=== PATIENT | female | born 1955 | race Caucasian/White ===

== ENCOUNTER → 2016-10-05 | Outpatient (CLI) | payer BC ==
[~2016-10-05] MED LIST: ATEN50TA8 PO; FEXO5TAB2 PO; LOSA1TAB PO
--- NOTE | 2016-10-05 14:17 | DIAGNOSTIC IMAGING REPORT ---
A-PORT CHECK CLINICAL HISTORY: T82.41XAtube position COMPARISON STUDY: None FLUOROSCOPY TIME: 6 seconds. FINDINGS: The port is patent. Contrast is seen exiting the tip of the central catheter in superior vena cava. There appears to be a localized fibrin sheath. The tube itself is intact. IMPRESSION: 1. Study confirms the tube to be patent. 2. Fibrin sheath at the very tip of the catheter 3. No evidence for tube breakage or obstructive change The above report was generated using voice recognition software. It may contain grammatical, syntax or spelling errors. Electronically signed by: Evan Andrews M.D. 10/05/2016 2:16 PM Dictated Date/Time: 10/05/2016 2:14 PM
== END | disposition home or self-care (01) ==
LOC: C.RAD 13:36
PROVIDERS: ATTEND Internal Medicine Hematology
DX: T82.41XA Breakdown (mechanical) of vascular dialysis catheter, initial encounter (principal); Y84.9 Medical procedure, unspecified as the cause of abnormal reaction of the patient, or of later complication, without mention of misadventure at the time of the procedure

== ENCOUNTER → 2017-07-13 | Outpatient (CLI) | payer OTHER ==
[~2017-07-13] MED LIST changes: +OPTIRAY 320 IV PRN
--- NOTE | 2017-07-13 08:34 | DIAGNOSTIC IMAGING REPORT ---
ABD/PELVIS IV AND ORAL CONT CT DOSE: HISTORY: Ovarian carcinoma X TECHNIQUE: Multiaxial CT images of the abdomen and pelvis were performed following the use of intravenous and oral contrast. A dose lowering technique was utilized adhering to the principles of ALARA. COMPARISON STUDY: 09/06/2016 GG FINDINGS: Lung bases are clear. Several small nonspecific hepatic hypodensities. No biliary ductal distention. Moderate abdominal and pelvic ascites. Subcapsular density of the spleen unchanged in the prior study. Kidneys negative for hydronephrosis. Omental implants are present are considered minimal. These may be its inferior by the presence of the abdominal and pelvic ascites. Nonobstructive bowel pattern. No significant abdominal or pelvic adenopathy. Slight heterogeneity of bone marrow density unchanged in the prior exam. No significant inguinal adenopathy. IMPRESSION: Moderate abdominal and pelvic ascites. Stable renal hepatic and potentially splenic cysts. Nonobstructive bowel pattern. The above report was generated using voice recognition software. It may contain grammatical, syntax or spelling errors. Electronically signed by: Evan Andrews M.D. 07/13/2017 8:33 AM Dictated Date/Time: 07/13/2017 8:25 AM
--- NOTE | 2017-07-13 08:40 | DIAGNOSTIC IMAGING REPORT ---
CHEST CT WITH CONTRAST CT DOSE: 1627.47 mGy.cm HISTORY: Acute epigastric abdominal pain with history of ovarian carcinoma X TECHNIQUE: Multiaxial CT images of the chest were performed following the intravenous administration of contrast. A dose lowering technique was utilized adhering to the principles of ALARA. COMPARISON: CT chest, abdomen and pelvis from outside facility 09/06/2016, CT abdomen and pelvis of same day FINDINGS: Heterogeneous multinodular thyroid with 1.4 cm low attenuating nodule of the inferior right thyroid. No pathologically enlarged lymph nodes of the chest are identified. The heart is normal in size without pericardial effusion. Right internal jugular Khlteo-k-Dlpc catheter is noted with distal tip terminating in the SVC. The thoracic aorta is normal in both course and caliber with moderate mixed plaquing of the aortic arch and origin of the great vessels. Imaged great vessels appear patent. Pulmonary arterial tree is unremarkable. There is no pneumothorax or pleural effusion. No lobar airspace consolidation, suspicious pulmonary nodules or masses identified. Minimal bilateral bronchial wall thickening, possibly reflecting bronchitis. Mild scarring of the right lung apex. Minimal apical centrilobular emphysematous changes. Ascites of the upper abdomen. Low attenuating lesions of the liver are seen measuring up to 1.0 cm within left hepatic lobe suggesting hepatic cysts. Small sliding-type hiatal hernia. 2.1 x 0.9 cm hypoechoic subcapsular lesion of the posterior spleen appears unchanged from comparison study 09/06/2016. Decreased size of a soft tissue nodule the subcutaneous tissues posterior to the right shoulder, now measuring 9 mm, previously measuring 1.8 cm which is likely benign. Bones appear intact without suspicious lytic or blastic bony lesions identified. No acute fracture identified. Mild to moderate multilevel endplate spurring about the spine. IMPRESSION: 1. No acute intrathoracic abnormality identified. No evidence of pathologic adenopathy or intrathoracic metastatic disease. 2. Upper abdominal ascites. 3. No evidence of bony metastatic disease. 4. Small sliding-type hiatal hernia. Electronically signed by: Zion Gross M.D. 07/13/2017 8:39 AM Dictated Date/Time: 07/13/2017 8:28 AM
== END | disposition home or self-care (01) ==
LOC: C.CTS 07:47
PROVIDERS: ATTEND Internal Medicine Hematology
DX: C78.6 Secondary malignant neoplasm of retroperitoneum and peritoneum (principal); R10.13 Epigastric pain; R18.8 Other ascites; K76.89 Other specified diseases of liver; K44.9 Diaphragmatic hernia without obstruction or gangrene

== ENCOUNTER 2020-02-14 14:38 | Inpatient (IN) ==
[2020-02-14] MEDS ORDERED: SODIUM CHLORIDE 0.9% 1000ML 1,000 ML IV ONE (15:40)
--- NOTE | 2020-02-14 15:47 | Emergency Department Note ---
Impression & Plan Hypomagnesemia, Peritoneal carcinoma, CKD (chronic kidney disease), stage III, Hypokalemia ED Provider Note NAME: CAROLINA CONSTANTINO AGE: 64 SEX: F ARRIVES VIA: Walk-In INFORMANT: Patient, ED PROVIDER(S): Fredy Clemons MD CHIEF COMPLAINT: Low mg, K PLAN: Disposition: Admit MEDICAL DECISION MAKING: The patient is a pleasant 64-year-old woman with a past medical history of peritoneal carcinomatosis related to ovarian cancer undergoing chemotherapy presents emergency department for evaluation after having outpatient blood work showing a magnesium of 0.6 and potassium of 3.3 in the setting of having therapeutic paracentesis yesterday where she reports she had 6 L removed. She denies any chest pain, shortness of breath, cough, congestion, fevers, chills, nausea, vomiting, diarrhea. She reports her main symptoms are feeling gene ralized weakness and fatigue. Outpatient blood work today demonstrated the following: CBC: 12.26>11.8/36<215 CMP: 141/3.33 97/27 25/1.4<143. AST, ALT, alk phos: 103, 58, 200. Mg 0.6 On arrival patient is fatigued appearing but no acute distress, afebrile stable vital signs. She has generalized abdominal discomfort without guarding or rebound. EKG without overt acute ischemia. Given the patient had blood work approximately 2 hours prior to arrival will defer repeating blood work at this time and defer additional diagnostics admitting team. Patient was ordered for IV magnesium and potassium repletion. Patient is agreeable with recommendation for admission. [facility] admitting team, Carrington Goodwin PA-C with Dr. Sargent, [facility] hospitalist will evaluate the patient for admission. Additional labs and imaging per admitting team. Triage Nursing notes reviewed and agree them. Additional history obtained from [facility] records. Prior medical records reviewed Vital Signs: reviewed and remarkable for no significant abnormalities Differential diagnosis: Infection, dehydration, metabolic abnormality, hypo/hyperglycemia, electrolyte disturbance, anemia, hypoxia, cardiac sources, intracerebral event, toxicologic, neurologic, as well as other pathologies. ER treatment provided: See below. Diagnostics interpreted by me: ECG: Normal sinus rhythm, 86 bpm, PACs, no overt ST elevation or depression. Cardiac Monitoring: An order for continuous cardiac monitoring was placed and demonstrated normal sinus rhythm, 86 bpm, PACs. Consultation(s): Carrington Goodwin PA-C with [facility] hospitalist will evaluate the patient for admission. HPI: The patient is a pleasant 64-year-old woman with a past medical history of peritoneal carcinomatosis related to ovarian cancer undergoing chemotherapy pr [facility] department for evaluation after having outpatient blood work showing a magnesium of 0.6 and potassium of 3.3 in the setting of having therapeutic paracentesis yesterday where she reports she had 6 L removed. She denies any chest pain, shortness of breath, cough, congestion, fevers, chills, nausea, vomiting, diarrhea. She reports her main symptoms are feeling generalized weakness and fatigue. ROS: See above HPI for pertinent positives & negatives. A total of 10 systems reviewed and were otherwise negative. PAST MEDICAL HISTORY:See Below PAST SURGICAL HISTORY:See Below FAMILY HISTORY:See Below SOCIAL HISTORY:See Below HOME MEDICATIONS:See Below ALLERGIES:See Below VITALS:See Below PHYSICAL EXAMINATION: GENERAL: Awake, alert, fatigued-appearing, in no distress HENT: Normocephalic, atraumatic. Oropharynx unremarkable. EYES: Normal conjunctiva. Sclera non-icteric. NECK: Supple. No nuchal rigidity. FROM. No JVD. RESPIRATORY: Clear to auscultation. CARDIAC: Regular rate, normal rhythm. Extremities warm and well perfused. Pulses equal. ABDOMEN: Soft, non-distended. Generalized abdominal discomfort without discrete tenderness. No rebound or guarding. No masses. RECTAL: Deferred. MUSCULOSKELETAL: Chest examination reveals no tenderness. The back is symmetrical on inspection without obvious abnormality. There is no CVA tenderne ss to palpation. No joint edema. LOWER EXTREMITIES: Calves are equal size bilaterally and non-tender. 1+ bilateral lower extremity edema. No discoloration. NEURO: Normal sensorium. No sensory or motor deficits noted. SKIN: No rash or jaundice noted. Fredy Clemons MD Past Med/Surg History Medical History CKD (chronic kidney disease), stage III HTN (hypertension) Ovarian cancer Surgical History History of colonoscopy History of exploratory laparotomy History of total abdominal hysterectomy and bilateral salpingo-oophorectomy Family History Grandmother Cancer Father Hypertension Mother Stroke Social History Smoking Status: Current every day smoker Tobacco Type: Cigarettes Second Hand Exposure: No; Do You Dip or Chew Tobacco: No; Tobacco Cessation Education Requested by Patient: No Hx Alcohol Use: No Hx Substance Use: No Preferred Language: Russian Communication Ability: Effective Loss Prevention Investigator Required: No Beliefs That Will Affect Care: None Current Living Situation: Spouse Other Information That Helps Us Care for You: No Feels Safe at Home: Yes Safety Concerns: Feels Safe At This Time Assistive Devices: Glasses and Walker Allergies Allergies Allergy/AdvReac Type Severity Reaction Status Date / Time castor oil Allergy Severe ANAPHYLAXIS Verified 02/13/20 12:13 paclitaxel Allergy Severe ANAPHYLAXIS Verified 02/13/20 12:13 Ethanol Allergy Severe ANAPHYLAXIS Uncoded 02/13/20 12:13 Home Meds Home Medications Medication Instructions Recorded Confirmed aspirin [Aspir-81] 81 mg PO DAILY 02/14/20 02/14/20 atenolol 25 mg PO DAILY 02/14/20 02/14/20 esomeprazole magnesium 20 mg PO DAILY 02/14/20 02/14/20 furosemide [Lasix] 40 mg PO DAILY 02/14/20 02/14/20 levocetirizine 5 mg PO PM 02/14/20 02/14/20 ondansetron 8 mg PO Q8H PRN 02/14/20 02/14/20 prochlorperazine maleate 10 mg PO Q6H PRN 02/14/20 02/14/20 [Compazine] Results & Data (ED) Vital Signs Vital Signs - 24 hr 02/14/20 14:48 02/14/20 16:10 Temperature 36.7 C Temperature Source Oral Pulse Rate 110 H Pulse Rate [Right Finger] 88 Respiratory Rate 20 20 Respiratory Effort / Characteristics Non-Labored Respiratory Depth Normal Blood Pressure 107/66 Blood Pressure [Right Arm] 131/72 Blood Pressure Mean 79 Blood Pressure Mean [Right Arm] 91 Pulse Oximetry 98 95 Oxygen Delivery Method Room Air Sepsis Recent Fever Within 48 Hours No Sepsis New/Unexplained Change in Mental Status N/A Sepsis Action Taken by Nursing No Action Required Laboratory Data Result diagrams: 02/14/20 16:00 02/14/20 20:07 Lab Results 02/14/20 02/14/20 02/14/20 Range/Units 16:00 16:00 16:00 WBC 12.59 H (4.8-10.8) K/uL RBC 3.43 L (4.2-5.4) M/uL Hgb 11.1 L (12.0-16.0) g/dL Hct 34.0 L (37-47) % MCV 99.1 (80-100) fL MCH 32.4 (25-34) pg MCHC 32.6 (32-36) g/dL RDW Std Deviation 76.8 H (36.4-46.3) fL RDW Coeff of Ross 21.6 H (11.5-14.5) % Plt Count 218 (130-400) K/uL MPV 9.7 (7.4-10.4) fL Immature Gran % (Auto) 1.0 % Neut % (Auto) 76.8 % Lymph % (Auto) 10.4 % Larue % (Auto) 11.6 % Eos % (Auto) 0.0 % Baso % (Auto) 0.2 % Neut # (Auto) 9.68 H (1.4-6.5) K/uL Lymph # (Auto) 1.31 (1.2-3.4) K/uL Larue # (Auto) 1.46 H (0.11-0.59) K/uL Eos # (Auto) 0.00 (0-0.5) K/uL Baso # (Auto) 0.02 (0-0.2) K/uL Immature Gran # (Auto) 0.12 H (0.00-0.02) K/uL Absolute Nucleated RBC 0.12 H (0-0) K/uL Nucleated RBC % (auto) 1.0 % Polychromasia 1+ D-Dimer 1610 H* (0-500) ug/L FEU Sodium 140 (136-145) mmol/L Potassium 3.1 L (3.5-5.1) mmol/L Chloride 101 (98-107) mmol/L Carbon Dioxide 28 (21-32) mmol/L Anion Gap 11.0 (3-11) BUN 27 H (7-18) mg/dl Creatinine 1.37 H (0.6-1.2) mg/dl Est Cr Clr Drug Dosing 45.1 ml/min Est GFR ( Amer) 46.8 Est GFR (Non-Af Amer) 40.4 BUN/Creatinine Ratio 19.4 (10-20) Glucose 122 H (70-99) mg/dl Calcium 7.1 L (8.5-10.1) mg/dl Phosphorus 5.1 H (2.5-4.9) mg/dl Magnesium 0.6 L* (1.8-2.4) mg/dl Total Bilirubin 0.9 (0.2-1) mg/dl AST 95 H (15-37) U/L ALT 59 (12-78) U/L Alkaline Phosphatase 181 H (45-117) U/L Total Creatine Kinase 147 (26-192) U/L CK-MB (CK-2) < 1.0 (0.5-3.6) ng/ml CK/CKMB % Calc TNP Troponin I < 0.015 (0-0.045) ng/ml Total Protein 7.3 (6.4-8.2) gm/dl Albumin 2.5 L (3.4-5.0) gm/dl Globulin 4.8 H (2.5-4.0) gm/dl Albumin/Globulin Ratio 0.5 L (0.9-2) Lipase 53 L (73-393) U/L Administered Medications Potassium Chloride/Sodium Chloride (Normal Saline W/20 Meq Kcl) 20 meq in 1,000 mls @ 75 mls/hr IV .[id number] [facility] Stop: 02/15/20 07:49 Last Admin: 02/14/20 22:21 Dose: 75 mls/hr Documented by: [id number] Magnesium Sulfate/Dextrose (Magnesium Sulfate / D5w) 1 gm in 100 mls @ 50 mls/hr IV Q2H [facility] Stop: 02/15/20 01:01 Last Admin: 02/14/20 22:28 Dose: 50 mls/hr Documented by: [id number] Potassium Chloride (K Livan / Wtr) 10 meq in 100 mls @ 100 mls/hr IV Q1H [facility] Stop: 02/15/20 03:11 Last Admin: 02/14/20 23:37 Dose: 100 mls/hr Documented by: [id number] Discontinued Medications Sodium Chloride (Nss 1000ml) 1,000 mls @ 999 mls/hr IV .Q1H1M ONE Stop: 02/14/20 16:40 Last Infusion: 02/14/20 17:25 Dose: 0 mls/hr Documented by: [id number] Admin: 02/14/20 16:24 Dose: 999 mls/hr Documented by: [id number] Potassium Chloride (K Livan / Wtr) 10 meq in 100 mls @ 100 mls/hr IV Q1H [facility] Stop: 02/14/20 17:44 Last Infusion: 02/14/20 20:14 Dose: 0 mls/hr Documented by: [id number] Admin: 02/14/20 18:17 Dose: 100 mls/hr Documented by: [id number] Infusion: 02/14/20 17:24 Dose: 0 mls/hr Documented by: [id number] Admin: 02/14/20 16:24 Dose: 100 mls/hr Documented by: [id number] Magnesium Sulfate/Dextrose (Magnesium Sulfate / D5w) 1 gm in 100 mls @ 100 mls/hr IV Q1H [facility] Stop: 02/14/20 17:40 Last Infusion: 02/14/20 20:14 Dose: 0 mls/hr Documented by: [id number] Admin: 02/14/20 18:17 Dose: 100 mls/hr Documented by: [id number] Infusion: 02/14/20 17:24 Dose: 0 mls/hr Documented by: [id number] Admin: 02/14/20 16:24 Dose: 100 mls/hr Documented by: [id number] Albumin Human (Albumin 25%) 12.5 gm in 50 mls @ 50 mls/hr IV Q1H [facility] Stop: 02/14/20 19:44 Last Infusion: 02/14/20 22:22 Dose: 0 mls/hr Documented by: [id number] Admin: 02/14/20 21:29 Dose: 50 mls/hr Documented by: [id number] Infusion: 02/14/20 21:00 Dose: 50 mls/hr Documented by: [id number] Admin: 02/14/20 20:00 Dose: 50 mls/hr Documented by: [id number] Calcium Gluconate 1,000 mg/ (Sodium Chloride) 60 mls @ 240 mls/hr IV NOW STA Stop: 02/14/20 21:23 Last Infusion: 02/14/20 23:29 Dose: 0 mls/hr Documented by: [id number] Admin: 02/14/20 22:30 Dose: 240 mls/hr Documented by: [id number] Piperacillin Sod/Tazobactam (Sod 3.375 gm/ Dextrose) 115 mls @ 230 mls/hr IV NOW ONE; Protocol Stop: 02/14/20 22:29 Last Infusion: 02/14/20 23:29 Dose: 0 mls/hr Documented by: [id number] Admin: 02/14/20 22:33 Dose: 230 mls/hr Documented by: [id number] Ioversol (Optiray 320 125ml) 120 ml IV ONCE ONE Stop: 02/14/20 19:47 Last Admin: 02/14/20 19:46 Dose: 120 ml Documented by: [id number] Ondansetron HCl (Ondansetron Inj 2 Mg/Ml 2 Ml Vial) 4 mg IV NOW STA Stop: 02/14/20 18:10 Last Admin: 02/14/20 18:00 Dose: 4 mg Documented by: [id number] Ondansetron HCl (Ondansetron Inj 2 Mg/Ml 2 Ml Vial) Confirm Administered Dose 4 mg .ROUTE .STK-MED ONE Stop: 02/14/20 18:12 Last Admin: 02/14/20 19:18 Dose: Not Given Documented by: [id number] Ondansetron HCl (Ondansetron Inj 2 Mg/Ml 2 Ml Vial) 4 mg IV NOW STA Stop: 02/14/20 20:19 Last Admin: 02/14/20 22:24 Dose: 4 mg Documented by: [id number] Ondansetron HCl (Ondansetron Inj 2 Mg/Ml 2 Ml Vial) Confirm Administered Dose 4 mg .ROUTE .STK-MED ONE Stop: 02/14/20 20:21 Last Admin: 02/14/20 20:22 Dose: 4 mg Documented by: [id number] Potassium Chloride (Potassium Chloride Crtab 20 Meq Tabcr) 60 meq PO NOW STA Stop: 02/14/20 21:03 Last Admin: 02/14/20 23:29 Dose: Not Given Documented by: [id number] Discharge Plan Visit Data Chief Complaint: Abnormal Labs/Diagnostic Testing Stated Complaint: ABNORMAL LABS DR REFERRED ED Provider: Fredy Clemons Discharge Problem: Hypomagnesemia, Peritoneal carcinoma, CKD (chronic kidney disease), stage III, Hypokalemia Patient Disposition: Admitted As Inpatient Discharge Instructions Interventions: ED Discharge Assessment Last Done: 02/14/20 20:40
[2020-02-14] MEDS: POTASSIUM CHLORIDE / WTR 10 MEQ/100 ML PLCT IV SCH ×3 (16:24→23:37)
[2020-02-14] MEDS: MAGNESIUM SULFATE / D5W 1 GM/100 ML BAG IV SCH ×3 (16:24→22:28)
[2020-02-14 16:53] LABS: Basophils # (auto) 0.02 K/uL (0-0.2); Basophils % (auto) 0.2 %; Hemoglobin 11.1 g/dL (12.0-16.0); Immature Granulocytes # (auto) 0.12 K/uL (0.00-0.02); Lymphocytes # (auto) 1.31 K/uL (1.2-3.4); Lymphocytes % (auto) 10.4 %; Mean Corpuscular Hemoglobin 32.4 pg (25-34); Mean Corpuscular Hgb Conc 32.6 g/dL (32-36); Mean Corpuscular Volume 99.1 fL (80-100); Mean Platelet Volume 9.7 fL (7.4-10.4); Monocytes # (auto) 1.46 K/uL (0.11-0.59); Monocytes % (auto) 11.6 %; Neutrophils # (auto) 9.68 K/uL (1.4-6.5); Neutrophils % (auto) 76.8 %; Nucleated RBC # (auto) 0.12 K/uL (0-0); Platelet Count 218 K/uL (130-400); RDW Coefficient of Variation 21.6 % (11.5-14.5); RDW Standard Deviation 76.8 fL (36.4-46.3); Red Blood Count 3.43 M/uL (4.2-5.4); White Blood Count 12.59 K/uL (4.8-10.8)
[2020-02-14 17:31] LABS: Alanine Aminotransferase 59 U/L (12-78); Albumin Globulin Ratio 0.5 (0.9-2); Albumin Level 2.5 gm/dl (3.4-5.0); Alkaline Phosphatase 181 U/L (45-117); Aspartate Aminotransferase 95 U/L (15-37); BUN Creatinine Ratio 19.4 (10-20); Bilirubin,Total 0.9 mg/dl (0.2-1); Blood Urea Nitrogen 27 mg/dl (7-18); Calcium 7.1 mg/dl (8.5-10.1); Carbon Dioxide 28 mmol/L (21-32); Chloride 101 mmol/L (98-107); Creatine Kinase 147 U/L (26-192); Creatine Kinase MB < 1.0 ng/ml (0.5-3.6); Creatinine Clr Calc Pharmacy 45.1 ml/min; Est GFR (African American) 46.8; Est GFR (Non-African American) 40.4; Globulin 4.8 gm/dl (2.5-4.0); Glucose 122 mg/dl (70-99); Lipase 53 U/L (73-393); Magnesium 0.6 mg/dl (1.8-2.4); Phosphorus 5.1 mg/dl (2.5-4.9); Polychromasia 1+; Potassium 3.1 mmol/L (3.5-5.1); Sodium 140 mmol/L (136-145); Total Protein 7.3 gm/dl (6.4-8.2); Troponin I < 0.015 ng/ml (0-0.045)
--- NOTE | 2020-02-14 17:32 | History & Physical Report ---
Date of Service February 14, 2020 Assessment & Plan (1) SIRS (systemic inflammatory response syndrome): (2) Abdominal pain with vomiting: This is a 64-year-old female who has significant past medical history of ovarian cancer status post SIMONE with BSO, peritoneal carcinomatosis, HTN, CKD stage III, chemo-induced neuropathy who presents to ED secondary to vomiting x1 day and referred by oncology secondary to abnormal labs. Pt currently undergoing chemotherapy for Ovarian ca with mets to peritoneum. Had therapeutic paracentesis yesterday. Developed abd pain and emesis @ 3:30am. Now with severe electrolyte abnormalities. Meets SIRS criteria in setting of tachycardia and leukocytosis. Admit to PCU replace electrolytes K, Mag NSS + 20meq KCL 75 cc/hr x 1 L, 25g Albumin x 1 obtain CTA chest r/o PE - given sinus tachycardia, elevated d-dimer Obtain CT abd w/ contrast r/o SBO or other abdominal pathology Venous duplex lower ext negative Blood cultures and UA +C&S ordered Start Zosyn until infection ruled out, including SBP given recent paracentesis NPO until CT results GI consulted in setting of abdominal pain, recent paracentesis (3) Hypomagnesemia: mag 0.6 replace with 1g IV mag x 4 repeat mag q4 hr, continue repletion as necessary (4) Hypokalemia: K 3.1 ordered potassium chloride 10 meq x 2 in ED NSS + 20meq KCL q4h bmp, replace as necessary (5) HTN (hypertension): BP stable continue atenolol with parameters, hold lasix (6) CKD (chronic kidney disease), stage III: baseline cr 1.4 bun/cr 27 and 1.37 monitor, avoid nephrotoxic agents (7) 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 Cruz Status post SIMONE with BSO and chemotherapy Currently receiving gemcitabine weekly x2, 1 week off Had therapeutic paracentesis yesterday, 02/13/2020 2/2 malignant ascites (8) Anemia: normocytic, normochromic no s/sx of bleeding likely in setting of cancer (9) DVT prophylaxis: SQ Lovenox Disposition: admit to PCU Follow up: PCP Dr. Sifuentes upon discharge Pt was seen and examined in collaboration with Dr. Sargent, please see addendum History of Present Illness Chief Complaint: Vomiting x1 day; referred by oncology secondary to abnormal labs. Primary Care Provider: Doug Sifuentes DO This is a 64-year-old female who has significant past medical history of ovarian cancer status post SIMONE with BSO, peritoneal carcinomatosis, HTN, CKD stage III, chemo-induced neuropathy who presents to ED secondary to vomiting x1 day and referred by oncology secondary to abnormal labs. She follows Dr. Cruz for ovarian cancer in which she is currently on gemcitabine once weekly x2 weeks with a week off. She was to undergo chemotherapy today, but felt unwell. She had therapeutic paracentesis yesterday secondary to malignant ascites in which overall went well. 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 She has vomited approximately 9-10 times. Denies any bilious vomiting or hematemesis. Did not take any of her medications today and has been unable to tolerate any food, but has been drinking water. She presented to oncology office for lab work which revealed electrolyte abnormalities including hypomagnesemia and hypokalemia and was referred to ED for further evaluation. Her last episode of vomiting was prior to arrival and currently feels mildly improved. She complains of feeling nauseated and generalized abdominal pain. Pain waxes and wanes and feels related to paracentesis yesterday. Currently pain 0/10 at rest, but gets worse with movement or touching. Has not tried anything to improve pain. Antiemetics help nausea. Has never experienced before. Her last paracentesis was approximately 2 years ago. She denies fever, chills, sweats, lightheadedness, dizziness, chest pain, shortness of breath, palpitations, diarrhea, melena, hematochezia, dysuria, increased urgency or frequency with urination. Her last bowel movement was this morning and it was normal for her. Other than today despite chemo she feels she has been otherwise eating and drinking well. In ED patient remained hemodynamically stable initially, but during my examination became tachycardic in the 130s. Lab work notable for magnesium 0.6, BUN 27, creatinine 1.37, K3.0, albumin 2.5, corrected calcium 8.3, H&H 11.1 and 34.0, WBC 12.59k. Allergies Allergy/AdvReac Type Severity Reaction Status Date / Time castor oil Allergy Severe ANAPHYLAXIS Verified 02/13/20 12:13 paclitaxel Allergy Severe ANAPHYLAXIS Verified 02/13/20 12:13 Ethanol Allergy Severe ANAPHYLAXIS Uncoded 02/13/20 12:13 Home Medications Medication Instructions Recorded Confirmed Type aspirin [Aspir-81] 81 mg PO DAILY 02/14/20 02/14/20 History atenolol 25 mg PO DAILY 02/14/20 02/14/20 History esomeprazole magnesium 20 mg PO DAILY 02/14/20 02/14/20 History furosemide [Lasix] 40 mg PO DAILY 02/14/20 02/14/20 History levocetirizine 5 mg PO PM 02/14/20 02/14/20 History ondansetron 8 mg PO Q8H PRN 02/14/20 02/14/20 History prochlorperazine maleate 10 mg PO Q6H PRN 02/14/20 02/14/20 History [Compazine] Past Med/Surg History Medical History CKD (chronic kidney disease), stage III HTN (hypertension) Ovarian cancer Surgical History History of colonoscopy History of exploratory laparotomy History of total abdominal hysterectomy and bilateral salpingo-oophorectomy Family History Grandmother Cancer Father Hypertension Mother Stroke Social History Smoking Status: Current every day smoker Tobacco Type: Cigarettes Second Hand Exposure: Yes; Hx Alcohol Use: No Hx Substance Use: No Preferred Language: Citizen Of [place] Communication Ability: Effective Grocery Checker Required: No Beliefs That Will Affect Care: None Current Living Situation: Spouse Feels Safe at Home: Yes Assistive Devices: None and Glasses Review of Systems Review of Systems: All systems reviewed & are unremarkable except as noted in HPI & below Physical Exam Physical Exam: Constitutional: WD/WN, Chronically ill appearing F, vitals as above, NAD, sitting up in bed, pleasant, conversing easily Head: Normocephalic, Atraumatic Eyes: PERRL, conjunctivae normal, anicteric sclerae ENMT: external ear and nose normal, oropharynx normal Neck: trachea midline, no thyromegaly normal visual inspection Respiratory: normal respiratory effort, lungs clear to auscultation, no wheeze, rales, rhonchi. Normal insp/exp effort, no accessory muscle use Cardiovascular: tachycardic rate, regular rhythm, no murmur, +1 lower ext edema with mild erythematous venous stasis change, unchanged per pt Vessels: no JVD or carotid bruit Chest: normal inspection of chest Abdomen: decreased bowel sounds, soft, tender to light and deep palpation diffusely L > R, but no rebound, guarding or rigidity, no hepatosplenomegaly Musculoskeletal: no cyanosis or clubbing, extremities motor strength 5/5 Skin: no rashes, warm and dry normal turgor Neurologic: PERRL, EOMI, accommodation nl, no face palsy, no dysarthria CN's II-XI intact bilaterally and moves all extremities Psychiatric: A+Ox3, euthymic affect Lymphatic: no cervical or axillary lymphadenopathy : deferred Results & Data Results & Data ([facility]) Vital Signs (Past 12 Hours) Vital Signs Temp Pulse Pulse Resp BP BP Pulse Ox 02/14/20 17:00 131 H 16 129/85 94 02/14/20 16:52 130 H 19 144/101 H 96 02/14/20 16:30 84 20 130/72 97 02/14/20 16:10 88 20 131/72 95 02/14/20 14:48 36.7 C 110 H 20 107/66 98 Laboratory Results Short CBC 02/14/20 02/14/20 Range/Units 16:00 16:00 WBC 12.59 H (4.8-10.8) K/uL Hgb 11.1 L (12.0-16.0) g/dL Hct 34.0 L (37-47) % Plt Count 218 (130-400) K/uL Magnesium 0.6 L* (1.8-2.4) mg/dl BMP 02/14/20 16:00 Sodium 140 Potassium 3.1 L Chloride 101 Carbon Dioxide 28 BUN 27 H Creatinine 1.37 H Glucose 122 H Calcium 7.1 L Cardiac Enzymes 02/14/20 Range/Units 16:00 Total Creatine Kinase 147 (26-192) U/L CK-MB (CK-2) < 1.0 (0.5-3.6) ng/ml Troponin I < 0.015 (0-0.045) ng/ml Liver Function 02/14/20 Range/Units 16:00 Total Bilirubin 0.9 (0.2-1) mg/dl AST 95 H (15-37) U/L ALT 59 (12-78) U/L Alkaline Phosphatase 181 H (45-117) U/L Albumin 2.5 L (3.4-5.0) gm/dl Diagnostic Findings Venous doppler lower ext: pending CT abd/pelvis with oral contrast pending Medications Administered Discontinued Medications Sodium Chloride (Nss 1000ml) 1,000 mls @ 999 mls/hr IV .Q1H1M ONE Stop: 02/14/20 16:40 Last Admin: 02/14/20 16:24 Dose: 999 mls/hr Documented by: [id number] Potassium Chloride (K Livan / Wtr) 10 meq in 100 mls @ 100 mls/hr IV Q1H AILEEN Stop: 02/14/20 17:44 Last Infusion: 02/14/20 17:24 Dose: 0 mls/hr Documented by: [id number] Admin: 02/14/20 16:24 Dose: 100 mls/hr Documented by: [id number] Magnesium Sulfate/Dextrose (Magnesium Sulfate / D5w) 1 gm in 100 mls @ 100 mls/hr IV Q1H AILEEN Stop: 02/14/20 17:40 Last Infusion: 02/14/20 17:24 Dose: 0 mls/hr Documented by: [id number] Admin: 02/14/20 16:24 Dose: 100 mls/hr Documented by: [id number] ECG Rate (beats per minute): 130 Rhythm: sinus tachycardia Findings: + nonspecific-ST abn and + PAC Additional Comments: t wave inversions V4-V6 and II, III and AVF Code Status & VTE Plan Code Status Full Code VTE Prophylaxis Plan VTE Prophylaxis will be ordered: Yes Supervising Physician Co-Signing Physician Notes I saw this patient with the physician supply chain assistant, I participated in the history, physical, review of systems, and physical exam. I reviewed the medications with the patient and the physician supply chain assistant and helped reconcile the medications. I helped take a detailed family and social history as well. I formulated the assessment and plan personally with the physician supply chain assistant and went over it with the patient. Physical Exam Gen-AAO x 3, NAD, Afebrile Head-NCAT, EOMI, PERRLA, Anicteric Sclera, No Posterior Pharyngeal Erythema Neck-Supple, No JVD, No Thyromegaly, No Masses, No LAD, No Bruits Lungs-Clear to Auscultation Bilaterally, No Rales, No Rhonchi, No Wheezing, No Crepitus Chest-No S4, +S1, +S2, No S3, No Murmurs, No Rubs, No Gallops, No Ectopy Abdomen-Soft, Bowel Sounds Present, Tender, Non Distended, No Hepatomegaly, No Splenomegaly, No Palpable Masses, No Rebound, No Rigidity, No Guarding Musculoskeletal-Full Range of Motion Bilaterally, No CVAT Extremities-No Cyanosis, No Clubbing, + Pitting Edema Nuero-Cranial Nerves II-XII grossly intact, Motor WNL, DTRs WNL, Strength WNL, Non Focal Psych-Normal Mood
[2020-02-14] MEDS ORDERED: cefTRIAXone SODIUM 2,000 MG in DEXTROSE 5% 50 ML IV SCH (17:45)
--- NOTE | 2020-02-14 17:52 | Ultrasound Report ---
BILATERAL LOWER EXTREMITY VENOUS DOPPLER HISTORY: Acute pain and swelling of the lower extremities edema COMPARISON STUDY: None. FINDINGS: There is normal compressibility, flow, and augmentation within the bilateral lower extremit y deep venous systems. IMPRESSION: No DVT within the right or left lower extremity. ACT 112: Negative or not required by law. Electronically signed by: Zion Gross M.D. 02/14/2020 5:51 PM
[2020-02-14 17:58] LABS: D Dimer 1610 ug/L FEU (0-500)
--- NOTE | 2020-02-14 18:03 | XRay Report ---
XR chest 1V portable HISTORY: 64 years-old Female n/v acute nausea and vomiting COMPARISON: CT chest 07/13/2017 TECHNIQUE: Portable AP view of the chest FINDINGS: Cardiomediastinal and hilar silhouettes are within normal limits. Right IJ Kbltec-s-[id number] catheter is noted with distal tip terminating in the expected location of the mid SVC. No pneumothorax, pleural e ffusion, airspace consolidation or overt pulmonary edema. Mild likely chronic interstitial coarsening of the lung bases. Degenerative changes of the shoulders and spine. IMPRESSION: No acute process. ACT 112: Negative or not required by law. The above report was generated using voice recognition software. It may contain grammatical, syntax o r spelling errors. Electronically signed by: Zion Gross M.D. 02/14/2020 6:02 PM
[2020-02-14] MEDS ORDERED: ONDANSETRON INJ 2 MG/ML 2 ML VIAL IV STA ×2 (18:09→20:18)
[2020-02-14] MEDS ORDERED: ONDANSETRON INJ 2 MG/ML 2 ML VIAL ONE ×2 (18:11→20:20)
[2020-02-14] MEDS ORDERED: PIPERACILL/TAZOBAC CONSULT ACTIVE PRN (18:27)
[2020-02-14] MEDS ORDERED: NSS + 20MEQ KCL 20 MEQ/1,000 ML BAG IV SCH (18:30)
[2020-02-14] MEDS ORDERED: OPTIRAY 320 125ml IV ONE (19:46)
[2020-02-14] MEDS: ALBUMIN 25% 12.5 GM/50 ML VIAL IV SCH ×2 (20:00→21:29)
--- NOTE | 2020-02-14 20:24 | CT Scan Report ---
CT angio chest PE protocol, CT abd pelvis oral and IV con CT DOSE: 709.45 mGy.cm HISTORY: 64 years-old Female with PE. Acute shortness of breath with chest pain, nausea, vomiting a cute generalized abdominal pain. History of ovarian cancer. TECHNIQUE: Multiple CTA images of the chest were obtained after the intravenous administration of 120 ml Optiray 320. Coronal and sagittal MIPS were obtained from the axial data set and were submitted for review. All measurements were obtained according to NASCET criteria. CT abdomen and pelvis with IV and oral contrast was also conducted. A dose lowering technique was utilized adhering to the princ iples of NICHOLAS. COMPARISON: Chest radiograph of same day, CT chest, abdomen and pelvis 07/13/2017. FINDINGS: CTA: Heart is upper limits of normal in size. Right IJ Rszvdl-r-Xojw catheter distal tip terminates within the inferior SVC. Mixed plaque of the thoracic aorta without aneurysm or dissection. No pulmonary em boli identified. CT CHEST: Multinodular thyroid redemonstrated. Nodules on the right measure up to 1.7 cm. No adenopathy by CT s ize criteria. No pneumothorax or pleural effusion. Moderate bronchial wall thickening with multifocal mucus plugging. Minimal mosaic attenuation with intermixed groundglass densities suggest atelectasis with air trapping. Additionally, there are subtle patchy nondependent groundglass densities of the b zhao right lower lobe. There are no suspicious pulmonary nodules or masses identified. Soft tissues are unremarkable. Degenerative changes of the shoulders and spine. CT ABDOMEN/PELVIS: There is no pneumatosis or pneumoperitoneum. Unchanged appearance of the spleen. Moderate generalized pancreatic atrophy. Unremarkable adrenal glands. Scattered hepatic hypodensities measuring up to 11 mm within the left hepatic lobe are unchanged suggestive of probable cysts. Linear calcifications adj acent to the left portal vein in the senthil hepatis are new from prior. Hepatic and portal veins appea r to be patent. Mildly distended gallbladder with layering intraluminal debris suggestive of sludge v ersus cholelithiasis. No biliary ductal dilation. Bilateral renal cysts measure up to 2.1 cm on the right. Numerous bilateral renal hypodensities are t oo small to characterize. No hydronephrosis. Large renal sinus cyst on the right. Hysterectomy. Decom pressed urinary bladder. Peritoneal calcifications are noted. Plaque of the abdominal aorta without a neurysm. There is no new adenopathy. Small hiatal hernia with mild distal esophageal wall thickening. Moderate wall thickening of the farhana lola antrum. No bowel obstruction. There is moderate to marked diffuse wall thickening with mucosal hy peremia throughout the small bowel. Mild wall thickening is also noted within the majority of the lar ge bowel along with partial distention. The appendix is not definitively seen. Small volume of abdomi nal pelvic ascites has decreased in amount from comparison. Scattered omental and peritoneal calcific ations. Loculated fluid versus hypodense lesion posterior to the mid left spleen measuring 2.1 cm is unchanged. Degenerative changes of the spine, pelvis and hips. No new suspicious osseous lesions. IMPRESSION: 1. No evidence of pulmonary thromboembolic disease. 2. Moderate bronchial wall thickening suggestive of bronchitis versus reactive airway disease with mu cous plugging, mild atelectasis and air trapping. 3. Minimal groundglass patchy opacities of the basal right lower lobe are suggestive of a nonspecific infectious or inflammatory pneumonitis. 4. Moderate to marked diffuse wall thickening involving numerous fluid-filled loops of small bowel ar e suggestive of a nonspecific enteritis. 5. Wall thickening of the gastric antrum may be secondary to partial distention versus gastritis. 6. Small volume of abdominal pelvic ascites has decreased from comparison. 7. Numerous peritoneal and omental calcifications suggest areas of treated disease. 8. Probable cholelithiasis. 9. Additional findings as above. ACT 112: Negative or not required by law. The above report was generated using voice recognition software. It may contain grammatical, syntax o r spelling errors. Electronically signed by: Zion Gross M.D. 02/14/2020 8:23 PM
[2020-02-14 20:35] LABS: BUN Creatinine Ratio 20.4 (10-20); Calcium 6.3 mg/dl (8.5-10.1); Creatinine Clr Calc Pharmacy 47.2 ml/min; Est GFR (African American) 49.4; Est GFR (Non-African American) 42.6; Magnesium 1.2 mg/dl (1.8-2.4); Potassium 3.2 mmol/L (3.5-5.1)
[2020-02-14] MEDS ORDERED: MAGNESIUM SULFATE / D5W 1 GM/100 ML BAG IV SCH (21:00)
[2020-02-14] MEDS ORDERED: POTASSIUM CHLORIDE CRTAB 20 MEQ TABCR PO STA (21:02)
[2020-02-14] MEDS ORDERED: CALCIUM GLUCONATE 10% 1,000 MG in SODIUM CHLORIDE 0.9% 50 ML IV STA (21:09)
[2020-02-14] MEDS ORDERED: POLYETHYLENE (MIRALAX) 17 GM PACK PO PRN (21:11)
[2020-02-14] MEDS ORDERED: ALUMINUM/MAGNESIUM SUSP 30 ML UDC PO PRN (21:11)
[2020-02-14] MEDS ORDERED: ACETAMINOPHEN 325 MG TAB PO PRN (21:11)
[2020-02-14] MEDS ORDERED: MAGNESIUM HYDROXIDE SUSP 30 ML UDC PO PRN (21:11)
[2020-02-14] MEDS ORDERED: PIPERACILLIN/TAZOBACTAM 3.375 GM in DEXTROSE 5% 100 ML IV ONE (22:00)
[2020-02-14 23:00] LABS: Appearance Urine Clear (Clear); Bacteria Urine Automated Negative (Negative); Bilirubin Urine Negative (Negative); Blood Urine Negative (Negative); Color Urine Dark Yellow; Epithelial Cell Urine Auto >30 /lpf (0-5); Glucose Urine UA Negative (Negative); Ketones Urine Negative (Negative); Leukocyte Esterase Urine Negative (Negative); Nitrite Urine Negative (Negative); Protein Urine 2+ (Negative); RBC Urine Automated 0-4 /hpf (0-4); Specific Gravity Urine > 1.045 (1.000-1.030); Urobilinogen Urine Negative (Negative)
[2020-02-14] MEDS ORDERED: HEPARIN 100 UNIT/ML 5ML FLUSH FLUSH PRN (23:02)
[2020-02-15] MEDS: MAGNESIUM SULFATE / D5W 1 GM/100 ML BAG IV SCH (00:27)
[2020-02-15] MEDS: POTASSIUM CHLORIDE / WTR 10 MEQ/100 ML PLCT IV SCH ×3 (00:27→02:30)
[2020-02-15 01:26] LABS: BUN Creatinine Ratio 19.2 (10-20); Calcium 6.5 mg/dl (8.5-10.1); Creatinine Clr Calc Pharmacy 47.2 ml/min; Est GFR (African American) 50.3; Est GFR (Non-African American) 43.4; Magnesium 1.7 mg/dl (1.8-2.4); Potassium 3.5 mmol/L (3.5-5.1)
[2020-02-15] MEDS: PIPERACILLIN/TAZOBACTAM 3.375 GM in DEXTROSE 5% 100 ML IV SCH ×3 (03:46→19:37)
[2020-02-15] MEDS: PROMETHAZINE HCL 25 MG in SODIUM CHLORIDE 0.9% 50 ML IV PRN ×2 (03:46→13:08)
[2020-02-15 04:45] LABS: Basophils # (auto) 0.02 K/uL (0-0.2); Basophils % (auto) 0.2 %; Eosinophils # (auto) 0.01 K/uL (0-0.5); Eosinophils % (auto) 0.1 %; Hematocrit (blood only) 29.7 % (37-47); Hemoglobin 9.7 g/dL (12.0-16.0); Immature Granulocytes % (auto) 0.8 %; Lymphocytes # (auto) 1.38 K/uL (1.2-3.4); Lymphocytes % (auto) 11.2 %; Mean Corpuscular Hemoglobin 32.3 pg (25-34); Mean Corpuscular Hgb Conc 32.7 g/dL (32-36); Monocytes # (auto) 1.72 K/uL (0.11-0.59); Monocytes % (auto) 13.9 %; Neutrophils # (auto) 9.14 K/uL (1.4-6.5); Neutrophils % (auto) 73.8 %; Nucleated RBC # (auto) 0.09 K/uL (0-0); Nucleated RBC % (auto) 0.8 %; Platelet Count 179 K/uL (130-400); RDW Coefficient of Variation 21.8 % (11.5-14.5); RDW Standard Deviation 77.4 fL (36.4-46.3); White Blood Count 12.37 K/uL (4.8-10.8)
[2020-02-15 05:10] LABS: Anisocytosis Present
[2020-02-15 05:12] LABS: Albumin Level 2.3 gm/dl (3.4-5.0); BUN Creatinine Ratio 18.8 (10-20); Calcium 6.6 mg/dl (8.5-10.1); Creatinine Clr Calc Pharmacy 47.5 ml/min; Est GFR (African American) 50.8; Est GFR (Non-African American) 43.8; Potassium 3.5 mmol/L (3.5-5.1)
[2020-02-15 05:36] LABS: Albumin Globulin Ratio 0.6 (0.9-2); Bilirubin,Total 0.9 mg/dl (0.2-1); Globulin 3.7 gm/dl (2.5-4.0)
[2020-02-15 05:44] LABS: Estimated Average Glucose 120 mg/dl; Hemoglobin A1C 5.8 % (4.5-5.6)
--- NOTE | 2020-02-15 07:10 | Electrocardiogram Report ---
Test Reason : Blood Pressure : / mmHG Vent. Rate : 086 BPM Atrial Rate : 086 BPM P-R Int : 118 ms QRS Dur : 086 ms QT Int : 394 ms P-R-T Axes : 040 057 046 degrees QTc Int : 471 ms Sinus rhythm with Premature atrial complexes Low voltage QRS Nonspecific ST abnormality No previous ECGs available Confirmed by Charly Trevino ([id number]) on 02/15/2020 7:10:26 AM Referred By: Bakari Cruz Confirmed By:Charly Trevino
[2020-02-15 08:53] LABS: BUN Creatinine Ratio 17.1 (10-20); Calcium 7.2 mg/dl (8.5-10.1); Est GFR (Non-African American) 39.7; Magnesium 1.9 mg/dl (1.8-2.4); Potassium 3.5 mmol/L (3.5-5.1)
[2020-02-15] MEDS: PANTOprazole 40 MG TAB PO SCH (09:18)
[2020-02-15] MEDS: NICOTINE 21 MG/24 HR TDSY TD SCH (09:18)
[2020-02-15] MEDS: ATENOLOL 25 MG TABLET PO SCH (09:18)
[2020-02-15] MEDS: ASPIRIN 81 MG ECTAB PO SCH (09:18)
[2020-02-15] MEDS: ENOXAPARIN INJ 40 MG/0.4 ML SYR SQ SCH (09:19)
[2020-02-15] MEDS ORDERED: FOSAPREPITANT DIMEGLUMINE 115 MG in 0.9 % SODIUM CHLORIDE 111.2 ML IV ONE (10:00)
--- NOTE | 2020-02-15 10:25 | Gastrointestinal Consultation ---
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 She had u/s guided paracentesis w 6L ascites fluid removal (malignant ascites) on 02/12. CT abd/pelvis w signs of enteritis, suspect chemo induced. - IVF support; continue IV antibx coverage - PPI coverage - Check stool cx, Cdiff if diarrhea present - CL diet; advance as tolerated - Emend 115mg IV x 1 dose today. Zofran prn n/v - US for ascites pocket check. If enough ascites fluid present, will order diagnostic paracentesis to r/o SBP - Would defer endoscopic workup. Pls recall GI over the weekend prn Supervising Physician Co-Signing Physician Notes I saw and evaluated the patient. She was admitted with electrolyte problems and has a history of nausea vomiting and irregular bowel habits. The patient does have a history of ovarian cancer and is presently on gemcitabine Physical examination No obvious distress, no scleral icterus Impression: Patient with recurrent nausea and vomiting, given her history I wonder if this may be related to ongoing chemotherapy or perhaps related to her malignant ascites. As there is a question of gallstones within the gallbladder on imaging perhaps the patient would be best served with an MRCP to look for evidence of intraductal pathology. In the meantime we would suggest beginning Protonix 1 time daily and obtaining a C. difficile to look for evidence of C. difficile infection Recommendations MRCP Stool for C. difficile if not already done Protonix 1 time daily Agree with use of Emend History of Present Illness Reason for Consultation: N/V, abd pain s/p paracentesis for malignant ascites Requesting Physician: Dr. uHmza Herring Attending Physician: Dr. Karishma Carballo History of Present Illness Pt is a 64 y/o w medical hx of high grade serous papillary carcinoma, involving the peritoneum with multiple sites (omentum, bilateral ovarian and fallopian tube surface, cul-de-sac nodule, periappendiceal tissue) Dx in 02/2014, s/p SIMONE, BSO currently undergoing chemotherapy (last dose of Gemzar 02/05/2020) who presented to ED yesterday w c/o nausea and vomiting. Denies hematemesis or coffee ground emesis. Denies associated fever, chills, changes in bowel habits. She did undergo u/s guided paracentesis w 6L ascites fluid removal on 02/12 for malignant ascites. Labs notable for mild leukocytosis, anemia, stable LFTs and BUN/Cr elevations. CT chest/abd/pelvis w contrast showed possible bronchitis vs reactive airway dz w mucous plugging, RLL non specific infectious/inflammatory pneumonitis. There's diffuse wall thickening and fluid filled small bowel loops suggestive of non specific enteritis and gastritis. There's small ascites present and evidence of peritoneal/omental calcification from treated dz. Allergies Allergy/AdvReac Type Severity Reaction Status Date / Time castor oil Allergy Severe ANAPHYLAXIS Verified 02/13/20 12:13 paclitaxel Allergy Severe ANAPHYLAXIS Verified 02/13/20 12:13 Ethanol Allergy Severe ANAPHYLAXIS Uncoded 02/13/20 12:13 Home Medications Medication Instructions Recorded Confirmed Type aspirin [Aspir-81] 81 mg PO DAILY 02/14/20 02/14/20 History atenolol 25 mg PO DAILY 02/14/20 02/14/20 History esomeprazole magnesium 20 mg PO DAILY 02/14/20 02/14/20 History furosemide [Lasix] 40 mg PO DAILY 02/14/20 02/14/20 History levocetirizine 5 mg PO PM 02/14/20 02/14/20 History ondansetron 8 mg PO Q8H PRN 02/14/20 02/14/20 History prochlorperazine maleate 10 mg PO Q6H PRN 02/14/20 02/14/20 History [Compazine] Patient History Medical History CKD (chronic kidney disease), stage III HTN (hypertension) Ovarian cancer Surgical History History of colonoscopy History of exploratory laparotomy History of total abdominal hysterectomy and bilateral salpingo-oophorectomy Family History Grandmother Cancer Father Hypertension Mother Stroke Social History Smoking Status: Current every day smoker Tobacco Type: Cigarettes Second Hand Exposure: No; Do You Dip or Chew Tobacco: No; Tobacco Cessation Education Requested by Patient: No Hx Alcohol Use: No Hx Substance Use: No Preferred Language: [place]aur[place] Communication Ability: Effective Photographic Artist Required: No Beliefs That Will Affect Care: None Current Living Situation: Spouse Other Information That Helps Us Care for You: No Feels Safe at Home: Yes Safety Concerns: Feels Safe At This Time Assistive Devices: Glasses and Walker Review of Systems Review of Systems: All systems reviewed & are unremarkable except as noted in HPI & below Physical Exam Constitutional: WD/WN, vitals as above well groomed, cooperative and comfortable Eyes: PERRL, conjunctivae normal, anicteric sclerae ENMT: external ear and nose normal, oropharynx normal Respiratory: normal respiratory effort, lungs clear to auscultation Cardiovascular: RRR, no murmur, no edema Gastrointestinal (Abdomen): Percussion/Palpation: + abdomen tender (diffuse) and abdomen soft Skin: no rashes, warm and dry no jaundice Psychiatric: A+Ox3, euthymic affect Lymphatic: no lymphedema Results & Data ([facility]) Vital Signs (Past 12 Hours) Vital Signs Temp Pulse Pulse Resp BP Pulse Ox 02/15/20 07:00 75 02/15/20 06:27 36.7 C 90 17 120/76 93 02/15/20 03:16 37.1 C 80 17 127/85 93 02/14/20 23:11 37.1 C 120 H 17 138/85 92
[2020-02-15] MEDS: ONDANSETRON INJ 2 MG/ML 2 ML VIAL IV PRN (10:47)
--- NOTE | 2020-02-15 11:18 | Ultrasound Report ---
US abdomen limited CLINICAL HISTORY: Ascites COMPARISON STUDY: CT scan dated 02/14/2020 FINDINGS: A four-quadrant survey of the abdomen was performed. There is trace ascites. IMPRESSION: Trace ascites. ACT 112: Negative or not required by law. Electronically signed by: Hunter Lacy M.D. 02/15/2020 11:17 AM
[2020-02-15 12:26] LABS: BUN Creatinine Ratio 15.7 (10-20); Creatinine Clr Calc Pharmacy 42.7 ml/min; Est GFR (African American) 44.4; Est GFR (Non-African American) 38.3; Magnesium 2.1 mg/dl (1.8-2.4); Potassium 3.4 mmol/L (3.5-5.1)
--- NOTE | 2020-02-15 18:54 | Magnetic Resonance Report ---
MR MRCP HISTORY: Vomiting. evaluation for cbd stones TECHNIQUE: MRCP of the abdomen was performed without contrast according to standard departmental prot ocol. COMPARISON STUDY: Abdominal ultrasound 02/15/2020. Abdomen and pelvis CT 02/14/2020. FINDINGS: Small amount of ascites. Diffusely thickened small bowel which is fluid-filled and mildly d istended measuring up to 4.2 cm in diameter. This is similar to the prior study. T2 hyperintense lesi ons seen within the liver and kidneys likely represent cysts. No hydronephrosis. Stable 2 cm subcapsu lar cystic focus abutting the spleen. No gallbladder wall thickening. No retroperitoneal lymphadenopa thy. The main portal vein appears patent. The distal main pancreatic duct is normal in course and mellissa iber. The proximal end pancreatic carcinoma visualized. Possible small filling defect seen within the distal common bile duct best seen on image 58 of series 6. This measures 4 mm and could represent a small stone. However, there is no significant bile duct dilatation. IMPRESSION: 1. Possible 4 mm filling defect seen within the distal common bile duct. However, there is no upstrea m dilatation. Consider ERCP to exclude the possibility of a nonobstructing distal common bile duct st one. 2. Small amount of ascites, unchanged. 3. Diffusely thickened small bowel which is fluid-filled and mildly distended. This is similar to the prior study and favors a nonspecific enteritis. A partial bowel obstruction cannot be excluded. 4. No gallbladder wall thickening. No gallstones. ACT 112: Negative or not required by law. Electronically signed by: Celestine Marshall M.D. 02/15/2020 6:53 PM
--- NOTE | 2020-02-15 21:38 | Hospitalist Progress Note ---
Date of Service February 15, 2020 Assessment & Plan (1) Abdominal pain with vomiting: Presented with abdominal pain, nausea, vomiting. History of ovarian Ca with peritoneal mets, undergoing chemotherapy. History of malignant ascites, s/p paracentesis 02/13/20 (cytology + for ovarian Ca). CT abd & pelvis did not show any bowel obstruction. No significant ascites on current imaging per CT or US. ? cholelithiasis . ? secondary to chemo. GI consulted. Continue anti-emetics. (2) Hypokalemia: Serum K at time of admission 3.1. Received replacement. K this morning = 3.5. Follow. (3) Hypomagnesemia: Mg at time of admission 0.6. Received replacement. Mg this morning = 1.9. Follow. (4) Hypocalcemia: Calcium at time of admission 7.1 with albumin of 2.5. Corrected calcium 8.3. Check ionized calcium with morning labs. . (5) HTN (hypertension): Hemodynamically stable. Continue atenolol. (6) CKD (chronic kidney disease), stage III: Serum creatinine at time of admission 1.37. Creatinine today = 1.39. Maintain adequate hydration. Follow. (7) COVID-19 ruled out: SARS-CoV-2 Ag + PCR negative. 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 (9) DVT prophylaxis: SQ enoxaparin. (10) Discharge planning issues: Anticipated discharge to home. Internal Medicine follow-up with Dr. Sifuentes. Hematology / Medical Oncology follow-up with Dr. Bakari Cruz. Admission and Anticipated Discharge Date Admission Date: February 14, 2020 Subjective Recheck for GI symptoms and electrolyte abnormalities. Patient seen in their room around 1210. Ongoing nausea and vomiting this morning. Received Emend without much benefit. No coffee grounds or gross blood. Mild diffuse abdominal discomfort. No diarrhea, melena, hematochezia. No fever. Review of Systems: Constitutional- as noted above. Cardiac- no chest pain. Pulmonary- no cough or SOB. GI- as noted above. - no urinary symptoms. Otherwise, as noted above. Physical Exam Constitutional: no acute distress Eyes: + anicteric sclerae Respiratory: normal respiratory effort, lungs clear to auscultation Cardiovascular: Rate/Rhythm: regular rate and regular rhythm Vessels: no JVD Extremities: no calf tenderness and no edema Gastrointestinal (Abdomen): Inspection/Auscultation: abdomen not distended Percussion/Palpation: + abdomen tender (diffuse, mild, no rebound) and abdomen soft Musculoskeletal: Extremities: no cyanosis Skin: no rashes, warm and dry Psychiatric: Orientation: alert and oriented x 3 Results & Data Results & Data ([facility]) Vital Signs (Past 12 Hours) Vital Signs Temp Pulse Pulse Resp BP Pulse Ox 02/15/20 18:53 36.5 C 78 19 117/78 91 02/15/20 16:00 76 02/15/20 15:05 36.7 C 115 H 22 112/82 93 02/15/20 12:25 36.5 C 72 19 107/72 93 Laboratory Results Laboratory Results - last 24 hr 02/14/20 02/15/20 02/15/20 16:00 00:53 04:31 WBC 12.37 H RBC 3.00 L Hgb 9.7 L Hct 29.7 L MCV 99.0 MCH 32.3 MCHC 32.7 RDW Std Deviation 77.4 H RDW Coeff of Ross 21.8 H Plt Count 179 MPV 9.0 Immature Gran % (Auto) 0.8 Neut % (Auto) 73.8 Lymph % (Auto) 11.2 [place] % (Auto) 13.9 Eos % (Auto) 0.1 Baso % (Auto) 0.2 Neut # (Auto) 9.14 H Lymph # (Auto) 1.38 [place] # (Auto) 1.72 H Eos # (Auto) 0.01 Baso # (Auto) 0.02 Immature Gran # (Auto) 0.10 H Absolute Nucleated RBC 0.09 H Nucleated RBC % (auto) 0.8 Hypersegmented Neuts 1+ 1+ Anisocytosis Present Sodium 137 Potassium 3.5 Chloride 101 Carbon Dioxide 29 Anion Gap 7.0 BUN 25 H Creatinine 1.29 H Est Cr Clr Drug Dosing 47.2 Est GFR ( Amer) 50.3 Est GFR (Non-Af Amer) 43.4 BUN/Creatinine Ratio 19.2 Glucose 128 H Estimat Average Glucose Hemoglobin A1c Calcium 6.5 L Magnesium 1.7 L Total Bilirubin AST ALT Alkaline Phosphatase Total Protein Albumin Globulin Albumin/Globulin Ratio Specimen Hemolysis 02/15/20 02/15/20 02/15/20 04:31 04:31 04:31 WBC RBC Hgb Hct MCV MCH MCHC RDW Std Deviation RDW Coeff of Ross Plt Count MPV Immature Gran % (Auto) Neut % (Auto) Lymph % (Auto) [place] % (Auto) Eos % (Auto) Baso % (Auto) Neut # (Auto) Lymph # (Auto) [place] # (Auto) Eos # (Auto) Baso # (Auto) Immature Gran # (Auto) Absolute Nucleated RBC Nucleated RBC % (auto) Hypersegmented Neuts Anisocytosis Sodium 136 Cancelled Potassium 3.5 Cancelled Chloride 101 Cancelled Carbon Dioxide 30 Cancelled Anion Gap 5.0 Cancelled BUN 24 H Cancelled Creatinine 1.28 H Cancelled Est Cr Clr Drug Dosing 47.5 Cancelled Est GFR ( Amer) 50.8 Cancelled Est GFR (Non-Af Amer) 43.8 Cancelled BUN/Creatinine Ratio 18.8 Cancelled Glucose 109 H Cancelled Estimat Average Glucose 120 Hemoglobin A1c 5.8 H Calcium 6.6 L Cancelled Magnesium 2.0 Cancelled Total Bilirubin 0.9 AST 77 H ALT 49 Alkaline Phosphatase 134 H Total Protein 6.0 L Albumin 2.3 L Globulin 3.7 Albumin/Globulin Ratio 0.6 L Specimen Hemolysis 02/15/20 02/15/20 08:10 11:48 WBC RBC Hgb Hct MCV MCH MCHC RDW Std Deviation RDW Coeff of Ross Plt Count MPV Immature Gran % (Auto) Neut % (Auto) Lymph % (Auto) [place] % (Auto) Eos % (Auto) Baso % (Auto) Neut # (Auto) Lymph # (Auto) [place] # (Auto) Eos # (Auto) Baso # (Auto) Immature Gran # (Auto) Absolute Nucleated RBC Nucleated RBC % (auto) Hypersegmented Neuts Anisocytosis Sodium 139 138 Potassium 3.5 3.4 L Chloride 101 101 Carbon Dioxide 30 31 Anion Gap 8.0 6.0 BUN 24 H 23 H Creatinine 1.39 H 1.43 H Est Cr Clr Drug Dosing 44.0 42.7 Est GFR ( Amer) 46.0 44.4 Est GFR (Non-Af Amer) 39.7 38.3 BUN/Creatinine Ratio 17.1 15.7 Glucose 109 H 109 H Estimat Average Glucose Hemoglobin A1c Calcium 7.2 L 7.0 L Magnesium 1.9 2.1 Total Bilirubin AST ALT Alkaline Phosphatase Total Protein Albumin Globulin Albumin/Globulin Ratio Specimen Hemolysis
[2020-02-15] MEDS: D5W AND 1/2NSS + 20MEQ KCL 20 MEQ/1,000 ML BAG IV SCH (22:09)
[2020-02-16] MEDS: PIPERACILLIN/TAZOBACTAM 3.375 GM in DEXTROSE 5% 100 ML IV SCH ×3 (04:05→23:39)
[2020-02-16 05:46] LABS: Basophils # (auto) 0.01 K/uL (0-0.2); Basophils % (auto) 0.1 %; Eosinophils # (auto) 0.05 K/uL (0-0.5); Eosinophils % (auto) 0.5 %; Hematocrit (blood only) 27.9 % (37-47); Hemoglobin 9.2 g/dL (12.0-16.0); Immature Granulocytes # (auto) 0.13 K/uL (0.00-0.02); Immature Granulocytes % (auto) 1.3 %; Lymphocytes # (auto) 1.35 K/uL (1.2-3.4); Lymphocytes % (auto) 13.1 %; Mean Corpuscular Hemoglobin 33.1 pg (25-34); Mean Corpuscular Volume 100.4 fL (80-100); Mean Platelet Volume 9.8 fL (7.4-10.4); Monocytes # (auto) 1.48 K/uL (0.11-0.59); Monocytes % (auto) 14.4 %; Neutrophils # (auto) 7.29 K/uL (1.4-6.5); Neutrophils % (auto) 70.6 %; Nucleated RBC # (auto) 0.09 K/uL (0-0); Nucleated RBC % (auto) 0.9 %; Platelet Count 192 K/uL (130-400); RDW Coefficient of Variation 21.8 % (11.5-14.5); RDW Standard Deviation 76.2 fL (36.4-46.3); Red Blood Count 2.78 M/uL (4.2-5.4); White Blood Count 10.31 K/uL (4.8-10.8)
[2020-02-16] MEDS: D5W AND 1/2NSS + 20MEQ KCL 20 MEQ/1,000 ML BAG IV SCH (06:08)
[2020-02-16 06:12] LABS: Albumin Level 2.1 gm/dl (3.4-5.0); BUN Creatinine Ratio 15.9 (10-20); Bilirubin Direct 0.4 mg/dl (0-0.2); Calcium 6.4 mg/dl (8.5-10.1); Creatinine Clr Calc Pharmacy 46.6 ml/min; Est GFR (African American) 49.4; Est GFR (Non-African American) 42.6; Magnesium 1.9 mg/dl (1.8-2.4); Potassium 3.3 mmol/L (3.5-5.1)
[2020-02-16 06:15] LABS: Albumin Globulin Ratio 0.6 (0.9-2); Bilirubin,Total 0.9 mg/dl (0.2-1); Globulin 3.7 gm/dl (2.5-4.0); Total Protein 5.8 gm/dl (6.4-8.2)
[2020-02-16 06:23] LABS: Anisocytosis Present
--- NOTE | 2020-02-16 08:08 | Anesthesiology Consultation ---
Date of Service February 16, 2020 Assessment & Plan (1) Encounter for pre-operative examination: Chart Review Chart Review: Acceptable Risk for Surgery History Surgery Operation Date: 02/16/20 11:30 Proposed Procedures p Endoscopic Ultrasonography Upper, Possible Endoscopic Retrograde Cholangiopancreato - Karishma Carballo DO Height/Weight Height: 5 ft 7 in Weight: 80 kg Allergies Allergy/AdvReac Type Severity Reaction Status Date / Time castor oil Allergy Severe ANAPHYLAXIS Verified 02/13/20 12:13 paclitaxel Allergy Severe ANAPHYLAXIS Verified 02/13/20 12:13 Ethanol Allergy Severe ANAPHYLAXIS Uncoded 02/13/20 12:13 Medications Home Medications Medication Instructions Recorded Confirmed Last Taken aspirin [Aspir-81] 81 mg PO DAILY 02/14/20 02/14/20 Unknown atenolol 25 mg PO DAILY 02/14/20 02/14/20 Unknown esomeprazole magnesium 20 mg PO DAILY 02/14/20 02/14/20 Unknown furosemide [Lasix] 40 mg PO DAILY 02/14/20 02/14/20 Unknown levocetirizine 5 mg PO PM 02/14/20 02/14/20 Unknown ondansetron 8 mg PO Q8H PRN 02/14/20 02/14/20 Unknown prochlorperazine maleate 10 mg PO Q6H PRN 02/14/20 02/14/20 Unknown [Compazine] Active Medications Generic Name Dose Route Start Last Admin Trade Name Freq PRN Reason Stop Dose Admin Aspirin 81 mg 02/15/20 09:00 02/15/20 09:18 Aspirin 81 Mg Ectab PO 03/16/20 08:59 81 mg DAILY AILEEN Administration Atenolol 25 mg 02/15/20 09:00 02/15/20 09:18 Atenolol 25 Mg Tablet PO 03/16/20 08:59 25 mg DAILY AILEEN Administration Enoxaparin Sodium 40 mg 02/15/20 09:00 02/15/20 09:19 Enoxaparin Inj 40 Mg/0.4 Ml Syr SQ 03/16/20 08:59 40 mg Q24H AILEEN Administration Promethazine HCl 25 mg/ Sodium 51 mls @ 204 mls/hr 02/14/20 20:19 02/15/20 13:25 Chloride IV 03/15/20 20:18 Infused Q6H PRN Infusion Nausea And Vomiting Piperacillin Sod/Tazobactam 115 mls @ 28.75 mls/hr 02/15/20 04:00 02/16/20 04:05 Sod 3.375 gm/ Dextrose IV 02/25/20 03:59 28.8 mls/hr Q8H AILEEN Administration Protocol Potassium Chloride/Dextrose/Sod Cl 20 meq in 1,000 mls @ 125 mls/hr 02/15/20 22:00 02/16/20 06:08 D5w And 1/2nss + 20meq Kcl IV 03/16/20 21:44 125 mls/hr .Q8H AILEEN Administration Miscellaneous 1 ea 02/15/20 08:59 02/15/20 09:17 Remove Nicoderm Patch N/A 03/16/20 08:58 Not Given [id number] AILEEN Miscellaneous 1 ea 02/15/20 00:00 02/15/20 23:43 Levocetirizine~Order Awaiting Action N/A 03/16/20 00:00 Not Given QS AILEEN Nicotine 21 mg 02/15/20 09:00 02/15/20 09:18 Nicotine 21 Mg/24 Hr Tdsy TD 03/16/20 08:59 21 mg QAM AILEEN Administration Ondansetron HCl 4 mg 02/14/20 21:11 02/15/20 10:47 Ondansetron Inj 2 Mg/Ml 2 Ml Vial IV 03/15/20 21:10 4 mg Q6H PRN Administration Nausea Pantoprazole Sodium 40 mg 02/15/20 09:00 02/15/20 09:18 Pantoprazole 40 Mg Tab PO 03/16/20 08:59 40 mg DAILY AILEEN Administration Past Medical History Medical History (Updated 02/16/20 @ 08:08 by Connor Duggan MD) Anemia CKD (chronic kidney disease), stage III HTN (hypertension) 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 Ovarian cancer Past Family History Family History Grandmother Cancer Father Hypertension Mother Stroke Past Surgical History Surgical History History of colonoscopy History of exploratory laparotomy History of total abdominal hysterectomy and bilateral salpingo-oophorectomy Social History Smoking Status: Current every day smoker tobacco type: cigarettes Do You Dip or Chew Tobacco: No Hx Alcohol Use: No Hx Substance Use: No Physical Exam Vital Signs Last Vital Signs Temp 36.5 C 02/16/20 07:00 Pulse 110 H 02/16/20 07:00 Resp 19 02/16/20 07:00 BP 107/71 02/16/20 07:00 Pulse Ox 92 02/16/20 07:00 Testing Laboratory Results 02/16/20 05:32 02/16/20 05:32 Hemoglobin A1c 5.8 % (4.5-5.6) H 02/15/20 04:31 Urine Color Dark Yellow 02/14/20 22:45 Urine Appearance Clear (Clear) 02/14/20 22:45 Urine pH 5.0 (4.5-7.5) 02/14/20 22:45 Ur Specific [place] > 1.045 (1.000-1.030) H 02/14/20 22:45 Urine Protein 2+ (Negative) H 02/14/20 22:45 Urine Glucose (UA) Negative (Negative) 02/14/20 22:45 Urine Ketones Negative (Negative) 02/14/20 22:45 Urine Nitrite Negative (Negative) 02/14/20 22:45 Ur Leukocyte Esterase Negative (Negative) 02/14/20 22:45 Urine WBC (Auto) 1-5 /hpf (0-5) 02/14/20 22:45 Urine RBC (Auto) 0-4 /hpf (0-4) 02/14/20 22:45 U Hyaline Cast (Auto) 1-5 /lpf (0-5) 02/14/20 22:45 U Epithel Cells (Auto) >30 /lpf (0-5) H 02/14/20 22:45 Urine Bacteria (Auto) Negative (Negative) 02/14/20 22:45 02/14/20 20:07 Aerobic Blood Culture - Preliminary Blood No growth in Aerobic bottle after 24 hours. Anaerobic Blood Culture - Final 02/14/20 18:06 Aerobic Blood Culture - Preliminary Blood No growth in Aerobic bottle after 24 hours. Anaerobic Blood Culture - Preliminary No growth in Anaerobic bottle after 24 hours. Electrocardiogram Date: 02/14/20 Findings: + NSR @ (86 wih PAC's) and + NSST changes
[2020-02-16] MEDS: D5W IV SCH ×3 (08:42→23:39)
[2020-02-16] MEDS: [UNRECOGNIZED DRUG - OTHER] IV SCH ×3 (08:42→23:39)
[2020-02-16] MEDS: POTASSIUM CHLORIDE IV SCH ×3 (08:42→23:39)
[2020-02-16] MEDS: CALCIUM GLUCONATE IV SCH ×3 (08:42→23:39)
[2020-02-16] MEDS: POTASSIUM CHLORIDE / WTR 10 MEQ/100 ML PLCT IV SCH ×2 (09:04→10:12)
[2020-02-16] MEDS: ATENOLOL 25 MG TABLET PO SCH (10:40)
[2020-02-16] MEDS: ASPIRIN 81 MG ECTAB PO SCH ×2 (10:40→10:44)
[2020-02-16] MEDS: PANTOprazole 40 MG TAB PO SCH (10:40)
[2020-02-16] MEDS: NICOTINE 21 MG/24 HR TDSY TD SCH (10:40)
[2020-02-16] MEDS ORDERED: DEXAMETHASONE SOD INJ 4 MG/ML VIAL ONE (11:47)
[2020-02-16] MEDS ORDERED: fentaNYL citrate 100 MCG/2 ML VIAL ONE (11:47)
[2020-02-16] MEDS ORDERED: ONDANSETRON INJ 2 MG/ML 2 ML VIAL ONE (11:47)
[2020-02-16] MEDS ORDERED: ROCURONIUM BROMIDE 10 MG/ML 5 ML VIAL IV ONE (11:47)
[2020-02-16] MEDS ORDERED: PROPOFOL IV EMULSION 10 MG/ML 20 ML VIAL IV ONE (11:47)
[2020-02-16] MEDS ORDERED: LIDOCAINE HCL 2% 2 ML VIAL/AMP(20MG/ML) INFIL ONE (11:47)
[2020-02-16] MEDS ORDERED: INDOMETHACIN 50 MG SUPP PR ONE (11:50)
[2020-02-16] MEDS ORDERED: IOVERSOL 50ml IV ONE (11:50)
--- NOTE | 2020-02-16 11:50 | History & Physical Bridge Note ---
Date of Service February 16, 2020 History & Physical Bridge Note I have examined the patient, reviewed the History & Physical and in the interval since the performance of the History & Physical I have noted the following changes of clinical significance. The patient has persistent nausea and vomiting despite use of multiple antiemetics. MRCP does show a possible filling defect the distal common bile duct. Given this I think the next best approach would be upper endoscopy and endoscopic ultrasound to look for evidence of peptic ulcer disease and determine if she truly has a stone in the common bile duct. If a stone is found we would then proceed with ERCP. We have discussed the risks of the procedures to include bleeding, infection, perforation, pancreatitis and failed biliary cannulation. MR MRCP HISTORY: Vomiting. evaluation for cbd stones TECHNIQUE: MRCP of the abdomen was performed without contrast according to standard departmental protocol. COMPARISON STUDY: Abdominal ultrasound 02/15/2020. Abdomen and pelvis CT 02/14/2020. FINDINGS: Small amount of ascites. Diffusely thickened small bowel which is fluid-filled and mildly distended measuring up to 4.2 cm in diameter. This is similar to the prior study. T2 hyperintense lesions seen within the liver and kidneys likely represent cysts. No hydronephrosis. Stable 2 cm subcapsular cystic focus abutting the spleen. No gallbladder wall thickening. No retroperitoneal lymphadenopathy. The main portal vein appears patent. The distal main pancreatic duct is normal in course and caliber. The proximal end pancreatic carcinoma visualized. Possible small filling defect seen within the distal common bile duct best seen on image 58 of series 6. This measures 4 mm and could represent a small stone. However, there is no significant bile duct dilatation. IMPRESSION: 1. Possible 4 mm filling defect seen within the distal common bile duct. However, there is no upstream dilatation. Consider ERCP to exclude the possibility of a nonobstructing distal common bile duct stone. 2. Small amount of ascites, unchanged. 3. Diffusely thickened small bowel which is fluid-filled and mildly distended. This is similar to the prior study and favors a nonspecific enteritis. A partial bowel obstruction cannot be excluded. 4. No gallbladder wall thickening. No gallstones
[2020-02-16] MEDS ORDERED: ONDANSETRON INJ 2 MG/ML 2 ML VIAL IV PRN (11:53)
[2020-02-16] MEDS ORDERED: ATROPINE SULFATE 0.1 MG/ML 10ML SYR IV PRN (11:53)
[2020-02-16] MEDS ORDERED: PROMETHAZINE HCL 6.25 MG in SODIUM CHLORIDE 0.9% 50 ML IV PRN (11:53)
[2020-02-16] MEDS ORDERED: fentaNYL citrate 100 MCG/2 ML VIAL IV PRN (11:53)
[2020-02-16] MEDS ORDERED: CALCIUM CHLORIDE 10% 10 ML SYR IV ONE (12:28)
--- NOTE | 2020-02-16 13:47 | GI REPORT ---
Patient Name: Krystina Chase Procedure Date: 02/16/2020 11:48 AM Date of : 1955 Admit Type: Inpatient Age: 64 Gender: Female Attending MD: Karishma Carballo DO Procedure: Upper GI endoscopy Providers: Karishma Carballo DO Referring MD: Bakari Cruz Indications: Epigastric abdominal pain, Nausea with vomiting Medicines: Monitored Anesthesia Care Complications: No immediate complications. Estimated blood loss: Minimal. Estimated Blood Loss: Estimated blood loss was minimal. Procedure: Pre-Anesthesia Assessment: - Prior to the procedure, a History and Physical was performed, and patient medications, allergies and sensitivities were reviewed. The patient's tolerance of previous anesthesia was reviewed. - The risks and benefits of the procedure and the sedation options and risks were discussed with the patient. All questions were answered and informed consent was obtained. - Patient identification and proposed procedure were verified prior to the procedure by the physician, the nurse and the tank officer. The procedure was verified in the procedure room. - Pre-procedure physical examination revealed no contraindications to sedation. - ASA Grade Assessment: III - A patient with severe systemic disease. - After reviewing the risks and benefits, the patient was deemed in satisfactory condition to undergo the procedure. - The anesthesia plan was to use general anesthesia. - Immediately prior to administration of medications, the patient was re-assessed for adequacy to receive sedatives. - The heart rate, respiratory rate, oxygen saturations, blood pressure, adequacy of pulmonary ventilation, and response to care were monitored throughout the procedure. - The physical status of the patient was re-assessed after the procedure. After obtaining informed consent, the endoscope was passed under direct vision. Throughout the procedure, the patient's blood pressure, pulse, and oxygen saturations were monitored continuously. The Endoscope was introduced through the mouth, and advanced to the third part of duodenum. The upper GI endoscopy was accomplished without difficulty. The patient tolerated the procedure well. Findings: LA Grade A (one or more mucosal breaks less than 5 mm, not extending between tops of 2 mucosal folds) esophagitis with no bleeding was found in the lower third of the esophagus. Biopsies were taken with a cold forceps for histology. Estimated blood loss was minimal. The Z-line was regular and was found 37 cm from the incisors. Diffuse mild inflammation characterized by congestion (edema), erythema and granularity was found in the entire examined stomach. Biopsies were taken with a cold forceps for histology. The pathology specimen was placed into Bottle A. Estimated blood loss was minimal. The examined duodenum was normal. Impression: - LA Grade A reflux esophagitis. Biopsied. - Z-line regular, 37 cm from the incisors. - Gastritis. Biopsied. - Normal examined duodenum. Recommendation: - Perform an upper endoscopic ultrasound (UEUS) today. - Await pathology results. Karishma Carballo D.O. Karishma Carballo, 02/16/2020 1:47:13 PM This report has been signed electronically. Note Initiated On: 02/16/2020 11:48 AM Number of Addenda: 0 I attest to the content of the Intraoperative Record and orders documented therein, exceptions below {[id number]}
--- NOTE | 2020-02-16 13:53 | GI REPORT ---
Patient Name: Krystina Chase Procedure Date: 02/16/2020 11:49 AM Date of : 1955 Admit Type: Inpatient Age: 64 Gender: Female Attending MD: Karishma Carballo DO Procedure: Upper EUS Providers: Karishma Carballo DO Referring MD: Bakari Cruz Indications: Choledocholithiasis on MRCP, Epigastric abdominal pain, Abdominal pain in the right upper quadrant Medicines: General Anesthesia Complications: No immediate complications. Estimated blood loss: Minimal. Estimated Blood Loss: Estimated blood loss was minimal. Procedure: Pre-Anesthesia Assessment: - Prior to the procedure, a History and Physical was performed, and patient medications, allergies and sensitivities were reviewed. The patient's tolerance of previous anesthesia was reviewed. - The risks and benefits of the procedure and the sedation options and risks were discussed with the patient. All questions were answered and informed consent was obtained. - Patient identification and proposed procedure were verified prior to the procedure by the physician, the nurse and the pulpwood cutter. The procedure was verified in the procedure room. - Pre-procedure physical examination revealed no contraindications to sedation. - ASA Grade Assessment: III - A patient with severe systemic disease. - After reviewing the risks and benefits, the patient was deemed in satisfactory condition to undergo the procedure. - The anesthesia plan was to use general anesthesia. - Immediately prior to administration of medications, the patient was re-assessed for adequacy to receive sedatives. - The heart rate, respiratory rate, oxygen saturations, blood pressure, adequacy of pulmonary ventilation, and response to care were monitored throughout the procedure. - The physical status of the patient was re-assessed after the procedure. After obtaining informed consent, the endoscope was passed under direct vision. Throughout the procedure, the patient's blood pressure, pulse, and oxygen saturations were monitored continuously. The Endosonoscope was introduced through the mouth, and advanced to the second part of duodenum. The upper EUS was accomplished without difficulty. The patient tolerated the procedure well. Findings: ENDOSONOGRAPHIC FINDING: : Periampullary diverticulum noted, this made visualization of the distal duct difficult There was mild dilation in the common bile duct which measured up to 7-8 mm. One stone and sludge was visualized endosonographically in the common bile duct. It was hyperechoic. Moderate hyperechoic material consistent with sludge was visualized endosonographically in the gallbladder body. There was no sign of significant endosonographic abnormality in the left lobe of the liver. Homogeneous parenchyma was identified. There was no sign of significant endosonographic abnormality in the entire pancreas. The pancreas was well visualized, no masses, no cysts, no calcifications. No lymph nodes were seen during endosonographic examination in the gastrohepatic ligament (level 18), in the celiac region (level 20), in the perigastric region, in the peripancreatic region and in the senthil hepatis region. A moderate amount of fluid, visualized as a hypoechoic feature, was found in the peritoneal cavity. Impression: - There was dilation in the common bile duct which measured up to 7-8 mm. - One stone and some sludge was visualized endosonographically in the common bile duct. - Hyperechoic material consistent with sludge was visualized endosonographically in the gallbladder body. - There was no evidence of significant pathology in the left lobe of the liver. - There was no sign of significant pathology in the entire pancreas. - Ascites (consistnet with known malignant ascites) was found on endosonographic examination of the peritoneal cavity. - No specimens collected. Recommendation: - Perform an ERCP today. Karishma Carballo D.O. Karishma Carballo, 02/16/2020 1:53:24 PM This report has been signed electronically. Note Initiated On: 02/16/2020 11:49 AM Number of Addenda: 0 I attest to the content of the Intraoperative Record and orders documented therein, exceptions below {[id number]}
--- NOTE | 2020-02-16 14:00 | GI REPORT ---
Patient Name: Krystina Chase Procedure Date: 02/16/2020 11:51 AM Date of : 1955 Admit Type: Inpatient Age: 64 Gender: Female Attending MD: Karishma Carballo DO Procedure: ERCP Providers: Karishma Carballo DO Referring MD: Bakari Cruz Indications: Abdominal pain of suspected biliary origin, Abnormal MRCP, Bile duct stone on Ultrasound, Elevated liver enzymes Medicines: General Anesthesia Complications: No immediate complications. Estimated blood loss: Minimal. Estimated Blood Loss: Estimated blood loss was minimal. Procedure: Pre-Anesthesia Assessment: - Prior to the procedure, a History and Physical was performed, and patient medications, allergies and sensitivities were reviewed. The patient's tolerance of previous anesthesia was reviewed. - The risks and benefits of the procedure and the sedation options and risks were discussed with the patient. All questions were answered and informed consent was obtained. - Patient identification and proposed procedure were verified prior to the procedure by the physician, the nurse and the machine heel seat fitter. The procedure was verified in the pre-procedure area in the procedure room. - Pre-procedure physical examination revealed no contraindications to sedation. - ASA Grade Assessment: III - A patient with severe systemic disease. - After reviewing the risks and benefits, the patient was deemed in satisfactory condition to undergo the procedure. - The anesthesia plan was to use general anesthesia. - Immediately prior to administration of medications, the patient was re-assessed for adequacy to receive sedatives. - The heart rate, respiratory rate, oxygen saturations, blood pressure, adequacy of pulmonary ventilation, and response to care were monitored throughout the procedure. - The physical status of the patient was re-assessed after the procedure. After obtaining informed consent, the scope was passed under direct vision. Throughout the procedure, the patient's blood pressure, pulse, and oxygen saturations were monitored continuously. The Scope was introduced through the mouth, and advanced to the duodenum and to cannulate the ventral pancreatic duct. The patient tolerated the procedure well. The ERCP was technically difficult and complex due to challenging cannulation. Successful completion of the procedure was aided by performing the maneuvers documented (below) in this report. Findings: The military police officer film was normal. The esophagus was successfully intubated under direct vision without detailed examination of the pharynx, larynx, and associated structures, and upper GI tract. The upper GI tract was grossly normal. The major papilla was adjacent to a diverticulum. The major papilla was congested. Multiple attempts to cannulated the biliary tree were made with an Omni 35 and 0.035 in angled Acrobat 2 guidewire. This was changed to a [employer] Rx 39 with a 0.25 in guidewire resulting in \\deep cannulation of the ventral pancreatic duct was accomplished with the Dreamtome sphincterotome and 0.025 in guidewire. The guidewire was left in place to aid in biliary cannulation with a "double wire" technique and later place a prophylactic stent (no contrast was injected into the PD). Despite numerous attempts using multiple wire combinations \\the bile duct could not be cannulated. One 5 Fr by 7 cm pancreatic stent with a 3/4 external pigtail and no internal flaps was placed 7 cm into the ventral pancreatic duct. Clear fluid flowed through the stent. The stent was in good position. The endoscope was withdrawn from the patient. Indomethacin 100 mg was given via suppository to decrease the risk of post-ERCP pancreatitis (PEP). Further attempts at selective biliary cannulation were discontinued. Impression: - The major papilla was adjacent to a diverticulum. - The major papilla appeared congested. - One pancreatic stent was placed into the ventral pancreatic duct. - Indomethacin given to decrease risk of post-ERCP pancreatitis. Recommendation: - [facility]. - Clear liquid diet today. - Refer to [facility]iary [facility] for a repeat attempt at ERCP. Karishma Carballo D.O. Karishma Carballo, 02/16/2020 2:00:22 PM This report has been signed electronically. Note Initiated On: 02/16/2020 11:51 AM Number of Addenda: 0 I attest to the content of the Intraoperative Record and orders documented therein, exceptions below {[id number]}
--- NOTE | 2020-02-16 14:06 | Communication Note ---
Date of Service: February 16, 2020 The patient underwent upper endoscopy endoscopic ultrasound and ERCP this afternoon. 90s were notable for mild gastritis and distal esophagitis. The e ndoscopic ultrasound showed mild dilation of the common bile duct to 7 or 8 mm. small stones and a moderate amount of sludge material was seen within the gallbladder. In addition sludge in 1 stone was seen within the distal common bile duct. A lengthy ERCP was performed however we were not able to access the common bile duct. Therefore the procedure was discontinued. We did place a prophylactic pancreatic stent. Recommendations Patient may have clear liquid Would give LR at 100 mL/h per night Referral to a tertiary center for repeat attempt at ERCP
--- NOTE | 2020-02-16 14:14 | Anesthesiology Progress Note ---
Date of Service February 16, 2020 Anesthesia Post Procedure Vital Signs Vital Signs: Temp Pulse Pulse Pulse Resp BP Pulse Ox 02/16/20 14:05 112 H 16 128/70 98 02/16/20 13:55 94 H 16 123/92 98 02/16/20 13:48 36.4 C L 103 H 16 120/93 98 02/16/20 10:49 36.5 C 104 H 17 117/79 96 02/16/20 08:17 107 H 02/16/20 07:00 36.5 C 110 H 19 107/71 92 02/16/20 04:34 36.6 C 76 16 97/65 L 90 02/15/20 23:06 37.1 C 74 18 100/62 91 02/15/20 18:53 36.5 C 78 19 117/78 91 02/15/20 16:00 76 02/15/20 15:05 36.7 C 115 H 22 112/82 93 Transfer of Care Handoff Completed per policy Notes Mental Status: alert / awake / arousable Patient Amnestic to Procedure: Yes Nausea / Vomiting: adequately controlled Pain: adequately controlled Airway Patency, RR, SpO2: stable & adequate BP & HR: stable & adequate Hydration State: stable & adequate Anesthetic Complications: no major complications apparent
--- NOTE | 2020-02-16 14:24 | Post Operative Brief Note ---
Immediate Post Op Note v1 Date of Surgery February 16, 2020 Pre & Post Diagnosis Operation Date: 02/16/20 11:30 Pre-Op Diagnosis: abdominal pain, nausea, vomiting Post-Op Diagnosis: abdominal pain, nausea, vomiting I identified the patient and participated in the time-out.: Yes Procedure Operation Date: 02/16/20 11:30 Actual Procedures p Upper Esophagogastroduodenoscopy, Endoscopic Ultrasonography Upper, Endoscopic Retrograde Cholangiopancreatography(Not Applicable) - Karishma Carballo DO Surgeon Karishma Carballo DO Limb Driver none Estimated Blood Loss 0 Findings Consistent with Post-Op Diagnosis
[2020-02-16] MEDS ORDERED: GLUCAGON FOR INJ 1 MG VIAL ONE (14:37)
[2020-02-16] MEDS ORDERED: LACTATED RINGER'S 1,000 ML IV SCH (14:57)
--- NOTE | 2020-02-16 15:04 | Fluoroscopy Report ---
INTRAOPERATIVE RADIOGRAPH CLINICAL HISTORY: ERCP. Fluoroscopy time: 301 seconds. FINDINGS: A single spot fluoroscopic image of the upper abdomen from an ERCP procedure is presented. The endoscope projects over the stomach. A stent likely projects over the common bile duct. IMPRESSION: Intraoperative ERCP image as above. See operative report for detailed findings. Electronically signed by: Tio Stapleton M.D. 02/16/2020 3:03 PM
--- NOTE | 2020-02-16 18:00 | Hospitalist Progress Note ---
Date of Service February 16, 2020 Assessment & Plan (1) Abdominal pain with vomiting: History of ovarian Ca with peritoneal mets, undergoing chemotherapy. History of malignant ascites, s/p paracentesis 02/13/20 (cytology + for ovarian Ca). Presented with abdominal pain, nausea, vomiting. Afebrile at time of presentation. Tachycardia. Hemodynamically stable. WBC at time of admission 12,590. Procalcitonin 0.47. Total bilirubin 0.9, AST 95, ALT 59, alk phos 181. CT abdomen & pelvis: "Moderate to marked diffuse wall thickening involving numerous fluid-filled loops of small bowel are suggestive of a nonspecific enteritis. Wall thickening of the gastric antrum may be secondary to partial distention versus gastritis. Small volume of abdominal pelvic ascites has decreased from comparison. Numerous peritoneal and omental calcifications suggest areas of treated disease. Probable cholelithiasis." Started on IV antibiotic therapy with piperacillin / tazobactam. GI consulted. Diagnostic considerations included choledocholithiasis, enteritis, chemo-induced N&V. US abdomen: trace ascites MRCP: "1. Possible 4 mm filling defect seen within the distal common bile duct. However, there is no upstream dilatation. Consider ERCP to exclude the possibility of a nonobstructing distal common bile duct stone. 2. Small amount of ascites, unchanged. 3. Diffusely thickened small bowel which is fluid-filled and mildly distended. This is similar to the prior study and favors a nonspecific enteritis. A partial bowel obstruction cannot be excluded. 4. No gallbladder wall thickening. No gallstones." EUS: "There was dilation in the common bile duct which measured up to 7-8 mm. One stone and some sludge was visualized endosonographically in the common bile duct. Hyperechoic material consistent with sludge was visualized endosonographically in the gallbladder body. There was no evidence of significant pathology in the left lobe of the liver. There was no sign of significant pathology in the entire pancreas. Ascites (consistent with known malignant ascites) was found on endosonographic examination of the peritoneal cavity. No specimens collected." ERCP: "The major papilla was adjacent to a diverticulum. The major papilla appeared congested. One pancreatic stent was placed into the ventral pancreatic duct. Transfer to tertiary care recommended for further management of choledocholithiasis." (2) Pulmonary infiltrate: Experienced some chest discomfort and SOB at time of presentation. D-dimer was elevated. No infiltrates appreciated on chest x-ray. CTA chest: "No evidence of pulmonary thromboembolic disease. Moderate bronchial wall thickening suggestive of bronchitis versus reactive airway disease with mucous plugging, mild atelectasis and air trapping. Minimal groundglass patchy opacities of the basal right lower lobe are suggestive of a nonspecific infectious or inflammatory pneumonitis." No significant cough. Maintaining good oxygenation. May have aspirated due to N&V. SARS-CoV-2 Ag & PCR negative. Receiving IV piperacillin / tazobactam to cover possible aspiration pneumonia as well as possible abdominal infection. (3) Elevated d-dimer: D-dimer 1610. CTA chest neg for PE. Venous duplex lower extremities negative for DVT. (4) Hypokalemia: Serum K at time of admission 3.1. Received replacement. K this morning = 3.3. Continue replacement. Follow. (5) Hypomagnesemia: Mg at time of admission 0.6. Received replacement. Mg this morning = 1.9. Follow. (6) Hypocalcemia: Calcium at time of admission 7.1 with albumin of 2.5. Corrected calcium 8.3. Received calcium replacement. Calcium this morning = 6.4. Ionized calcium this morning = 0.85. Continue replacement. Follow. (7) HTN (hypertension): Hemodynamically stable. Continue atenolol. (8) CKD (chronic kidney disease), stage III: Baseline creatinine around 1.1. Serum creatinine at time of admission 1.37. Creatinine today = 1.31. Maintain adequate hydration. Follow. (9) COVID-19 ruled out: SARS-CoV-2 Ag + PCR negative. 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 (11) DVT prophylaxis: Initially received SQ enoxaparin. Enoxaparin held for invasive procedures. SCD's (12) Discharge planning issues: Transfer to tertiary care facility anticipated once logistics are worked out. Internal Medicine follow-up with Dr. Sifuentes. Hematology / Medical Oncology follow-up with Dr. Bakari Cruz. Admission and Anticipated Discharge Date Admission Date: February 14, 2020 Subjective Recheck for GI symptoms and electrolyte abnormalities. Patient seen in their room around 1520. Underwent EUS and ERCP today as detailed below. Unfortunately, the common bile duct could not be cannulated. No emesis since yesterday. Mild diffuse abdominal discomfort. No diarrhea, melena, hematochezia. No fever. Review of Systems: Constitutional- as noted above. Cardiac- no chest pain. Pulmonary- no cough or SOB. GI- as noted above. - no urinary symptoms. Otherwise, as noted above. Physical Exam Constitutional: no acute distress Eyes: + anicteric sclerae Respiratory: normal respiratory effort, lungs clear to auscultation Cardiovascular: Rate/Rhythm: regular rate and regular rhythm Vessels: no JVD Extremities: + edema (1+ pretibial); no calf tenderness Gastrointestinal (Abdomen): Inspection/Auscultation: abdomen not distended Percussion/Palpation: + abdomen tender (diffuse, mild, no rebound) and abdomen soft Musculoskeletal: Extremities: no cyanosis Skin: no rashes, warm and dry Psychiatric: Orientation: alert and oriented x 3 Results & Data Results & Data ([facility]) Vital Signs (Past 12 Hours) Vital Signs Temp Pulse Pulse Pulse Resp BP BP 02/16/20 16:03 66 16 125/60 02/16/20 15:29 36.4 C L 95 H 18 124/65 02/16/20 15:21 66 02/16/20 14:30 36.8 C 100 H 18 126/88 02/16/20 14:15 36.7 C 86 16 123/87 02/16/20 14:05 112 H 16 128/70 02/16/20 13:55 94 H 16 123/92 02/16/20 13:48 36.4 C L 103 H 16 120/93 02/16/20 10:49 36.5 C 104 H 17 117/79 02/16/20 08:17 107 H 02/16/20 07:00 36.5 C 110 H 19 107/71 Laboratory Results Laboratory Results - last 24 hr 02/16/20 02/16/20 02/16/20 05:32 05:32 05:32 WBC 10.31 RBC 2.78 L Hgb 9.2 L Hct 27.9 L MCV 100.4 H MCH 33.1 MCHC 33.0 RDW Std Deviation 76.2 H RDW Coeff of Ross 21.8 H Plt Count 192 MPV 9.8 Immature Gran % (Auto) 1.3 Neut % (Auto) 70.6 Lymph % (Auto) 13.1 [place] % (Auto) 14.4 Eos % (Auto) 0.5 Baso % (Auto) 0.1 Neut # (Auto) 7.29 H Lymph # (Auto) 1.35 [place] # (Auto) 1.48 H Eos # (Auto) 0.05 Baso # (Auto) 0.01 Immature Gran # (Auto) 0.13 H Absolute Nucleated RBC 0.09 H Nucleated RBC % (auto) 0.9 Hypersegmented Neuts 1+ Anisocytosis Present Sodium 138 Potassium 3.3 L Chloride 101 Carbon Dioxide 34 H Anion Gap 3.0 BUN 21 H Creatinine 1.31 H Est Cr Clr Drug Dosing 46.6 Est GFR ( Amer) 49.4 Est GFR (Non-Af Amer) 42.6 BUN/Creatinine Ratio 15.9 Glucose 119 H Calcium 6.4 L Ionized Calcium Magnesium 1.9 Total Bilirubin 0.9 Direct Bilirubin 0.4 H AST 74 H ALT 48 Alkaline Phosphatase 122 H Total Protein 5.8 L Albumin 2.1 L Globulin 3.7 Albumin/Globulin Ratio 0.6 L Procalcitonin 0.47 02/16/20 05:32 WBC RBC Hgb Hct MCV MCH MCHC RDW Std Deviation RDW Coeff of Ross Plt Count MPV Immature Gran % (Auto) Neut % (Auto) Lymph % (Auto) [place] % (Auto) Eos % (Auto) Baso % (Auto) Neut # (Auto) Lymph # (Auto) [place] # (Auto) Eos # (Auto) Baso # (Auto) Immature Gran # (Auto) Absolute Nucleated RBC Nucleated RBC % (auto) Hypersegmented Neuts Anisocytosis Sodium Potassium Chloride Carbon Dioxide Anion Gap BUN Creatinine Est Cr Clr Drug Dosing Est GFR ( Amer) Est GFR (Non-Af Amer) BUN/Creatinine Ratio Glucose Calcium Ionized Calcium 0.85 L Magnesium Total Bilirubin Direct Bilirubin AST ALT Alkaline Phosphatase Total Protein Albumin Globulin Albumin/Globulin Ratio Procalcitonin
[2020-02-17] MEDS: POTASSIUM CHLORIDE IV SCH ×2 (07:36→15:42)
[2020-02-17] MEDS: CALCIUM GLUCONATE IV SCH ×2 (07:36→15:42)
[2020-02-17] MEDS: D5W IV SCH ×2 (07:36→15:42)
[2020-02-17] MEDS: [UNRECOGNIZED DRUG - OTHER] IV SCH ×2 (07:36→15:42)
[2020-02-17 07:39] LABS: Basophils # (auto) 0.01 K/uL (0-0.2); Basophils % (auto) 0.1 %; Eosinophils # (auto) 0.05 K/uL (0-0.5); Eosinophils % (auto) 0.5 %; Hematocrit (blood only) 29.7 % (37-47); Hemoglobin 9.7 g/dL (12.0-16.0); Lymphocytes # (auto) 1.25 K/uL (1.2-3.4); Lymphocytes % (auto) 12.7 %; Mean Corpuscular Hemoglobin 32.7 pg (25-34); Mean Corpuscular Hgb Conc 32.7 g/dL (32-36); Mean Platelet Volume 9.8 fL (7.4-10.4); Monocytes # (auto) 1.27 K/uL (0.11-0.59); Monocytes % (auto) 12.9 %; Neutrophils # (auto) 7.19 K/uL (1.4-6.5); Neutrophils % (auto) 72.8 %; Nucleated RBC # (auto) 0.04 K/uL (0-0); Nucleated RBC % (auto) 0.4 %; Platelet Count 246 K/uL (130-400); RDW Coefficient of Variation 21.5 % (11.5-14.5); Red Blood Count 2.97 M/uL (4.2-5.4); White Blood Count 9.87 K/uL (4.8-10.8)
[2020-02-17 08:10] LABS: Anisocytosis Present; Polychromasia 1+
[2020-02-17 08:19] LABS: Albumin Globulin Ratio 0.5 (0.9-2); BUN Creatinine Ratio 12.5 (10-20); Bilirubin Direct 0.7 mg/dl (0-0.2); Bilirubin,Total 1.2 mg/dl (0.2-1); Calcium 7.7 mg/dl (8.5-10.1); Creatinine Clr Calc Pharmacy 48.8 ml/min; Est GFR (African American) 52.3; Est GFR (Non-African American) 45.1; Globulin 3.8 gm/dl (2.5-4.0); Magnesium 1.6 mg/dl (1.8-2.4); Phosphorus 3.1 mg/dl (2.5-4.9); Potassium 4.3 mmol/L (3.5-5.1); Total Protein 5.8 gm/dl (6.4-8.2)
[2020-02-17] MEDS: PIPERACILLIN/TAZOBACTAM 3.375 GM in DEXTROSE 5% 100 ML IV SCH ×2 (08:35→15:36)
[2020-02-17] MEDS: NICOTINE 21 MG/24 HR TDSY TD SCH (08:37)
[2020-02-17] MEDS: PANTOprazole 40 MG TAB PO SCH (08:42)
[2020-02-17] MEDS: ENOXAPARIN INJ 40 MG/0.4 ML SYR SQ SCH (09:21)
[2020-02-17] MEDS: ATENOLOL 25 MG TABLET PO SCH (09:21)
[2020-02-17] MEDS ORDERED: MAGNESIUM SULFATE / D5W 1 GM/100 ML BAG IV ONE (11:00)
[2020-02-17] MEDS: PROMETHAZINE HCL 25 MG in SODIUM CHLORIDE 0.9% 50 ML IV PRN ×2 (11:52→21:51)
--- NOTE | 2020-02-17 13:10 | Hospitalist Progress Note ---
Date of Service February 17, 2020 Assessment & Plan (1) Abdominal pain with vomiting: History of ovarian Ca with peritoneal mets, undergoing chemotherapy. History of malignant ascites, s/p paracentesis 02/13/20 (cytology + for ovarian Ca). Presented with abdominal pain, nausea, vomiting. Afebrile at time of presentation. Tachycardia. Hemodynamically stable. WBC at time of admission 12,590. Procalcitonin 0.47. Total bilirubin 0.9, AST 95, ALT 59, alk phos 181. CT abdomen & pelvis: "Moderate to marked diffuse wall thickening involving numerous fluid-filled loops of small bowel are suggestive of a nonspecific enteritis. Wall thickening of the gastric antrum may be secondary to partial distention versus gastritis. Small volume of abdominal pelvic ascites has decreased from comparison. Numerous peritoneal and omental calcifications suggest areas of treated disease. Probable cholelithiasis." Started on IV antibiotic therapy with piperacillin / tazobactam. GI consulted. Diagnostic considerations included choledocholithiasis, enteritis, chemo-induced N&V. US abdomen: trace ascites MRCP: "1. Possible 4 mm filling defect seen within the distal common bile duct. However, there is no upstream dilatation. Consider ERCP to exclude the possibility of a nonobstructing distal common bile duct stone. 2. Small amount of ascites, unchanged. 3. Diffusely thickened small bowel which is fluid-filled and mildly distended. This is similar to the prior study and favors a nonspecific enteritis. A partial bowel obstruction cannot be excluded. 4. No gallbladder wall thickening. No gallstones." EUS: "There was dilation in the common bile duct which measured up to 7-8 mm. One stone and some sludge was visualized endosonographically in the common bile duct. Hyperechoic material consistent with sludge was visualized endosonographically in the gallbladder body. There was no evidence of significant pathology in the left lobe of the liver. There was no sign of significant pathology in the entire pancreas. Ascites (consistent with known malignant ascites) was found on endosonographic examination of the peritoneal cavity. No specimens collected." ERCP: "The major papilla was adjacent to a diverticulum. The major papilla appeared congested. One pancreatic stent was placed into the ventral pancreatic duct. Transfer to tertiary care recommended for further management of choledocholithiasis." WBC at time of admission 12,590 >> 9870. Continue piperacillin / tazobactam for possible cholangitis. (2) Pulmonary infiltrate: Experienced some chest discomfort and SOB at time of presentation. D-dimer was elevated. No infiltrates appreciated on chest x-ray. CTA chest: "No evidence of pulmonary thromboembolic disease. Moderate bronchial wall thickening suggestive of bronchitis versus reactive airway disease with mucous plugging, mild atelectasis and air trapping. Minimal groundglass patchy opacities of the basal right lower lobe are suggestive of a nonspecific infectious or inflammatory pneumonitis." No significant cough. Maintaining good oxygenation. May have aspirated due to N&V. SARS-CoV-2 Ag & PCR negative. Receiving IV piperacillin / tazobactam to cover possible aspiration pneumonia as well as possible abdominal infection. (3) Elevated d-dimer: D-dimer 1610. CTA chest neg for PE. Venous duplex lower extremities negative for DVT. (4) Hypokalemia: Serum K at time of admission 3.1. Received replacement. K this morning = 4.3. Continue replacement. Follow. (5) Hypomagnesemia: Mg at time of admission 0.6. Received replacement. Mg this morning = 1.6. Continue replacement. Follow. (6) Hypocalcemia: Calcium at time of admission 7.1 with albumin of 2.5. Corrected calcium 8.3. Received calcium replacement. Calcium this morning = 7.7. Ionized calcium this morning = 1.03. Continue replacement. Follow. (7) HTN (hypertension): Hemodynamically stable. Continue atenolol. (8) CKD (chronic kidney disease), stage III: Baseline creatinine around 1.1. Serum creatinine at time of admission 1.37. Creatinine today = 1.25. Maintain adequate hydration. Follow. (9) COVID-19 ruled out: SARS-CoV-2 Ag + PCR negative on 02/13. 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 (11) DVT prophylaxis: Initially received SQ enoxaparin. Enoxaparin held for invasive procedures. SCD's (12) Discharge planning issues: Transfer to tertiary care facility anticipated once logistics are worked out. Internal Medicine follow-up with Dr. Sifuentes. Hematology / Medical Oncology follow-up with Dr. Bakari Cruz. Admission and Anticipated Discharge Date Admission Date: February 14, 2020 Subjective Recheck for GI symptoms and electrolyte abnormalities. Patient seen in their room around 1020. Nausea this morning after clear liquids for breakfast. Mild diffuse abdominal discomfort (chronic), but no epigastric or RUQ pain. Passing flatus, but no stool. No fever. Review of Systems: Constitutional- as noted above. Cardiac- no chest pain. Pulmonary- no cough or SOB. GI- as noted above. - no urinary symptoms. Otherwise, as noted above. Physical Exam Constitutional: no acute distress Eyes: + anicteric sclerae Respiratory: normal respiratory effort, lungs clear to auscultation Cardiovascular: Rate/Rhythm: regular rate and regular rhythm Vessels: no JVD Extremities: + edema (trace-1+ pretibial); no calf tenderness Gastrointestinal (Abdomen): Inspection/Auscultation: abdomen not distended Percussion/Palpation: + abdomen tender (diffuse, mild, no rebound) and abdomen soft Musculoskeletal: Extremities: no cyanosis Skin: no rashes, warm and dry Psychiatric: Orientation: alert and oriented x 3 Results & Data Results & Data ([facility]) Vital Signs (Past 12 Hours) Vital Signs Temp Pulse Pulse Resp BP Pulse Ox 02/17/20 10:23 36.4 C L 94 H 18 136/102 H 94 02/17/20 08:00 83 02/17/20 07:07 36.7 C 81 18 119/78 95 02/17/20 04:00 36.6 C 67 18 104/68 93 Laboratory Results Laboratory Results - last 24 hr 02/17/20 02/17/20 02/17/20 07:30 07:30 07:30 WBC 9.87 RBC 2.97 L Hgb 9.7 L Hct 29.7 L MCV 100.0 MCH 32.7 MCHC 32.7 RDW Std Deviation 76.0 H RDW Coeff of Ross 21.5 H Plt Count 246 MPV 9.8 Immature Gran % (Auto) 1.0 Neut % (Auto) 72.8 Lymph % (Auto) 12.7 [place] % (Auto) 12.9 Eos % (Auto) 0.5 Baso % (Auto) 0.1 Neut # (Auto) 7.19 H Lymph # (Auto) 1.25 [place] # (Auto) 1.27 H Eos # (Auto) 0.05 Baso # (Auto) 0.01 Immature Gran # (Auto) 0.10 H Absolute Nucleated RBC 0.04 H Nucleated RBC % (auto) 0.4 Hypersegmented Neuts 1+ Polychromasia 1+ Anisocytosis Present Sodium 137 Potassium 4.3 D Chloride 105 Carbon Dioxide 28 Anion Gap 5.0 BUN 16 Creatinine 1.25 H Est Cr Clr Drug Dosing 48.8 Est GFR ( Amer) 52.3 Est GFR (Non-Af Amer) 45.1 BUN/Creatinine Ratio 12.5 Glucose 92 Calcium 7.7 L D Ionized Calcium 1.03 L Phosphorus 3.1 Magnesium 1.6 L Total Bilirubin 1.2 H Direct Bilirubin 0.7 H D AST 72 H ALT 45 Alkaline Phosphatase 156 H Total Protein 5.8 L Albumin 2.0 L Globulin 3.8 Albumin/Globulin Ratio 0.5 L Lipase 02/17/20 07:30 WBC RBC Hgb Hct MCV MCH MCHC RDW Std Deviation RDW Coeff of Ross Plt Count MPV Immature Gran % (Auto) Neut % (Auto) Lymph % (Auto) [place] % (Auto) Eos % (Auto) Baso % (Auto) Neut # (Auto) Lymph # (Auto) [place] # (Auto) Eos # (Auto) Baso # (Auto) Immature Gran # (Auto) Absolute Nucleated RBC Nucleated RBC % (auto) Hypersegmented Neuts Polychromasia Anisocytosis Sodium Potassium Chloride Carbon Dioxide Anion Gap BUN Creatinine Est Cr Clr Drug Dosing Est GFR ( Amer) Est GFR (Non-Af Amer) BUN/Creatinine Ratio Glucose Calcium Ionized Calcium Phosphorus Magnesium Total Bilirubin Direct Bilirubin AST ALT Alkaline Phosphatase Total Protein Albumin Globulin Albumin/Globulin Ratio Lipase 372 Microbiology 02/14/20 20:07 Blood Aerobic Blood Culture - Preliminary No growth in Aerobic bottle after 48 hours. 02/14/20 20:07 Blood Anaerobic Blood Culture - Final 02/14/20 18:06 Blood Aerobic Blood Culture - Preliminary No growth in Aerobic bottle after 48 hours. 02/14/20 18:06 Blood Anaerobic Blood Culture - Preliminary No growth in Anaerobic bottle after 48 hours.
--- NOTE | 2020-02-17 20:54 | Communication Note ---
Date of Service: February 17, 2020 [facility] accepted patient in transfer, but preauth necessary since [facility] is out of network. Preauth not available on weekend. Called [facility] this morning. Spoke with Dr. Lam (Hospital Medicine) and Dr. Jaffe (GI). They accepted the patient in transfer, but no beds available. Will try to get insurance preauth for [facility] tomorrow if still no bed available at [facility].
[2020-02-18] MEDS: PIPERACILLIN/TAZOBACTAM 3.375 GM in DEXTROSE 5% 100 ML IV SCH ×3 (00:09→16:49)
[2020-02-18] MEDS: [UNRECOGNIZED DRUG - OTHER] IV SCH ×4 (05:33→20:40)
[2020-02-18] MEDS: D5W IV SCH ×4 (05:33→20:40)
[2020-02-18] MEDS: POTASSIUM CHLORIDE IV SCH ×4 (05:33→20:40)
[2020-02-18] MEDS: CALCIUM GLUCONATE IV SCH ×4 (05:33→20:40)
--- NOTE | 2020-02-18 07:21 | Hospitalist Progress Note ---
Date of Service February 18, 2020 Assessment & Plan (1) Abdominal pain with vomiting: History of ovarian Ca with peritoneal mets, undergoing chemotherapy. History of malignant ascites, s/p paracentesis 02/13/20 (cytology + for ovarian Ca). Presented with abdominal pain, nausea, vomiting. Afebrile at time of presentation. Tachycardia. Hemodynamically stable. WBC at time of admission 12,590. Procalcitonin 0.47. Total bilirubin 0.9, AST 95, ALT 59, alk phos 181. CT abdomen & pelvis: "Moderate to marked diffuse wall thickening involving numerous fluid-filled loops of small bowel are suggestive of a nonspecific enteritis. Wall thickening of the gastric antrum may be secondary to partial distention versus gastritis. Small volume of abdominal pelvic ascites has decreased from comparison. Numerous peritoneal and omental calcifications suggest areas of treated disease. Probable cholelithiasis." Started on IV antibiotic therapy with piperacillin / tazobactam. GI consulted. Diagnostic considerations included choledocholithiasis, enteritis, chemo-induced N&V. US abdomen: trace ascites MRCP: "1. Possible 4 mm filling defect seen within the distal common bile duct. However, there is no upstream dilatation. Consider ERCP to exclude the possibility of a nonobstructing distal common bile duct stone. 2. Small amount of ascites, unchanged. 3. Diffusely thickened small bowel which is fluid-filled and mildly distended. This is similar to the prior study and favors a nonspecific enteritis. A partial bowel obstruction cannot be excluded. 4. No gallbladder wall thickening. No gallstones." EUS: "There was dilation in the common bile duct which measured up to 7-8 mm. One stone and some sludge was visualized endosonographically in the common bile duct. Hyperechoic material consistent with sludge was visualized endosonographically in the gallbladder body. There was no evidence of significant pathology in the left lobe of the liver. There was no sign of significant pathology in the entire pancreas. Ascites (consistent with known malignant ascites) was found on endosonographic examination of the peritoneal cavity. No specimens collected." ERCP: "The major papilla was adjacent to a diverticulum. The major papilla appeared congested. One pancreatic stent was placed into the ventral pancreatic duct." WBC at time of admission 12,590 >> 9290. Continue piperacillin / tazobactam for possible cholangitis. [place]ed [place] [facility] [place] [facility] [place] for further management of choledocholithiasis without success. GI to try another ERCP today. (2) Pulmonary infiltrate: Experienced some chest discomfort and SOB at time of presentation. D-dimer was elevated. No infiltrates appreciated on chest x-ray. CTA chest: "No evidence of pulmonary thromboembolic disease. Moderate bronchial wall thickening suggestive of bronchitis versus reactive airway disease with mucous plugging, mild atelectasis and air trapping. Minimal groundglass patchy opacities of the basal right lower lobe are suggest lázaro of a nonspecific infectious or inflammatory pneumonitis." No significant cough. Maintaining good oxygenation. May have aspirated due to N&V. SARS-CoV-2 Ag & PCR negative. Receiving IV piperacillin / tazobactam to cover possible aspiration pneumonia as well as possible abdominal infection. (3) Elevated d-dimer: D-dimer 1610. CTA chest neg for PE. Venous duplex lower extremities negative for DVT. (4) Hypokalemia: Serum K at time of admission 3.1. Received replacement. K this morning = 4.6. Continue replacement. Follow. (5) Hypomagnesemia: Mg at time of admission 0.6. Received replacement. Mg this morning = 1.5. Continue replacement. Follow. (6) Hypocalcemia: Calcium at time of admission 7.1 with albumin of 2.5. Corrected calcium 8.3. Received calcium replacement. Calcium this morning = 7.8 . Ionized calcium this morning = 1.07. Continue replacement. Follow. (7) HTN (hypertension): Hemodynamically stable. Continue atenolol. (8) CKD (chronic kidney disease), stage III: Baseline creatinine around 1.1. Serum creatinine at time of admission 1.37. Creatinine today = 1.07. Maintain adequate hydration. Follow. (9) COVID-19 ruled out: SARS-CoV-2 Ag + PCR negative on 02/13. 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 (11) DVT prophylaxis: Initially received SQ enoxaparin. Enoxaparin held for invasive procedures. SCD's (12) Discharge planning issues: Discharge disposition to be determined. Internal Medicine follow-up with Dr. Sifuentes. Hematology / Medical Oncology follow-up with Dr. Bakari Cruz. Admission and Anticipated Discharge Date Admission Date: February 14, 2020 Subjective Recheck for GI symptoms and electrolyte abnormalities. Patient seen in their room around 0700. No nausea or vomiting last night. Mild RUQ pain. Passing flatus, but no stool. No fever. Review of Systems: Constitutional- as noted above. Cardiac- no chest pain. Pulmonary- no cough or SOB. GI- as noted above. - no urinary symptoms. Otherwise, as noted above. Physical Exam Constitutional: no acute distress Eyes: + anicteric sclerae Respiratory: normal respiratory effort, lungs clear to auscultation Cardiovascular: Rate/Rhythm: regular rate and regular rhythm Vessels: no JVD Extremities: + edema (trace-1+ pretibial); no calf tenderness Gastrointestinal (Abdomen): Inspection/Auscultation: abdomen not distended Percussion/Palpation: + abdomen tender (mild-mod RUQ) and abdomen soft Musculoskeletal: Extremities: no cyanosis Skin: no rashes, warm and dry Psychiatric: Orientation: alert and oriented x 3 Results & Data Results & Data ([facility]) Vital Signs (Past 12 Hours) Vital Signs Temp Pulse Pulse Resp BP BP Pulse Ox 02/18/20 06:32 36.5 C 75 17 129/74 92 02/18/20 03:41 36.5 C 77 17 120/75 92 02/17/20 23:16 37.4 C 76 17 132/81 95 02/17/20 23:00 80 02/17/20 19:20 37.2 C 72 19 130/89 95
[2020-02-18 07:53] LABS: Basophils # (auto) 0.01 K/uL (0-0.2); Basophils % (auto) 0.1 %; Eosinophils # (auto) 0.09 K/uL (0-0.5); Hematocrit (blood only) 28.2 % (37-47); Hemoglobin 9.1 g/dL (12.0-16.0); Immature Granulocytes # (auto) 0.11 K/uL (0.00-0.02); Immature Granulocytes % (auto) 1.2 %; Lymphocytes # (auto) 1.55 K/uL (1.2-3.4); Lymphocytes % (auto) 16.7 %; Mean Corpuscular Hemoglobin 32.9 pg (25-34); Mean Corpuscular Hgb Conc 32.3 g/dL (32-36); Mean Corpuscular Volume 101.8 fL (80-100); Mean Platelet Volume 9.7 fL (7.4-10.4); Monocytes # (auto) 1.55 K/uL (0.11-0.59); Monocytes % (auto) 16.7 %; Neutrophils # (auto) 5.98 K/uL (1.4-6.5); Neutrophils % (auto) 64.3 %; Platelet Count 288 K/uL (130-400); RDW Coefficient of Variation 21.9 % (11.5-14.5); RDW Standard Deviation 78.4 fL (36.4-46.3); Red Blood Count 2.77 M/uL (4.2-5.4); White Blood Count 9.29 K/uL (4.8-10.8)
[2020-02-18 08:28] LABS: Spherocytes 1+
[2020-02-18 08:29] LABS: Albumin Globulin Ratio 0.5 (0.9-2); Albumin Level 1.9 gm/dl (3.4-5.0); BUN Creatinine Ratio 8.7 (10-20); Bilirubin Direct 0.4 mg/dl (0-0.2); Calcium 7.8 mg/dl (8.5-10.1); Creatinine Clr Calc Pharmacy 58.2 ml/min; Est GFR (African American) 63.1; Est GFR (Non-African American) 54.4; Globulin 3.8 gm/dl (2.5-4.0); Magnesium 1.5 mg/dl (1.8-2.4); Potassium 4.6 mmol/L (3.5-5.1); Total Protein 5.7 gm/dl (6.4-8.2)
--- NOTE | 2020-02-18 09:00 | Gastroenterology Progress Note ---
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 Imaging suggestive of choledocholithiasis. Cause of nausea likely from choledocholithiasis, though may be from chemotherapy. - ERCP is planned for this afternoon with Dr. Mcdonald. - Continue zosyn, pantoprazole. - Hold Lovenox until after procedure. Admission and Anticipated Discharge Date Admission Date: February 14, 2020 Supervising Physician Co-Signing Physician Notes I performed a history and physical examination of the patient today, including specifically on physical exam - soft abdomen. I have discussed the patient's management with the advanced practitioner. Please refer to the nurse practitioner's note for the documented findings and plan of care. Hold on transfer to tertiary center, I will perform her ERCP today even EUS- guided biliary access if needed. Subjective Pt is a 64 yr old female with met ovarian CA on chemo managed by Dr. Cruz. Nausea x about a month. She underwent paracentesis last Wed and nausea/vomiting became persistent. Imaging with gallstones, choledocholithiasis. ERCP attempt 02/14 - not able to cannulate the bile duct. Plan is for ERCP attempt today by Dr. Mcdonald. She is added to the OR schedule - anticipated time for procedure sometime this afternoon. Patient seen in their room around 0830, sitting in bed, awake, alert, comfortable and provides a detailed hx. Some nausea, no vomiting overnight, no significant abd pain. Afebrile, hemodynamically stable, no leukocytosis, K and Na normal. LFTs are slightly elevated: T Bili 04, AST 56, ALT 34, Alk Phos 159. Review of Systems Review of Systems: ROS: Gen: Denies weakness, fevers, weight loss Eyes: No eye redness, or pain, no recent vision changes Resp: No SOB, no cough Cardio: No palpitations/irregular beats, no chest pain GI: As per HPI : Denies pain on urination Skin: No jaundice, itching or new rashes Physical Exam Constitutional: WD/WN, vitals as above well nourished and average body habitus Eyes: PERRL, conjunctivae normal, anicteric sclerae ENMT: external ear and nose normal, oropharynx normal Neck: trachea midline, no thyromegaly Respiratory: normal respiratory effort, lungs clear to auscultation Cardiovascular: RRR, no murmur, no edema Gastrointestinal (Abdomen): normal bowel sounds, soft, nontender, no hepatosplenomegaly mild ascites Skin: no rashes, warm and dry Neurologic: PERRL, EOMI, accommodation nl, no face palsy, no dysarthria Psychiatric: A+Ox3, euthymic affect Results & Data ([facility]) Vital Signs (Past 12 Hours) Vital Signs Temp Pulse Pulse Resp BP BP Pulse Ox 02/18/20 07:37 78 02/18/20 06:32 36.5 C 75 17 129/74 92 02/18/20 03:41 36.5 C 77 17 120/75 92 02/17/20 23:16 37.4 C 76 17 132/81 95 02/17/20 23:00 80 Laboratory Results WBC 9, Hb 8.4, Hct 28.2, Platelets 288, Na 137, K 4.6, BUN 9, Cr 1.07, glucose 89, Ca 7.8, Hb 1.5, See HPI for LFTs INR 1.1 on arrival. Diagnostic Findings EUS on 02/14: stones/sludge in the gallbladder and CBD which measures 7-8mm.
[2020-02-18] MEDS ORDERED: MAGNESIUM SULFATE / D5W 1 GM/100 ML BAG IV ONE (09:30)
[2020-02-18] MEDS: ENOXAPARIN INJ 40 MG/0.4 ML SYR SQ SCH (10:10)
[2020-02-18] MEDS: NICOTINE 21 MG/24 HR TDSY TD SCH (10:11)
[2020-02-18] MEDS: ATENOLOL 25 MG TABLET PO SCH (10:15)
[2020-02-18] MEDS: PANTOprazole 40 MG in SYRINGE 0 ML IV SCH (11:48)
[2020-02-18] MEDS ORDERED: LIDOCAINE HCL 2% 2 ML VIAL/AMP(20MG/ML) INFIL ONE (12:56)
[2020-02-18] MEDS ORDERED: ROCURONIUM BROMIDE 10 MG/ML 5 ML VIAL IV ONE (12:56)
[2020-02-18] MEDS ORDERED: SUCCINYLCHOLINE CHLORIDE 20 MG/ML 10 ML VIAL IV ONE (12:56)
[2020-02-18] MEDS ORDERED: fentaNYL citrate 100 MCG/2 ML VIAL ONE (12:56)
[2020-02-18] MEDS ORDERED: ONDANSETRON INJ 2 MG/ML 2 ML VIAL ONE (12:56)
[2020-02-18] MEDS ORDERED: MIDAZOLAM HCL 1 MG/ML 2ML VIAL ONE (12:56)
[2020-02-18] MEDS ORDERED: PROPOFOL IV EMULSION 10 MG/ML 20 ML VIAL IV ONE (12:56)
[2020-02-18] MEDS ORDERED: IOVERSOL 50ml IV ONE (13:16)
[2020-02-18] MEDS ORDERED: ePHEDrine sulfate 50 MG/ML AMP IV PRN (13:17)
[2020-02-18] MEDS ORDERED: ONDANSETRON INJ 2 MG/ML 2 ML VIAL IV PRN (13:17)
[2020-02-18] MEDS ORDERED: fentaNYL citrate 100 MCG/2 ML VIAL IV PRN (13:17)
[2020-02-18] MEDS ORDERED: ATROPINE SULFATE 0.1 MG/ML 10ML SYR IV PRN (13:17)
[2020-02-18] MEDS ORDERED: PROMETHAZINE HCL 12.5 MG in SODIUM CHLORIDE 0.9% 50 ML IV PRN (13:17)
--- NOTE | 2020-02-18 13:17 | Anesthesiology Consultation ---
Date of Service February 18, 2020 Assessment & Plan ASA ASA3 Proposed Anesthesia Anesthesia Type: General Risk / Benefits Reviewed With: PT / POA / Parent / Guardian, Accepts Plan and Informed Consent Obtained History Surgery Operation Date: 02/16/20 11:30 Proposed Procedures p Endoscopic Ultrasonography Upper, Possible Endoscopic Retrograde Cholangiopancreato - Karishma Carballo DO Operation Date: 02/18/20 07:55 Proposed Procedures p Endoscopic Retrograde Cholangiopancreatogram - Belle Mcdonald MD Height/Weight Height: 5 ft 7 in Weight: 83.5 kg Allergies Allergy/AdvReac Type Severity Reaction Status Date / Time castor oil Allergy Severe ANAPHYLAXIS Verified 02/13/20 12:13 paclitaxel Allergy Severe ANAPHYLAXIS Verified 02/13/20 12:13 Ethanol Allergy Severe ANAPHYLAXIS Uncoded 02/13/20 12:13 Medications Home Medications Medication Instructions Recorded Confirmed Last Taken aspirin [Aspir-81] 81 mg PO DAILY 02/14/20 02/14/20 Unknown atenolol 25 mg PO DAILY 02/14/20 02/14/20 Unknown esomeprazole magnesium 20 mg PO DAILY 02/14/20 02/14/20 Unknown furosemide [Lasix] 40 mg PO DAILY 02/14/20 02/14/20 Unknown levocetirizine 5 mg PO PM 02/14/20 02/14/20 Unknown ondansetron 8 mg PO Q8H PRN 02/14/20 02/14/20 Unknown prochlorperazine maleate 10 mg PO Q6H PRN 02/14/20 02/14/20 Unknown [Compazine] Active Medications Generic Name Dose Route Start Last Admin Trade Name Freq PRN Reason Stop Dose Admin Aspirin 81 mg 02/15/20 09:00 02/16/20 10:44 Aspirin 81 Mg Ectab PO 03/16/20 08:59 Not Given DAILY AILEEN Atenolol 25 mg 02/15/20 09:00 02/18/20 10:15 Atenolol 25 Mg Tablet PO 03/16/20 08:59 Not Given DAILY AILEEN Enoxaparin Sodium 40 mg 02/15/20 09:00 02/18/20 10:10 Enoxaparin Inj 40 Mg/0.4 Ml Syr SQ 03/16/20 08:59 40 mg Q24H AILEEN Administration Promethazine HCl 25 mg/ Sodium 51 mls @ 204 mls/hr 02/14/20 20:19 02/17/20 22:15 Chloride IV 03/15/20 20:18 Infused Q6H PRN Infusion Nausea And Vomiting Piperacillin Sod/Tazobactam 115 mls @ 28.75 mls/hr 02/15/20 04:00 02/18/20 09:25 Sod 3.375 gm/ Dextrose IV 02/25/20 03:59 28.8 mls/hr Q8H AILEEN Administration Protocol Potassium Chloride 40 meq/ 1,030 mls @ 125 mls/hr 02/16/20 08:30 02/18/20 09:23 Calcium Gluconate 1,000 mg/ IV 03/17/20 08:29 125 mls/hr Dextrose/Sodium Chloride .Q8H15M AILEEN Administration Pantoprazole Sodium 40 mg/ 10 mls @ 5 mls/min 02/18/20 11:00 02/18/20 11:48 Syringe IV 03/19/20 10:59 5 mls/min DAILY@1100 AILEEN Administration Miscellaneous 1 ea 02/15/20 08:59 02/18/20 09:28 Remove Nicoderm Patch N/A 03/16/20 08:58 1 ea DAILY@0859 AILEEN Administration Miscellaneous 1 ea 02/15/20 00:00 02/18/20 09:08 Levocetirizine~Order Awaiting Action N/A 03/16/20 00:00 Not Given QS AILEEN Nicotine 21 mg 02/15/20 09:00 02/18/20 10:11 Nicotine 21 Mg/24 Hr Tdsy TD 03/16/20 08:59 21 mg QAM AILEEN Administration Ondansetron HCl 4 mg 02/14/20 21:11 02/15/20 10:47 Ondansetron Inj 2 Mg/Ml 2 Ml Vial IV 03/15/20 21:10 4 mg Q6H PRN Administration Nausea NPO Date Last Intake of Fluids: 02/18/20 Time Last Intake of Fluids: 00:00 Date Last Intake of Solids: 02/18/20 Time Last Intake of Solids: 00:00 Past Medical History Medical History Anemia CKD (chronic kidney disease), stage III HTN (hypertension) 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 Ovarian cancer Exercise / Class Metabolic Activity II 4-5 Yardwork/Stairs/Walk up hill Past Family History Family History Grandmother Cancer Father Hypertension Mother Stroke Past Surgical History Surgical History History of colonoscopy History of exploratory laparotomy History of total abdominal hysterectomy and bilateral salpingo-oophorectomy Past Anesthesia History No Hx of Anesthesia Complications and No Family Hx of Anesthesia Complications History of PONV No Hx of PONV and No Hx of Motion Sickness Social History Smoking Status: Current every day smoker tobacco type: cigarettes Do You Dip or Chew Tobacco: No Hx Alcohol Use: No Hx Substance Use: No Review of Systems denies fever/cough/ colds/ chest pain/ SOB/ LUPE denies LUPE Physical Exam Vital Signs Last Vital Signs Temp 36.8 C 02/18/20 10:59 Pulse 73 02/18/20 10:59 Resp 19 02/18/20 10:59 BP 142/81 H 02/18/20 10:59 Pulse Ox 96 02/18/20 10:59 ENMT Mouth: no TMJ abnormality and no dentition abnormality Thyromental Distance: > or= 3.5 Finger Breadths Mallampati Class: II Neck neck extension not limited Respiratory normal respiratory effort; no respiratory distress Auscultation: lungs clear to auscultation bilaterally Cardiovascular Rate/Rhythm: regular rate and regular rhythm Neurologic moves all extremities Psychiatric Orientation: alert and oriented x 3 Testing Laboratory Results 02/18/20 07:21 02/18/20 07:21 Hemoglobin A1c 5.8 % (4.5-5.6) H 02/15/20 04:31 Urine Color Dark Yellow 02/14/20 22:45 Urine Appearance Clear (Clear) 02/14/20 22:45 Urine pH 5.0 (4.5-7.5) 02/14/20 22:45 Ur Specific [place] > 1.045 (1.000-1.030) H 02/14/20 22:45 Urine Protein 2+ (Negative) H 02/14/20 22:45 Urine Glucose (UA) Negative (Negative) 02/14/20 22:45 Urine Ketones Negative (Negative) 02/14/20 22:45 Urine Nitrite Negative (Negative) 02/14/20 22:45 Ur Leukocyte Esterase Negative (Negative) 02/14/20 22:45 Urine WBC (Auto) 1-5 /hpf (0-5) 02/14/20 22:45 Urine RBC (Auto) 0-4 /hpf (0-4) 02/14/20 22:45 U Hyaline Cast (Auto) 1-5 /lpf (0-5) 02/14/20 22:45 U Epithel Cells (Auto) >30 /lpf (0-5) H 02/14/20 22:45 Urine Bacteria (Auto) Negative (Negative) 02/14/20 22:45 02/14/20 20:07 Aerobic Blood Culture - Preliminary Blood No growth in Aerobic bottle after 48 hours. Anaerobic Blood Culture - Final 02/14/20 18:06 Aerobic Blood Culture - Preliminary Blood No growth in Aerobic bottle after 48 hours. Anaerobic Blood Culture - Preliminary No growth in Anaerobic bottle after 48 hours.
[2020-02-18] MEDS ORDERED: INDOMETHACIN 50 MG SUPP PR ONE (13:52)
[2020-02-18] MEDS ORDERED: PHENYLEPHRINE HCL 10 MG/ML VIAL ONE (13:56)
[2020-02-18] MEDS ORDERED: ePHEDrine sulfate 50 MG/ML AMP ONE (13:56)
--- NOTE | 2020-02-18 14:23 | Operative Report ---
Post Operative Report Pre & Post Diagnosis Operation Date: 02/16/20 11:30 Pre-Op Diagnosis: abdominal pain, nausea, vomiting Post-Op Diagnosis: abdominal pain, nausea, vomiting Operation Date: 02/18/20 07:55 Pre-Op Diagnosis: Choledocholithiasis Post-Op Diagnosis: Choledocholithiasis I identified the patient and participated in the time-out.: Yes Procedure Operation Date: 02/16/20 11:30 Actual Procedures p Upper Esophagogastroduodenoscopy, Endoscopic Ultrasonography Upper, Endoscopic Retrograde Cholangiopancreatography(Not Applicable) - Karishma Carballo DO Operation Date: 02/18/20 07:55 Actual Procedures p Endoscopic Retrograde Cholangiopancreatogram(Not Applicable) - Belle Mcdonald MD Surgeon Belle Mcdonald MD Enamel Machine Operator none Estimated Blood Loss 0 Findings See Below (CBD stone and sludge removed, stent placed) Specimens None Description of Procedure ERCP I attest to the content of the Intraoperative Record and any orders documented therein. Any exceptions are noted below.
--- NOTE | 2020-02-18 14:42 | GI REPORT ---
Patient Name: Krystina Chase Procedure Date: 02/18/2020 1:26 PM Date of : 1955 Admit Type: Inpatient Age: 64 Gender: Female Attending MD: Belle Mcdonald MD Procedure: ERCP Providers: Belle Mcdonald MD Referring MD: Bakari Cruz, Humza Herring, Karismha Carballo DO Indications: Prior failed Endoscopic Retrograde Cholangiopancreatography, Abnormal endoscopic ultrasound of the biliary system, Bile duct stone on magnetic resonance cholangiopancreatography, For therapy of bile duct stone(s), Elevated liver enzymes. Medicines: General Anesthesia Complications: No immediate complications. Estimated Blood Loss: Estimated blood loss: none. Procedure: Pre-Anesthesia Assessment: - Prior to the procedure, a History and Physical was performed, and patient medications, allergies and sensitivities were reviewed. The patient's tolerance of previous anesthesia was reviewed. - The risks and benefits of the procedure and the sedation options and risks were discussed with the patient. All questions were answered and informed consent was obtained. - Patient identification and proposed procedure were verified prior to the procedure by the physician and the nurse. The procedure was verified in the procedure room. - Pre-procedure physical examination revealed no contraindications to sedation. After obtaining informed consent, the scope was passed under direct vision. Throughout the procedure, the patient's blood pressure, pulse, and oxygen saturations were monitored continuously. The Scope was introduced through the mouth, and advanced to the duodenum and used to inject contrast into the bile duct. The ERCP was accomplished without difficulty. The patient tolerated the procedure well. Findings: A pancreatic stent was visible on the forming machine adjuster film. The esophagus was successfully intubated under direct vision. The scope was advanced to a normal major papilla in the descending duodenum without detailed examination of the pharynx, larynx and associated structures, and upper GI tract. The upper GI tract was grossly normal. One plastic pancreatic stent originating in the pancreatic duct was emerging from the major papilla. The major papilla was on the rim of a diverticulum. Biliary sphincterotomy was made with a monofilament needle knife over a pancreatic stent using ERBE electrocautery. There was no post-sphincterotomy bleeding. A 0.035 inch straight standard wire was passed into the biliary tree. The Fusion OMNI sphincterotome was passed over the guidewire and the bile duct was then deeply cannulated. Contrast was injected. I personally interpreted the bile duct images. Ductal flow of contrast was adequate. Image quality was adequate. Contrast extended to the main bile duct. Opacification of the entire biliary tree was successful. The maximum diameter of the ducts was 8 mm. The biliary sphincterotomy was extended with a monofilament traction (standard) sphincterotome using ERBE electrocautery. There was no post-sphincterotomy bleeding. The biliary tree was swept with a 12 mm balloon starting at the bifurcation. Sludge was swept from the duct. One stone was removed. No stones remained. One 10 Fr by 8 cm plastic biliary stent with a single external flap and a single internal flap was placed into the common bile duct. Bile flowed through the stent. The stent was in good position. Indomethacin 100 mg was given via suppository to decrease the risk of post-ERCP pancreatitis (PEP). Impression: - Choledocholithiasis was found. Complete removal was accomplished by biliary sphincterotomy and balloon extraction. - One plastic biliary stent was placed into the common bile duct. Recommendation: - [facility]. - Avoid NSAIDs for 5 days. - Clear liquid diet. - IV Hydration and ABx. - Surgery evaluation to decide if patient is a surgical candidate for Lap perri. - Repeat ERCP in 4 weeks to remove biliary stent, at that time will also perform an EUS guided gallbladder drainage using an Axios stent if the patient is deemed a nonsurgical candidate. Belle Mcdonald MD 02/18/2020 2:42:26 PM This report has been signed electronically. Note Initiated On: 02/18/2020 1:26 PM Number of Addenda: 0 I attest to the content of the Intraoperative Record and orders documented therein, exceptions below {[id number]}
[2020-02-18] MEDS ORDERED: LACTATED RINGER'S 1,000 ML IV SCH (14:45)
--- NOTE | 2020-02-18 14:45 | Fluoroscopy Report ---
[place] ERCP biliary ductal CLINICAL HISTORY: Duct exploration and stent placement COMPARISON STUDY: 02/16/2020 FLUOROSCOPY TIME: 101 seconds. NUMBER OF FLUOROSCOPIC IMAGES: 9 FINDINGS: The first image demonstrates a pigtail stent. Contrast was instilled into the common bile d uct. A balloon catheter was swept through the duct. The cystic duct was opacified. The final image de monstrates placement of a biliary enteric stent. IMPRESSION: Fluoroscopic spot images during ERCP in which a biliary enteric stent was placed ACT 112: Negative or not required by law. Electronically signed by: Hunter Lacy M.D. 02/18/2020 2:43 PM
[2020-02-18] MEDS: ONDANSETRON INJ 2 MG/ML 2 ML VIAL IV PRN (14:48)
--- NOTE | 2020-02-18 15:11 | Anesthesiology Progress Note ---
Date of Service February 18, 2020 Anesthesia Post Procedure Vital Signs Vital Signs: Temp Pulse Pulse Resp BP BP Pulse Ox 02/18/20 15:00 36.9 C 80 17 117/71 99 02/18/20 14:50 79 19 115/69 99 02/18/20 14:40 80 19 122/73 100 02/18/20 13:18 36.6 C 71 16 133/83 93 02/18/20 10:59 36.8 C 73 19 142/81 H 96 02/18/20 07:37 78 02/18/20 06:32 36.5 C 75 17 129/74 92 02/18/20 03:41 36.5 C 77 17 120/75 92 02/17/20 23:16 37.4 C 76 17 132/81 95 02/17/20 23:00 80 02/17/20 19:20 37.2 C 72 19 130/89 95 02/17/20 15:19 72 Transfer of Care Handoff Completed per policy Notes Mental Status: alert / awake / arousable Patient Amnestic to Procedure: Yes Nausea / Vomiting: adequately controlled Pain: adequately controlled Airway Patency, RR, SpO2: stable & adequate BP & HR: stable & adequate Hydration State: stable & adequate Anesthetic Complications: no major complications apparent
--- NOTE | 2020-02-18 15:28 | Surgery Consultation ---
Date of Consultation February 18, 2020 Assessment & Plan (1) Choledocholithiasis: This is a 64y F with a PMH of ovarian ca with peritoneal carcinomatosis, HTN, and CKD who presented to the ED on 02/14/20 as referred by her oncologist for electrolyte abnormalities & nausea/vomiting. Since admission workup revealed possible evidence of choledocholithiasis. She underwent ERCP on 02/15 without successful cannulation of the CBD and then again on 02/17 where choledocholithiasis was found biliary sphincterotomy and balloon extraction was able to be performed. Today labs revealed WBC: 9, Tbilil: 1(1.2), Db: 0.4, AST: 56, ALT: 34, Alkp: 159. After ERCP patient reports no abdominal pain, but has some mild generalized discomfort to palpation. On imaging there is no concerns for cholecystitis. After review of patient's medical history we do not believe she is a surgical candidate for cholecystectomy at this time given her h/o ovarian ca with peritoneal carcinomatosis. She recently underwent paracentesis on 02/12 where >6L of ascitic fluid was removed. After discussion with GI they may be able to perform EUS guided gallbladder drainage using an axios stent in the near future. Plan of care was discussed with the patient who expressed understanding. Patient was seen and examined with Dr. Hernandez. We will sign off at this time, please call with any questions/concerns. Supervising Physician Co-Signing Physician Notes I personally saw and evaluated the patient with Trisha Downing PA-C and agree with the assessment and plan. 64yo female with choledocholithiasis, metastatic ovarian CA with carcinomatosis -She is actively on chemotherapy and no signs of cholecystitits -Would not recommend cholecystectomy due to her co-morbidities and need for continued chemotherapy -Discussed with GI and they will be able to place Axios stent to drain GB at a later date History of Present Illness Attending Physician: Humza Herring MD History of Present Illness This is a 64y F with a PMH of ovarian ca with peritoneal carcinomatosis, HTN, and CKD who presented to the ED on 02/14/20 as referred by her oncologist for electrolyte abnormalities & nausea/vomiting. The patient was admitted under medicine service with GI consultation. On a CT a/p there was concern for cholelithiasis, prompting an MRCP which showed a possible 4 mm filling defect seen within the distal common bile duct. GI attempted an ERCP on 02/15 and despite multiple attempts could not cannulate the CBD. An EUS thereafter did reveal + choledocholithiasis with stones/sludge. Today an ERCP was again attempted with success and biliary sphincterotomy & balloon extraction was performed with removal of stone/sludge. When discussing with patient she currently denies any abdominal pain, fevers/chills. Surgery was consulted for consideration of cholecystectomy. Allergies Allergy/AdvReac Type Severity Reaction Status Date / Time castor oil Allergy Severe ANAPHYLAXIS Verified 02/13/20 12:13 paclitaxel Allergy Severe ANAPHYLAXIS Verified 02/13/20 12:13 Ethanol Allergy Severe ANAPHYLAXIS Uncoded 02/13/20 12:13 Home Medications Medication Instructions Recorded Confirmed Type aspirin [Aspir-81] 81 mg PO DAILY 02/14/20 02/14/20 History atenolol 25 mg PO DAILY 02/14/20 02/14/20 History esomeprazole magnesium 20 mg PO DAILY 02/14/20 02/14/20 History furosemide [Lasix] 40 mg PO DAILY 02/14/20 02/14/20 History levocetirizine 5 mg PO PM 02/14/20 02/14/20 History ondansetron 8 mg PO Q8H PRN 02/14/20 02/14/20 History prochlorperazine maleate 10 mg PO Q6H PRN 02/14/20 02/14/20 History [Compazine] Patient History Medical History Anemia CKD (chronic kidney disease), stage III HTN (hypertension) 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 Ovarian cancer Surgical History History of colonoscopy History of exploratory laparotomy History of total abdominal hysterectomy and bilateral salpingo-oophorectomy Family History Grandmother Cancer Father Hypertension Mother Stroke Social History Smoking Status: Current every day smoker Tobacco Type: Cigarettes Second Hand Exposure: No; Do You Dip or Chew Tobacco: No; Tobacco Cessation Education Requested by Patient: No Hx Alcohol Use: No Hx Substance Use: No Preferred Language: Korean Communication Ability: Effective Detective Lieutenant Required: No Beliefs That Will Affect Care: None Current Living Situation: Spouse Other Information That Helps Us Care for You: No Feels Safe at Home: Yes Safety Concerns: Feels Safe At This Time Assistive Devices: None Review of Systems Constitutional: no fever and no chills Gastrointestinal: + nausea; no abdominal pain Physical Exam Physical Exam: awake/alert Constitutional: well developed, well nourished, cooperative and comfortable; no acute distress Respiratory: normal respiratory effort Gastrointestinal (Abdomen): Inspection/Auscultation: + abdomen distended (mild) Percussion/Palpation: + abdomen tender (mild generalized discomfort to palpation) and abdomen soft Skin: no jaundice [facility] Data [facility] Vital Signs (Past 12 Hours) Vital Signs Temp Pulse Pulse Resp BP BP Pulse Ox 02/18/20 15:10 36.9 C 80 19 116/68 97 02/18/20 15:00 36.9 C 80 17 117/71 99 02/18/20 14:50 79 19 115/69 99 02/18/20 14:40 80 19 122/73 100 02/18/20 13:18 36.6 C 71 16 133/83 93 02/18/20 10:59 36.8 C 73 19 142/81 H 96 02/18/20 07:37 78 02/18/20 06:32 36.5 C 75 17 129/74 92 02/18/20 03:41 36.5 C 77 17 120/[address] angio chest PE protocol, CT abd pelvis oral and IV con CT DOSE: 709.45 mGy.cm HISTORY: 64 years-old Female with PE. Acute shortness of breath with chest pain, nausea, vomiting acute generalized abdominal pain. History of ovarian cancer. TECHNIQUE: Multiple CTA images of the chest were obtained after the intravenous administration of 120 ml Optiray 320. Coronal and sagittal MIPS were obtained from the axial data set and were submitted for review. All measurements were obtained according to NASCET criteria. CT abdomen and pelvis with IV and oral contrast was also conducted. A dose lowering technique was utilized adhering to the principles of ALARA. COMPARISON: Chest radiograph of same day, CT chest, abdomen and pelvis 07/13/2017. FINDINGS: CTA: Heart is upper limits of normal in size. Right IJ [id number] catheter distal tip terminates within the inferior SVC. Mixed plaque of the thoracic aorta without aneurysm or dissection. No pulmonary emboli identified. CT CHEST: Multinodular thyroid redemonstrated. Nodules on the right measure up to 1.7 cm. No adenopathy by CT size criteria. No pneumothorax or pleural effusion. Moderate bronchial wall thickening with multifocal mucus plugging. Minimal mosaic attenuation with intermixed groundglass densities suggest atelectasis with air trapping. Additionally, there are subtle patchy nondependent groundglass densities of the basal right lower lobe. There are no suspicious pulmonary nodules or masses identified. Soft tissues are unremarkable. Degenerative changes of the shoulders and spine. CT ABDOMEN/PELVIS: There is no pneumatosis or pneumoperitoneum. Unchanged appearance of the spleen. Moderate generalized pancreatic atrophy. Unremarkable adrenal glands. Scattered hepatic hypodensities measuring up to 11 mm within the left hepatic lobe are unchanged suggestive of probable cysts. Linear calcifications adjacent to the left portal vein in the senthil hepatis are new from prior. Hepatic and portal veins appear to be patent. Mildly distended gallbladder with layering intraluminal debris suggestive of sludge versus cholelithiasis. No biliary ductal dilation. Bilateral renal cysts measure up to 2.1 cm on the right. Numerous bilateral renal hypodensities are too small to characterize. No hydronephrosis. Large renal sinus cyst on the right. Hysterectomy. Decompressed urinary bladder. Peritoneal calcifications are noted. Plaque of the abdominal aorta without a neurysm. There is no new adenopathy. Small hiatal hernia with mild distal esophageal wall thickening. Moderate wall thickening of the gastric antrum. No bowel obstruction. There is moderate to marked diffuse wall thickening with mucosal hyperemia throughout the small bowel. Mild wall thickening is also noted within the majority of the large bowel along with partial distention. The appendix is not definitively seen. Small volume of abdominal pelvic ascites has decreased in amount from comparison. Scattered omental and peritoneal calcifications. Loculated fluid versus hypodense lesion posterior to the mid left spleen measuring 2.1 cm is unchanged. Degenerative changes of the spine, pelvis and hips. No new suspicious osseous lesions. IMPRESSION: 1. No evidence of pulmonary thromboembolic disease. 2. Moderate bronchial wall thickening suggestive of bronchitis versus reactive airway disease with mucous plugging, mild atelectasis and air trapping. 3. Minimal groundglass patchy opacities of the basal right lower lobe are suggestive of a nonspecific infectious or inflammatory pneumonitis. 4. Moderate to marked diffuse wall thickening involving numerous fluid-filled loops of small bowel are suggestive of a nonspecific enteritis. 5. Wall thickening of the gastric antrum may be secondary to partial distention versus gastritis. 6. Small volume of abdominal pelvic ascites has decreased from comparison. 7. Numerous peritoneal and omental calcifications suggest areas of treated disease. 8. Probable cholelithiasis. 9. Additional findings as above. ACT 112: Negative or not required by law. The above report was generated using voice recognition software. It may contain grammatical, syntax or spelling errors. Electronically signed by: Zion Gross M.D. 02/14/2020 8:23 PM MR MRCP HISTORY: Vomiting. evaluation for cbd stones TECHNIQUE: MRCP of the abdomen was performed without contrast according to standard departmental protocol. COMPARISON STUDY: Abdominal ultrasound 02/15/2020. Abdomen and pelvis CT 02/14/2020. FINDINGS: Small amount of ascites. Diffusely thickened small bowel which is fluid-filled and mildly distended measuring up to 4.2 cm in diameter. This is similar to the prior study. T2 hyperintense lesions seen within the liver and kidneys likely represent cysts. No hydronephrosis. Stable 2 cm subcapsular cystic focus abutting the spleen. No gallbladder wall thickening. No retroperitoneal lymphadenopathy. The main portal vein appears patent. The distal main pancreatic duct is normal in course and caliber. The proximal end pancreatic carcinoma visualized. Possible small filling defect seen within the distal common bile duct best seen on image 58 of series 6. This measures 4 mm and could represent a small stone. However, there is no significant bile duct dilatation. IMPRESSION: 1. Possible 4 mm filling defect seen within the distal common bile duct. However, there is no upstream dilatation. Consider ERCP to exclude the possibil ity of a nonobstructing distal common bile duct stone. 2. Small amount of ascites, unchanged. 3. Diffusely thickened small bowel which is fluid-filled and mildly distended. This is similar to the prior study and favors a nonspecific enteritis. A partial bowel obstruction cannot be excluded. 4. No gallbladder wall thickening. No gallstones. ACT 112: Negative or not required by law. Electronically signed by: Celestine Marshall M.D. 02/15/2020 6:53 PM PG Care Time/CCT Total # of Minutes Spent Total Time Spent with Patient: Total time spent is greater than 50% in coordination of care (as documented) at patient's floor/unit and/or counseling patient: Coding Level of Care Code 04681 Initial Inpt Care Lvl 1 Diagnoses Choledocholithiasis K80.50
[2020-02-18] MEDS: POTASSIUM CHLORIDE 20 MEQ, MAGNESIUM SULFATE 50% 1 GM in D5W AND 1/2NSS 1,000 ML IV SCH (23:53)
[2020-02-19] MEDS: PIPERACILLIN/TAZOBACTAM 3.375 GM in DEXTROSE 5% 100 ML IV SCH ×3 (00:59→15:55)
[2020-02-19 07:05] LABS: Basophils # (auto) 0.01 K/uL (0-0.2); Basophils % (auto) 0.1 %; Eosinophils # (auto) 0.12 K/uL (0-0.5); Eosinophils % (auto) 1.2 %; Hematocrit (blood only) 29.1 % (37-47); Hemoglobin 9.3 g/dL (12.0-16.0); Lymphocytes # (auto) 1.48 K/uL (1.2-3.4); Lymphocytes % (auto) 14.6 %; Mean Corpuscular Hemoglobin 32.7 pg (25-34); Mean Corpuscular Volume 102.5 fL (80-100); Mean Platelet Volume 9.9 fL (7.4-10.4); Monocytes % (auto) 14.8 %; Neutrophils # (auto) 6.91 K/uL (1.4-6.5); Neutrophils % (auto) 68.3 %; Platelet Count 325 K/uL (130-400); RDW Standard Deviation 78.7 fL (36.4-46.3); Red Blood Count 2.84 M/uL (4.2-5.4); White Blood Count 10.12 K/uL (4.8-10.8)
--- NOTE | 2020-02-19 07:14 | Anesthesiology Progress Note ---
Date of Service February 19, 2020 Anesthesia Post Procedure Vital Signs Vital Signs: Temp Pulse Pulse Pulse Resp BP BP 02/19/20 03:02 36.4 C L 77 16 123/78 02/18/20 23:32 37.0 C 75 18 107/65 02/18/20 19:28 36.5 C 75 20 114/73 02/18/20 16:15 36.5 C 76 18 121/73 02/18/20 15:45 36.7 C 80 18 123/72 02/18/20 15:30 36.9 C 81 12 118/70 02/18/20 15:20 36.9 C 75 15 114/69 02/18/20 15:10 36.9 C 80 19 116/68 02/18/20 15:00 36.9 C 80 17 117/71 02/18/20 14:50 79 19 115/69 02/18/20 14:40 80 19 122/73 02/18/20 13:18 36.6 C 71 16 133/83 02/18/20 10:59 36.8 C 73 19 142/81 H 02/18/20 07:37 78 Pulse Ox 02/19/20 03:02 95 02/18/20 23:32 94 02/18/20 19:28 94 02/18/20 16:15 94 02/18/20 15:45 94 02/18/20 15:30 93 02/18/20 15:20 93 02/18/20 15:10 97 02/18/20 15:00 99 02/18/20 14:50 99 02/18/20 14:40 100 02/18/20 13:18 93 02/18/20 10:59 96 02/18/20 07:37 Notes Mental Status: alert / awake / arousable and participated in evaluation Nausea / Vomiting: adequately controlled Pain: adequately controlled Airway Patency, RR, SpO2: stable & adequate BP & HR: stable & adequate Hydration State: stable & adequate
[2020-02-19 07:26] LABS: Anisocytosis Present
[2020-02-19 07:36] LABS: Albumin Level 1.9 gm/dl (3.4-5.0); BUN Creatinine Ratio 7.1 (10-20); Bilirubin Direct 0.4 mg/dl (0-0.2); Calcium 7.9 mg/dl (8.5-10.1); Creatinine Clr Calc Pharmacy 57.7 ml/min; Est GFR (African American) 62.4; Est GFR (Non-African American) 53.8; Magnesium 1.8 mg/dl (1.8-2.4); Potassium 4.8 mmol/L (3.5-5.1)
[2020-02-19 07:39] LABS: Albumin Globulin Ratio 0.5 (0.9-2); Bilirubin,Total 0.8 mg/dl (0.2-1); Globulin 3.8 gm/dl (2.5-4.0); Total Protein 5.7 gm/dl (6.4-8.2)
[2020-02-19] MEDS: NICOTINE 21 MG/24 HR TDSY TD SCH (08:25)
[2020-02-19] MEDS: ENOXAPARIN INJ 40 MG/0.4 ML SYR SQ SCH (08:27)
[2020-02-19] MEDS: ATENOLOL 25 MG TABLET PO SCH (08:29)
[2020-02-19] MEDS: POTASSIUM CHLORIDE 20 MEQ, MAGNESIUM SULFATE 50% 1 GM in D5W AND 1/2NSS 1,000 ML IV SCH (10:20)
[2020-02-19] MEDS: PANTOprazole 40 MG in SYRINGE 0 ML IV SCH (10:21)
--- NOTE | 2020-02-19 10:23 | Gastroenterology Progress Note ---
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 Doing well. - Regular diet. - OK for DC from a GI standpoint. - After D'C follow up will be arranged by our office. Plan is for ERCP in 6 wks for pancreatic stent removal and likely for placement of a gallbladder to small bowel axios stent to allow continual, permanent draining of gallbladder stones and sludge. Admission and Anticipated Discharge Date Admission Date: February 14, 2020 Supervising Physician Co-Signing Physician Notes I performed a history and physical examination of the patient today, including specifically on physical exam - soft abdomen. I have discussed the patient's management with the advanced practitioner. Please refer to the nurse practitioner's note for the documented findings and plan of care. Doing well. Plan for EUS with Axios at [facility] in a month. Subjective 64, female met ovarian CA on chemo who is post procedure day #1 from ERCP for choledocholithiasis. Biliary sphincterotomy and sweeping of the bile duct for removal of stones/sludge, pancreatic stent placed. This morning pt feels well, has been up ambulating in room and completed morning self care. Ate a regular consistency diet for breakfast this morning and feels well after. No nausea since Tuesday. LFTs mildly elevated, stable. Passing flatus, but no BM since procedure yesterday. No abd pain. Review of Systems 2 Review of Systems: ROS: Gen: Denies weakness, fevers, weight loss Eyes: No eye redness, or pain, no recent vision changes Resp: No SOB, no cough Cardio: No palpitations/irregular beats, no chest pain GI: As per HPI : Denies pain on urination Skin: No jaundice, itching or new rashes Physical Exam Constitutional: WD/WN, vitals as above well nourished and average body habitus Eyes: PERRL, conjunctivae normal, anicteric sclerae ENMT: external ear and nose normal, oropharynx normal Neck: trachea midline, no thyromegaly Respiratory: normal respiratory effort, lungs clear to auscultation Cardiovascular: RRR, no murmur, no edema Gastrointestinal (Abdomen): normal bowel sounds, soft, nontender, no hepatosplenomegaly Skin: no rashes, warm and dry Neurologic: PERRL, EOMI, accommodation nl, no face palsy, no dysarthria Psychiatric: A+Ox3, euthymic affect Results & Data ([facility]) Vital Signs (Past 12 Hours) Vital Signs Temp Pulse Pulse Resp BP BP Pulse Ox 02/19/20 08:15 36.8 C 77 18 133/85 99 02/19/20 03:02 36.4 C L 77 16 123/78 95 02/18/20 23:32 37.0 C 75 18 107/65 94
[2020-02-19] MEDS ORDERED: MAGNESIUM SULFATE / D5W 1 GM/100 ML BAG IV ONE (13:30)
--- NOTE | 2020-02-19 15:41 | Hospitalist Progress Note ---
Date of Service February 19, 2020 Assessment & Plan (1) Abdominal pain with vomiting: History of ovarian Ca with peritoneal mets, undergoing chemotherapy. History of malignant ascites, s/p paracentesis 02/13/20 (cytology + for ovarian Ca). Presented with abdominal pain, nausea, vomiting. Afebrile at time of presentation. Tachycardia. Hemodynamically stable. WBC at time of admission 12,590. Procalcitonin 0.47. Total bilirubin 0.9, AST 95, ALT 59, alk phos 181. CT abdomen & pelvis: "Moderate to marked diffuse wall thickening involving numerous fluid-filled loops of small bowel are suggestive of a nonspecific enteritis. Wall thickening of the gastric antrum may be secondary to partial distention versus gastritis. Small volume of abdominal pelvic ascites has decreased from comparison. Numerous peritoneal and omental calcifications suggest areas of treated disease. Probable cholelithiasis." Started on IV antibiotic therapy with piperacillin / tazobactam. GI consulted. Diagnostic considerations included choledocholithiasis, enteritis, chemo-induced N&V. US abdomen: trace ascites MRCP: "1. Possible 4 mm filling defect seen within the distal common bile duct. However, there is no upstream dilatation. Consider ERCP to exclude the possibility of a nonobstructing distal common bile duct stone. 2. Small amount of ascites, unchanged. 3. Diffusely thickened small bowel which is fluid-filled and mildly distended. This is similar to the prior study and favors a nonspecific enteritis. A partial bowel obstruction cannot be excluded. 4. No gallbladder wall thickening. No gallstones." EUS: "There was dilation in the common bile duct which measured up to 7-8 mm. One stone and some sludge was visualized endosonographically in the common bile duct. Hyperechoic material consistent with sludge was visualized endosonographically in the gallbladder body. There was no evidence of significant pathology in the left lobe of the liver. There was no sign of significant pathology in the entire pancreas. Ascites (consistent with known malignant ascites) was found on endosonographic examination of the peritoneal cavity. No specimens collected." ERCP: "The major papilla was adjacent to a diverticulum. The major papilla appeared congested. One pancreatic stent was placed into the ventral pancreatic duct." WBC at time of admission 12,590 >> 9290. Received piperacillin / tazobactam for possible cholangitis. Repeat ERCP with removal of CBD stone and CBD stent placement successfully performed by Dr. Mcdonald on 02/17. Surgical consultation was obtained; it was felt that cholecystectomy should not be pursued because of peritoneal carcinomatosis. Axios stent placement anticipated at time of CBD stent removal. (2) Pulmonary infiltrate: Experienced some chest discomfort and SOB at time of presentation. D-dimer was elevated. No infiltrates appreciated on chest x-ray. CTA chest: "No evidence of pulmonary thromboembolic disease. Moderate bronchial wall thickening suggestive of bronchitis versus reactive airway disease with mucous plugging, mild atelectasis and air trapping. Minimal groundglass patchy opacities of the basal right lower lobe are suggestive of a nonspecific infectious or inflammatory pneumonitis." No significant cough. Maintaining good oxygenation. May have aspirated due to N&V. SARS-CoV-2 Ag & PCR negative. Receiving IV piperacillin / tazobactam to cover possible aspiration pneumonia as well as possible abdominal infection. Discharged on amoxicillin / clavulanic acid. (3) Elevated d-dimer: D-dimer 1610. CTA chest neg for PE. Venous duplex lower extremities negative for DVT. (4) Hypokalemia: Serum K at time of admission 3.1. Received replacement. K day of discharge was 4.8. Continue replacement. Discharge on KCl 20 mEq BID. Follow. (5) Hypomagnesemia: Mg at time of admission 0.6. Received replacement. Mg day of discharge was 1.8. Continue replacement. Discharge on Mg chloride 64 mg BID. Follow. (6) Hypocalcemia: Calcium at time of admission 7.1 with albumin of 2.5. Corrected calcium 8.3. Received calcium replacement. Calcium day of discharge was 7.9. Ionized calcium day of discharge was 1.08. Continue replacement. Discharge on calcium carbonate (TUMS) 500 mg BID + vitamin D. Follow. (7) HTN (hypertension): Hemodynamically stable. Continue atenolol. (8) CKD (chronic kidney disease), stage III: Baseline creatinine around 1.1. Serum creatinine at time of admission 1.37. Creatinine today = 1.07. Maintain adequate hydration. Follow. (9) COVID-19 ruled out: SARS-CoV-2 Ag + PCR negative on 02/13. 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 (11) Non-sustained ventricular tachycardia: 7 beat run of VT day of discharge, asymptomatic. Marked electrolyte abnormalities at time of admission, essentially corrected by discharge. LVEF was normal by echo 2 years ago. Continue electrolyte replacement and follow labs. Follow-up echo recommended, pt prefers to scheduled as outpatient. (12) DVT prophylaxis: Initially received SQ enoxaparin. Enoxaparin held for invasive procedures. SCD's (13) Discharge planning issues: Discharged to home. Internal Medicine follow-up with Dr. Sifuentes. Hematology / Medical Oncology follow-up with Dr. Bakari Cruz. GI follow-up with Dr. Mcdonald. Admission and Anticipated Discharge Date Admission Date: February 14, 2020 Subjective Recheck for multiple problems. Feels well and would like to go home. Mild nausea after eating solids for lunch, but GI symptoms much better. No abdominal pain. 7 beat run of asymptomatic VT this morning. Ambulating in hallway without difficulty. Physical Exam Constitutional: no acute distress Eyes: + anicteric sclerae Respiratory: normal respiratory effort, lungs clear to auscultation Cardiovascular: Rate/Rhythm: regular rate and regular rhythm Vessels: no JVD Extremities: + edema (trace-1+ pretibial); no calf tenderness Gastrointestinal (Abdomen): normal bowel sounds, soft, nontender, no hepatosplenomegaly Musculoskeletal: Extremities: no cyanosis Skin: no rashes, warm and dry Psychiatric: Orientation: alert and oriented x 3 Results & Data Results & Data ([facility]) Vital Signs (Past 12 Hours) Vital Signs Temp Pulse Pulse Resp BP BP Pulse Ox 02/19/20 15:17 36.5 C 70 19 155/88 H 97 02/19/20 11:27 36.5 C 71 18 125/76 96 02/19/20 08:15 36.8 C 77 18 133/85 99 Laboratory Results 02/19/20 06:33 02/19/20 06:33
[2020-02-19] MEDS ORDERED: CETIRIZINE HCL 10 MG TABLET PO SCH (21:00)
--- NOTE | 2020-02-21 11:32 | Discharge Summary ---
Date of Service Date of Admission: 02/14/20 Date of Discharge: 02/19/20 Admission HPI Per Admitting Provider This is a 64-year-old female who has significant past medical history of ovarian cancer status post SIMONE with BSO, peritoneal carcinomatosis, HTN, CKD stage III, chemo-induced neuropathy who presents to ED secondary to vomiting x1 day and referred by oncology secondary to abnormal labs. She follows Dr. Cruz for ovarian cancer in which she is currently on gemcitabine once weekly x2 weeks with a week off. She was to undergo chemotherapy today, but felt unwell. She had therapeutic paracentesis yesterday secondary to malignant ascites in which overall went well. In the rate supervisor at approximately 3:30 AM she developed abdominal pain and vomiting. She has vomited approximately 9-10 times. Denies any bilious vomiting or hematemesis. Did not take any of her medications today and has been unable to tolerate any food, but has been drinking water. She presented to oncology office for lab work which revealed electrolyte abnormalities including hypomagnesemia and hypokalemia and was referred to ED for further evaluation. Her last episode of vomiting was prior to arrival and currently feels mildly improved. She complains of feeling nauseated and generalized abdominal pain. Pain waxes and wanes and feels related to paracentesis yesterday. Currently pain 0/10 at rest, but gets worse with movement or touching. Has not tried anything to improve pain. Antiemetics help nausea. Has never experienced before. Her last paracentesis was approximately 2 years ago. She denies fever, chills, sweats, lightheadedness, dizziness, chest pain, shortness of breath, palpitations, diarrhea, melena, hematochezia, dysuria, increased urgency or frequency with urination. Her last bowel movement was this morning and it was normal for her. Other than today despite chemo she feels she has been otherwise eating and drinking well. In ED patient remained hemodynamically stable initially, but during my examination became tachycardic in the 130s. Lab work notable for magnesium 0.6, BUN 27, creatinine 1.37, K3.0, albumin 2.5, corrected calcium 8.3, H&H 11.1 and 34.0, WBC 12.59k. Principal Diagnosis choledocholithiasis OTHER ACUTE / NEW DIAGNOSES: possible pneumonia hypokalemia hypomagnesemia hypocalcemia non-sustained ventricular tachycardia Discharge Data Allergies Allergy/AdvReac Type Severity Reaction Status Date / Time castor oil Allergy Severe ANAPHYLAXIS Verified 02/13/20 12:13 paclitaxel Allergy Severe ANAPHYLAXIS Verified 02/13/20 12:13 Ethanol Allergy Severe ANAPHYLAXIS Uncoded 02/13/20 12:13 Consultations 02/14/20 15:42 ED Decision to Admit Stat 02/14/20 17:41 Consult Gastroenterology Routine 02/16/20 17:45 Burn CD for patient Routine 02/18/20 14:45 Consult General Surgery Routine Procedures Performed Operation Date: 02/16/20 11:30 Actual Procedures p Upper Esophagogastroduodenoscopy, Endoscopic Ultrasonography Upper, Endoscopic Retrograde Cholangiopancreatography(Not Applicable) - Karishma Carballo DO Operation Date: 02/18/20 07:55 Actual Procedures p Endoscopic Retrograde Cholangiopancreatogram(Not Applicable) - Belle Mcdonald MD Ordered Studies 02/14/20 16:57 US venous doppler LE BI Stat 02/14/20 18:00 CT angio chest PE protocol Stat 02/14/20 18:18 CT abd pelvis oral and IV con Stat 02/15/20 11:00 US abdomen limited Routine 02/15/20 17:14 MR MRCP Urgent 02/16/20 11:30 FL ERCP biliary ductal Routine 02/16/20 11:41 US upper EUS PACS images Routine 02/18/20 13:30 FL ERCP biliary ductal Routine Hospital Course (1) Abdominal pain with vomiting: History of ovarian Ca with peritoneal mets, undergoing chemotherapy. History of malignant ascites, s/p paracentesis 02/13/20 (cytology + for ovarian Ca). Presented with abdominal pain, nausea, vomiting. Afebrile at time of presentation. Tachycardia. Hemodynamically stable. WBC at time of admission 12,590. Procalcitonin 0.47. Total bilirubin 0.9, AST 95, ALT 59, alk phos 181. CT abdomen & pelvis: "Moderate to marked diffuse wall thickening involving numerous fluid-filled loops of small bowel are suggestive of a nonspecific enteritis. Wall thickening of the gastric antrum may be secondary to partial distention versus gastritis. Small volume of abdominal pelvic ascites has decreased from comparison. Numerous peritoneal and omental calcifications suggest areas of treated disease. Probable cholelithiasis." Started on IV antibiotic therapy with piperacillin / tazobactam. GI consulted. Diagnostic considerations included choledocholithiasis, enteritis, chemo-induced N&V. US abdomen: trace ascites MRCP: "1. Possible 4 mm filling defect seen within the distal common bile duct. However, there is no upstream dilatation. Consider ERCP to exclude the possibili ty of a nonobstructing distal common bile duct stone. 2. Small amount of ascites, unchanged. 3. Diffusely thickened small bowel which is fluid-filled and mildly distended. This is similar to the prior study and favors a nonspecific enteritis. A partial bowel obstruction cannot be excluded. 4. No gallbladder wall thickening. No gallstones." EUS: "There was dilation in the common bile duct which measured up to 7-8 mm. One stone and some sludge was visualized endosonographically in the common bile duct. Hyperechoic material consistent with sludge was visualized endosonographically in the gallbladder body. There was no evidence of significant pathology in the left lobe of the liver. There was no sign of significant pathology in the entire pancreas. Ascites (consistent with known malignant ascites) was found on endosonographic examination of the peritoneal cavity. No specimens collected." ERCP: "The major papilla was adjacent to a diverticulum. The major papilla appeared congested. One pancreatic stent was placed into the ventral pancreatic duct." WBC at time of admission 12,590 >> 9290. Received piperacillin / tazobactam for possible cholangitis. Repeat ERCP with removal of CBD stone and CBD stent placement successfully performed by Dr. Mcdonald on 02/17. Surgical consultation was obtained; it was felt that cholecystectomy should not be pursued because of peritoneal carcinomatosis. Axios stent placement anticipated at time of CBD stent removal. (2) Pulmonary infiltrate: Experienced some chest discomfort and SOB at time of presentation. D-dimer was elevated. No infiltrates appreciated on chest x-ray. CTA chest: "No evidence of pulmonary thromboembolic disease. Moderate bronchial wall thickening suggestive of bronchitis versus reactive airway disease with mucous plugging, mild atelectasis and air trapping. Minimal groundglass patchy opacities of the basal right lower lobe are suggestive of a nonspecific infectious or inflammatory pneumonitis." No significant cough. Maintaining good oxygenation. May have aspirated due to N&V. SARS-CoV-2 Ag & PCR negative. Receiving IV piperacillin / tazobactam to cover possible aspiration pneumonia as well as possible abdominal infection. Discharged on amoxicillin / clavulanic acid. (3) Elevated d-dimer: D-dimer 1610. CTA chest neg for PE. Venous duplex lower extremities negative for DVT. (4) Hypokalemia: Serum K at time of admission 3.1. Received replacement. K day of discharge was 4.8. Continue replacement. Discharge on KCl 20 mEq BID. Follow. (5) Hypomagnesemia: Mg at time of admission 0.6. Received replacement. Mg day of discharge was 1.8. Continue replacement. Discharge on Mg chloride 64 mg BID. Follow. (6) Hypocalcemia: Calcium at time of admission 7.1 with albumin of 2.5. Corrected calcium 8.3. Received calcium replacement. Calcium day of discharge was 7.9. Ionized calcium day of discharge was 1.08. Continue replacement. Discharge on calcium carbonate (TUMS) 500 mg BID + vitamin D. Follow. (7) HTN (hypertension): Hemodynamically stable. Continue atenolol. (8) CKD (chronic kidney disease), stage III: Baseline creatinine around 1.1. Serum creatinine at time of admission 1.37. Creatinine today = 1.07. Maintain adequate hydration. Follow. (9) COVID-19 ruled out: SARS-CoV-2 Ag + PCR negative on 02/13. 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 (11) Non-sustained ventricular tachycardia: 7 beat run of VT day of discharge, asymptomatic. Marked electrolyte abnormalities at time of admission, essentially corrected by discharge. LVEF was normal by echo 2 years ago. Continue electrolyte replacement and follow labs. Follow-up echo recommended, pt prefers to scheduled as outpatient. (12) DVT prophylaxis: Initially received SQ enoxaparin. Enoxaparin held for invasive procedures. SCD's (13) Discharge planning issues: Discharged to home. Internal Medicine follow-up with Dr. Sifuentes. Hematology / Medical Oncology follow-up with Dr. Bakari Cruz. GI follow-up with Dr. Mcdonald. Total Time Total Time Spent Total Time Spent (In Minutes): 45 Discharge Plan Discharge Items Patient Disposition: Home - Self-Care Reason For Visit: nausea and vomiting Discharge Diagnosis: nausea and vomiting low electrolytes (potassium, magnesium, calcium) bile stone in common bile duct possible pneumonia Activity: As commented below Activity Comment: Gradually increase activity as tolerated. Non-emergency contact: Primary Care Provider, Hospitalist, Corporate Human Resources Manager and Oncologist Call non-emergency contact if: you have any medication questions, your symptoms worsen and your temperature is above 101 Follow-up/Referrals: Bakari Cruz MD [Surgeon] - Doug Sifuentes DO [Primary Care Provider] - (02/22/2020 3:00 PM Doug Sifuentes, General Internal Medicine [facility] ) Belle Mcdonald MD [Hospitalist] - Diet: Heart Healthy, Low Fiber and Low Fat Addtl Attending Provider Instructions: MEDICATION CHANGES: potassium chloride 20 mEq twice a day calcium carbonate (TUMS) 500 mg twice a day magnesium chloride 64 mg twice a day vitamin D 1000 units daily amoxicillin / clavulanic acid (Augmentin) 875 mg twice a day with food SUMMARY OF TEST RESULTS: CT of abdomen and endoscopic ultrasound showed bile stone in bile duct. CT of chest: no blood clots possible pneumonia Potassium, magnesium, and calcium levels were low. COVID test was negative on 02/14/20. RECOMMENDATIONS FOR FOLLOW-UP: Please ask Dr. Sifuentes to schedule follow-up echocardiogram for you. Bile duct and pancreatic stents to be removed by [facility] in 4-6 weeks. They should contact you with appointment. OTHER INSTRUCTIONS: Seek medical attention if you have: * temperature above 101 * chest pain or trouble breathing * abdominal pain, nausea, vomiting * diarrhea, dark stools or bloody stools * any unanswered questions or concerns Call 911 if symptoms are severe. Please take good care of yourself. Call if you have any questions or problems. You can reach a [facility] hospitalist on duty at [facility] 24 hours a day by calling [phone]. My cell # is [phone]. Pending Studies at Discharge: No Stand-Alone Forms: My [facility], Smoking Cessation Medications and DC Order Prescriptions: New magnesium chloride 64 mg tablet,delayed release (DR/EC) 64 mg PO BID Qty: 60 RF: 1 calcium carbonate [Tums [place]hers] 200 mg calcium (500 mg) tablet,chewable 200 mg PO BID Qty: 60 RF: 12 cholecalciferol (vitamin D3) 25 mcg (1,000 unit) capsule 1,000 unit PO DAILY Qty: 30 RF: 12 amoxicillin-pot clavulanate [Augmentin] 875-125 mg tablet 1 tab PO BID Qty: 10 RF: 0 potassium chloride 20 mEq tablet extended release 20 meq PO BID Qty: 60 RF: 1 Continued furosemide [Lasix] 40 mg Tablet 40 mg PO DAILY RF: 0 atenolol 25 mg Tablet 25 mg PO DAILY RF: 0 prochlorperazine maleate [Compazine] 10 mg Tablet 10 mg PO Q6H PRN (Reason: Nausea) RF: 0 aspirin 81 mg Tablet,Delayed Release (Dr/Ec) 81 mg PO DAILY RF: 0 ondansetron 8 mg Tablet,Disintegrating 8 mg PO Q8H PRN (Reason: Nausea) RF: 0 levocetirizine 5 mg Tablet 5 mg PO PM RF: 0 esomeprazole magnesium 20 mg Tablet,Delayed Release (Dr/Ec) 20 mg PO DAILY RF: 0 Discharge Orders: Discharge Order (Routine); Ordered 02/19/20 Ordered By: Humza Herring Admission Data Admit Date/Time: 02/14/20 16:19 Attending Provider: Humza Herring Admit Provider: Ja Sargent Primary Care Provider: Doug Sifuentes Other Providers: Ja Sargent ; Johnny Montelongo ; Dennis Ellis ; Jamie Arndt ; Cristofer Richard ; Connor Jameson Jr ; Cheikh Corea ; Kenton Tobar ; Trisha Downing ; Gustavo Hernandez ; Bridger Baer Other Interventions: Discharge Summary Assessment (RN) Last Done: 02/19/20 16:31
== END 2020-02-19 17:41 | disposition home or self-care (01) | DRG 445 ==
LOC: ED 14:38 → SUATTDRO 16:19 → 2S 16:19

== ENCOUNTER 2020-05-05 14:09 | Inpatient (IN) ==
[2020-05-05] MEDS ORDERED: ONDANSETRON INJ 2 MG/ML 2 ML VIAL IV STA ×2 (15:24→19:00)
[2020-05-05] MEDS ORDERED: SODIUM CHLORIDE 0.9% 1000ML 1,000 ML IV SCH ×2 (15:30→17:15)
--- NOTE | 2020-05-05 15:32 | Emergency Department Note ---
History of Present Illness General Chief complaint: Vomiting Stated complaint: UNCONTROLLED VOMITING Time Seen by Provider: 05/05/20 15:07 History of Present Illness Maximum Pain Intensity: 4 This is a 64-year-old female with a history of malignancy currently on chemotherapy presents to the emergency department via private vehicle with complaints of "uncontrolled vomiting". The patient notes that she was evaluated here back in February 2020 and notes that she was diagnosed with a gallstone lodged in the bile duct and states that she had a stent placed April 02 at [facility] by Dr. Mcdonald. Patient notes that she has been doing well since that time. She then notes return of very similar symptoms last night. She began with right upper quadrant/epigastric abdominal pain spasm that then prompted vomiting. She notes large amounts of vomiting since that time and cannot keep down fluids or food. She is worried by dehydration noting that she has lost much more fluid than she can keep down/in. She rates her overall discomfort at the right upper quadrant region is a 4/10. She denies any fevers, chills, chest pain or shortness of breath. Patient notes that her oncologist is Dr. Cruz. Of additional note, the patient notes that she did have laboratory studies performed earlier today just before noon time at [facility]. Home Medications Medication Instructions Recorded Confirmed Type aspirin 81 mg PO DAILY 02/14/20 05/05/20 History atenolol 50 mg PO DAILY 02/14/20 05/05/20 History esomeprazole magnesium 20 mg PO DAILY 02/14/20 05/05/20 History furosemide [Lasix] 80 mg PO DAILY 02/14/20 05/05/20 History ondansetron 8 mg PO Q8H PRN 02/14/20 05/05/20 History prochlorperazine maleate 10 mg PO Q6H PRN 02/14/20 05/05/20 History [Compazine] potassium chloride 20 meq PO BID #60 tab 02/19/20 05/05/20 Rx levocetirizine [Xyzal] 5 mg PO DAILY 05/05/20 05/05/20 History magnesium chloride 64 mg PO QID 05/05/20 05/05/20 History Allergies Allergy/AdvReac Type Severity Reaction Status Date / Time castor oil Allergy Severe ANAPHYLAXIS Verified 05/05/20 16:06 paclitaxel Allergy Severe ANAPHYLAXIS Verified 05/05/20 16:06 Ethanol Allergy Severe ANAPHYLAXIS Uncoded 05/05/20 16:06 Past Med/Surg History Medical History Anemia Choledocholithiasis CKD (chronic kidney disease), stage III HTN (hypertension) Hypocalcemia Hypokalemia Hypomagnesemia 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 Ovarian cancer Surgical History History of colonoscopy History of exploratory laparotomy History of total abdominal hysterectomy and bilateral salpingo-oophorectomy Family History Grandmother Cancer Father Hypertension Mother Stroke Social History Smoking Status: Current every day smoker Tobacco Type: Cigarettes Cigarettes Per Day: 20; Second Hand Exposure: No; Do You Dip or Chew Tobacco: No; Tobacco Cessation Education Requested by Patient: No Hx Alcohol Use: No Hx Substance Use: No Preferred Language: Urugu[place] Communication Ability: Effective Yard Goods Salesperson Required: No Beliefs That Will Affect Care: None Current Living Situation: Spouse Other Information That Helps Us Care for You: No Feels Safe at Home: Yes Safety Concerns: Feels Safe At This Time Assistive Devices: None Review of Systems A total of 10 systems reviewed and were otherwise negative Physical Exam Vital Signs Vital Signs - 24 hr 05/05/20 14:13 05/05/20 15:37 05/05/20 15:47 Temperature 36.7 C Temperature Source Temporal Artery Scan Pulse Rate 91 H 72 76 Pulse Rate [Left] Pulse Rate from SpO2 Sensor Pulse Rhythm Regular Pulse Strength Normal Respiratory Rate 16 20 19 Respiratory Effort / Characteristics Respiratory Depth Respiratory Pattern Regular Blood Pressure 108/69 Blood Pressure [Left Arm] Blood Pressure Mean 82 Blood Pressure Mean [Left Arm] Blood Pressure Position Sitting Blood Pressure Position [Left Arm] Pulse Oximetry 97 98 Oxygen Delivery Method Room Air Room Air Sepsis Recent Fever Within 48 Hours No Sepsis New/Unexplained Change in Mental Status N/A Sepsis Action Taken by Nursing No Action Required 05/05/20 15:50 05/05/20 16:00 05/05/20 16:04 Temperature Temperature Source Pulse Rate 107 H 75 74 Pulse Rate [Left] Pulse Rate from SpO2 Sensor 74 71 Pulse Rhythm Pulse Strength Respiratory Rate 29 H 18 23 Respiratory Effort / Characteristics Respiratory Depth Respiratory Pattern Blood Pressure 113/56 L Blood Pressure [Left Arm] Blood Pressure Mean 75 Blood Pressure Mean [Left Arm] Blood Pressure Position Blood Pressure Position [Left Arm] Pulse Oximetry 96 95 Oxygen Delivery Method Sepsis Recent Fever Within 48 Hours Sepsis New/Unexplained Change in Mental Status Sepsis Action Taken by Nursing 05/05/20 16:06 05/05/20 16:10 05/05/20 16:20 Temperature Temperature Source Pulse Rate 75 74 Pulse Rate [Left] 78 Pulse Rate from SpO2 Sensor 75 75 Pulse Rhythm Pulse Strength Respiratory Rate 22 27 H 17 Respiratory Effort / Characteristics Non-Labored Spontaneous Respiratory Depth Normal Respiratory Pattern Blood Pressure Blood Pressure [Left Arm] 113/56 L Blood Pressure Mean Blood Pressure Mean [Left Arm] 75 Blood Pressure Position Blood Pressure Position [Left Arm] Lying Pulse Oximetry 97 92 93 Oxygen Delivery Method Room Air Sepsis Recent Fever Within 48 Hours Sepsis New/Unexplained Change in Mental Status Sepsis Action Taken by Nursing 05/05/20 16:30 05/05/20 16:40 05/05/20 16:50 Temperature Temperature Source Pulse Rate 74 77 Pulse Rate [Left] Pulse Rate from SpO2 Sensor 77 74 77 Pulse Rhythm Pulse Strength Respiratory Rate 24 17 17 Respiratory Effort / Characteristics Respiratory Depth Respiratory Pattern Blood Pressure Blood Pressure [Left Arm] Blood Pressure Mean Blood Pressure Mean [Left Arm] Blood Pressure Position Blood Pressure Position [Left Arm] Pulse Oximetry 94 94 95 Oxygen Delivery Method Sepsis Recent Fever Within 48 Hours Sepsis New/Unexplained Change in Mental Status Sepsis Action Taken by Nursing 05/05/20 17:00 05/05/20 17:08 05/05/20 17:10 Temperature Temperature Source Pulse Rate 75 119 H 76 Pulse Rate [Left] Pulse Rate from SpO2 Sensor 75 120 H 76 Pulse Rhythm Pulse Strength Respiratory Rate 22 17 17 Respiratory Effort / Characteristics Respiratory Depth Respiratory Pattern Blood Pressure 129/86 Blood Pressure [Left Arm] Blood Pressure Mean 100 Blood Pressure Mean [Left Arm] Blood Pressure Position Blood Pressure Position [Left Arm] Pulse Oximetry 95 95 94 Oxygen Delivery Method Sepsis Recent Fever Within 48 Hours Sepsis New/Unexplained Change in Mental Status Sepsis Action Taken by Nursing 05/05/20 17:20 05/05/20 17:30 05/05/20 17:31 Temperature Temperature Source Pulse Rate 78 77 78 Pulse Rate [Left] Pulse Rate from SpO2 Sensor 78 77 77 Pulse Rhythm Pulse Strength Respiratory Rate 19 20 19 Respiratory Effort / Characteristics Respiratory Depth Respiratory Pattern Blood Pressure 134/78 Blood Pressure [Left Arm] Blood Pressure Mean 96 Blood Pressure Mean [Left Arm] Blood Pressure Position Blood Pressure Position [Left Arm] Pulse Oximetry 95 95 96 Oxygen Delivery Method Sepsis Recent Fever Within 48 Hours Sepsis New/Unexplained Change in Mental Status Sepsis Action Taken by Nursing 05/05/20 17:40 05/05/20 17:50 05/05/20 18:00 Temperature Temperature Source Pulse Rate 78 79 79 Pulse Rate [Left] Pulse Rate from SpO2 Sensor 78 79 80 Pulse Rhythm Pulse Strength Respiratory Rate 19 18 18 Respiratory Effort / Characteristics Respiratory Depth Respiratory Pattern Blood Pressure 116/63 Blood Pressure [Left Arm] Blood Pressure Mean 80 Blood Pressure Mean [Left Arm] Blood Pressure Position Blood Pressure Position [Left Arm] Pulse Oximetry 94 91 91 Oxygen Delivery Method Sepsis Recent Fever Within 48 Hours Sepsis New/Unexplained Change in Mental Status Sepsis Action Taken by Nursing 05/05/20 18:01 05/05/20 18:10 05/05/20 18:20 Temperature Temperature Source Pulse Rate 81 78 69 Pulse Rate [Left] Pulse Rate from SpO2 Sensor 81 73 72 Pulse Rhythm Pulse Strength Respiratory Rate 20 17 15 Respiratory Effort / Characteristics Respiratory Depth Respiratory Pattern Blood Pressure Blood Pressure [Left Arm] Blood Pressure Mean Blood Pressure Mean [Left Arm] Blood Pressure Position Blood Pressure Position [Left Arm] Pulse Oximetry 95 96 91 Oxygen Delivery Method Sepsis Recent Fever Within 48 Hours Sepsis New/Unexplained Change in Mental Status Sepsis Action Taken by Nursing 05/05/20 18:30 05/05/20 18:31 05/05/20 19:00 Temperature Temperature Source Pulse Rate 75 76 81 Pulse Rate [Left] Pulse Rate from SpO2 Sensor 75 75 82 Pulse Rhythm Pulse Strength Respiratory Rate 13 13 19 Respiratory Effort / Characteristics Respiratory Depth Respiratory Pattern Blood Pressure 127/81 128/73 Blood Pressure [Left Arm] Blood Pressure Mean 96 91 Blood Pressure Mean [Left Arm] Blood Pressure Position Blood Pressure Position [Left Arm] Pulse Oximetry 97 95 97 Oxygen Delivery Method Room Air Sepsis Recent Fever Within 48 Hours Sepsis New/Unexplained Change in Mental Status Sepsis Action Taken by Nursing 05/05/20 19:30 05/05/20 20:00 Temperature Temperature Source Pulse Rate 76 78 Pulse Rate [Left] Pulse Rate from SpO2 Sensor 76 77 Pulse Rhythm Pulse Strength Respiratory Rate 17 20 Respiratory Effort / Characteristics Respiratory Depth Respiratory Pattern Blood Pressure 126/75 108/72 Blood Pressure [Left Arm] Blood Pressure Mean 92 84 Blood Pressure Mean [Left Arm] Blood Pressure Position Blood Pressure Position [Left Arm] Pulse Oximetry 93 91 Oxygen Delivery Method Room Air Room Air Sepsis Recent Fever Within 48 Hours Sepsis New/Unexplained Change in Mental Status Sepsis Action Taken by Nursing VITAL SIGNS - Vital signs and nursing notes were reviewed. Stable and afebrile. GENERAL -64-year-old female appearing her stated age who is in no acute distress. Communicates well with provider and answers questions appropriately. SKIN - Without rashes. No meningeal or petechial rash. HEAD - NC/AT. EYES - PERRL with EOMI bilaterally. Sclera anicteric. EARS - No deformities of external structures noted on gross examination bilate rally. NOSE - Midline and without cyanosis. No epistaxis or purulent drainage noted. MOUTH/OROPHARYNX - Without perioral cyanosis. NECK - Neck with FROM. No nuchal rigidity. LUNGS - Chest wall symmetric without accessory muscle use, intercostals retractions, or central cyanosis. Normal vesicular breath sounds CTA B/L. No wheezes, rales, or rhonchi appreciated. CARDIAC - RRR with S1/S2. No murmur, rubs, or gallops appreciated. ABDOMEN - Abdominal contour normal without pulsations or visible masses. BS normoactive all four quadrants. No tenderness, palpable masses, hepatosplenomegaly, or ascites noted. EXTREMITIES - No clubbing or peripheral cyanosis. No pretibial edema present. +5/5 strength noted in UE/LE bilaterally. NEUROLOGIC - Cranial nerves II through XII grossly intact. PSYCH - A&O, and cooperates fully with examiner. Pt is very pleasant and interacts well with examiner. Course Administered Medications Heparin Sodium (Porcine) (Heparin Sod 5,000 Unit/0.5 Ml Vial) 5,000 units SQ Q8 AILEEN Stop: 06/04/20 22:36 Last Admin: 05/05/20 23:31 Dose: Not Given Documented by: [id number] Lactated Ringer's (Lr) 1,000 mls @ 80 mls/hr IV .[id number] ONE Stop: 05/06/20 08:57 Last Infusion: 05/05/20 23:29 Dose: 80 mls/hr Documented by: [id number] Infusion: 05/05/20 22:00 Dose: 0 mls/hr Documented by: [id number] Admin: 05/05/20 21:30 Dose: 80 mls/hr Documented by: [id number] Magnesium Sulfate/Dextrose (Magnesium Sulfate / D5w) 1 gm in 100 mls @ 50 mls/hr IV Q2H AILEEN Stop: 05/06/20 02:59 Last Admin: 05/06/20 01:13 Dose: 50 mls/hr Documented by: [id number] Infusion: 05/06/20 01:13 Dose: 50 mls/hr Documented by: [id number] Admin: 05/05/20 23:29 Dose: 50 mls/hr Documented by: [id number] Senna/Docusate Sodium (Docusate Sodium/Senna 50/8.6mg Tab) 1 tab PO BID AILEEN Stop: 06/04/20 22:36 Last Admin: 05/05/20 23:29 Dose: Not Given Documented by: [id number] Discontinued Medications Sodium Chloride (Nss 1000ml) 1,000 mls @ 999 mls/hr IV .Q1H1M AILEEN Stop: 05/05/20 16:30 Last Infusion: 05/05/20 17:04 Dose: 0 mls/hr Documented by: [id number] Admin: 05/05/20 16:00 Dose: 999 mls/hr Documented by: [id number] Sodium Chloride (Nss 1000ml) 1,000 mls @ 500 mls/hr IV .Q2H AILEEN Stop: 05/05/20 19:14 Last Infusion: 05/05/20 20:07 Dose: 0 mls/hr Documented by: [id number] Admin: 05/05/20 17:19 Dose: 500 mls/hr Documented by: [id number] Magnesium Sulfate/Dextrose (Magnesium Sulfate / D5w) 1 gm in 100 mls @ 100 mls/hr IV NOW STA Stop: 05/05/20 18:11 Last Infusion: 05/05/20 18:20 Dose: 0 mls/hr Documented by: [id number] Admin: 05/05/20 17:19 Dose: 100 mls/hr Documented by: [id number] Ondansetron HCl (Ondansetron Inj 2 Mg/Ml 2 Ml Vial) 4 mg IV NOW STA Stop: 05/05/20 15:25 Last Admin: 05/05/20 16:00 Dose: 4 mg Documented by: [id number] Ondansetron HCl (Ondansetron Inj 2 Mg/Ml 2 Ml Vial) 4 mg IV NOW STA Stop: 05/05/20 19:01 Last Admin: 05/05/20 19:08 Dose: 4 mg Documented by: [id number] Polyethylene Glycol (Polyethylene (Miralax) 17 Gm Pack) 17 gm PO NOW STA Stop: 05/05/20 22:38 Last Admin: 05/05/20 23:29 Dose: Not Given Documented by: [id number] Medical Decision Making Laboratory Data Result diagrams: 05/05/20 15:45 05/05/20 15:45 Lab Results 05/05/20 05/05/20 05/05/20 Range/Units 15:45 15:45 15:45 Sodium 141 (136-145) mmol/L Potassium 4.1 (3.5-5.1) mmol/L Chloride 103 (98-107) mmol/L Carbon Dioxide 27 (21-32) mmol/L Anion Gap 10.0 (3-11) BUN 27 H (7-18) mg/dl Creatinine 1.67 H (0.6-1.2) mg/dl Est Cr Clr Drug Dosing 36.6 ml/min Est GFR ( Amer) 36.8 Est GFR (Non-Af Amer) 31.8 BUN/Creatinine Ratio 15.9 (10-20) Glucose 96 (70-99) mg/dl Lactate 1.5 (0.4-2.0) mmol/L Calcium 9.2 (8.5-10.1) mg/dl Magnesium (1.8-2.4) mg/dl Total Bilirubin 0.4 (0.2-1) mg/dl AST 65 H (15-37) U/L ALT 73 (12-78) U/L Alkaline Phosphatase 152 H (45-117) U/L Troponin I < 0.015 (0-0.045) ng/ml Total Protein 7.4 (6.4-8.2) gm/dl Albumin 2.5 L (3.4-5.0) gm/dl Globulin 4.9 H (2.5-4.0) gm/dl Albumin/Globulin Ratio 0.5 L (0.9-2) Lipase 87 (73-393) U/L COVID-19 Eval Order SARS-CoV-2, RNA, NAAT (NEGATIVE) 05/05/20 05/05/20 05/05/20 Range/Units 15:45 19:11 19:11 Sodium (136-145) mmol/L Potassium (3.5-5.1) mmol/L Chloride (98-107) mmol/L Carbon Dioxide (21-32) mmol/L Anion Gap (3-11) BUN (7-18) mg/dl Creatinine (0.6-1.2) mg/dl Est Cr Clr Drug Dosing ml/min Est GFR ( Amer) Est GFR (Non-Af Amer) BUN/Creatinine Ratio (10-20) Glucose (70-99) mg/dl Lactate (0.4-2.0) mmol/L Calcium (8.5-10.1) mg/dl Magnesium 1.3 L (1.8-2.4) mg/dl Total Bilirubin (0.2-1) mg/dl AST (15-37) U/L ALT (12-78) U/L Alkaline Phosphatase (45-117) U/L Troponin I (0-0.045) ng/ml Total Protein (6.4-8.2) gm/dl Albumin (3.4-5.0) gm/dl Globulin (2.5-4.0) gm/dl Albumin/Globulin Ratio (0.9-2) Lipase (73-393) U/L COVID-19 Eval [id number] SARS-[facility]-2, RNA, NAAT NEGATIVE (NEGATIVE) Imaging Data Radiologist's Impression: KUB CLINICAL HISTORY: Stent placement. FINDINGS: 2 AP supine abdominal radiographs are correlated with abdominal CT dated 02/14/2020. There is a nonobstructed abdominal bowel gas pattern. Moderate fecal retention is noted in the colon. No evidence of intraperitoneal free air is seen on these supine views. A presumed common bile duct stent projects over the right upper quadrant. Calcification of the right upper quadrant are unchanged from previous. Small pill fragments likely project over the distal stomach. Phleboliths are noted in the pelvis. The skeletal structures are osteopenic and appear intact. There is moderate lumbosacral spondylosis. The lung bases are clear as imaged. IMPRESSION: 1. Nonobstructed bowel gas pattern. 2. A presumed common bile duct stent projects over the right upper quadrant. Electronically signed by: Tio Stapleton M.D. 05/05/2020 5:49 PM MDM Narrative Patient was seen and evaluated as above in room B7. Review was performed of nursing notes and vital signs. I did review pertinent previous visits and patient history. After obtaining a thorough history and physical examination the above work up was performed. Patient presents to us today with vomiting and some mild upper quadrant/epigastric abdominal pain that began last night. On arrival she is nontoxic. The patient notes that she currently is undergoing chemotherapy. Abdominal exam is benign. Laboratory studies were performed earlier today at 11:44 AM prior to arrival. I did have our pillowcase turner obtain the record and revealed: White blood cell count 8.64, red blood cell count 3.31, hemoglobin 11.3, hematocrit 34.1. Platelet count 430. The patient's CMP reveals a BUN of 25 and a creatinine of 1.5. Estimated GFR 36. Glucose 132. Sodium and potassium are normal. Alk phos 167. AST 71. ALT 68. Urinalysis reveals trace ketones and protein. It appears to be a contaminated sample noting many epithelial cells. Magnesium was also drawn and revealed a level of 1.2. Options of care were discussed with the patient. Port was accessed. I did review the patient's laboratory studies performed just prior to arrival at [facility] and I reviewed them extensively. I also reviewed the operative report from the stent placement in March. The patient was ordered IV fluids as well as IV Zofran. We discussed multiple imaging options and I also reached out to her GI specialist, Dr. Mcdonald and we reviewed the patient's presentation, history, laboratory studies. It was recommended to proceed with a KUB to check stent placement. He did review the images as well and the stent appears to be in good position. Patient was reevaluated after receiving the IV Zofran and fluids and was feeling tremendously better. P.o. fluid trial initiated. Unfortunately she began vomiting again. I ordered additional antiemetics. IV magnesium and fluids also were added to the regimen. The patient would prefer to be discharged home but understands that despite a ntiemetics here and with persistence of vomiting with p.o. fluid trial is amenable to staying and is agreeable to stay at this point. I did discuss this with the hospitalist. Please refer to further documentation regarding her stay. While in the department, I personally reevaluated the patient several times and each time the patient was found to be resting comfortably except for the one reassessment where she was vomiting and was provided subsequent antiemetics and decision was made to admit for further evaluation and management. Case was discussed with the attending physician. EKG reveals normal sinus rhythm at a rate of 76 bpm. There is no ectopy or ischemic change. QTc 438. QRS is 70. No ST elevation. An order was placed for continuous cardiac monitoring. The monitor shows a rate of 91 with sinus rhythm. I attest that I have personally reviewed the patient medication list. GCS: 15 In the evaluation and treatment of this patient the following differential diagnoses were entertained: MS, PE, pericarditis, costochondritis, bowel obstruction, cholangitis, pancreatitis, bowel obstruction, ileus, UTI, pyelonephritis, diverticulitis, gastritis, pneumomediastinum, among others. Impression & Plan Intractable vomiting with nausea, Hypomagnesemia Discharge Plan Visit Data Chief Complaint: Vomiting Stated Complaint: UNCONTROLLED VOMITING ED Provider: Leandro Garcia ED Midlevel Provider: Brayden Garcia Discharge Problem: Intractable vomiting with nausea, Hypomagnesemia Patient Disposition: Admitted As Inpatient Discharge Instructions Interventions: ED Discharge Assessment Last Done: 05/05/20 22:00
--- NOTE | 2020-05-05 16:34 | Electrocardiogram Report ---
Test Reason : Blood Pressure : / mmHG Vent. Rate : 076 BPM Atrial Rate : 076 BPM P-R Int : 128 ms QRS Dur : 070 ms QT Int : 390 ms P-R-T Axes : 023 025 010 degrees QTc Int : 438 ms Normal sinus rhythm Low voltage QRS Borderline ECG When compared with ECG of 14-FEB-2020 16:13, Premature atrial complexes are no longer Present Confirmed by Zacarias Jonhs ([id number]) on 05/05/2020 4:34:02 PM Referred By: Confirmed By:Zacarias Johns
[2020-05-05 16:37] LABS: Lipase 87 U/L (73-393); Troponin I < 0.015 ng/ml (0-0.045)
[2020-05-05] MEDS ORDERED: MAGNESIUM SULFATE / D5W 1 GM/100 ML BAG IV STA (17:12)
[2020-05-05 17:20] LABS: Albumin Level 2.5 gm/dl (3.4-5.0); BUN Creatinine Ratio 15.9 (10-20); Calcium 9.2 mg/dl (8.5-10.1); Creatinine Clr Calc Pharmacy 36.6 ml/min; Est GFR (African American) 36.8; Est GFR (Non-African American) 31.8; Potassium 4.1 mmol/L (3.5-5.1)
[2020-05-05 17:23] LABS: Albumin Globulin Ratio 0.5 (0.9-2); Bilirubin,Total 0.4 mg/dl (0.2-1); Globulin 4.9 gm/dl (2.5-4.0); Total Protein 7.4 gm/dl (6.4-8.2)
--- NOTE | 2020-05-05 17:51 | XRay Report ---
KUB CLINICAL HISTORY: Stent placement. FINDINGS: 2 AP supine abdominal radiographs are correlated with abdominal CT dated 02/14/2020. There is a nonobstructed abdominal bowel gas pattern. Moderate fecal retention is noted in the colon. No ev idence of intraperitoneal free air is seen on these supine views. A presumed common bile duct stent p rojects over the right upper quadrant. Calcification of the right upper quadrant are unchanged from p revious. Small pill fragments likely project over the distal stomach. Phleboliths are noted in the pe lvis. The skeletal structures are osteopenic and appear intact. There is moderate lumbosacral spondyl osis. The lung bases are clear as imaged. IMPRESSION: 1. Nonobstructed bowel gas pattern. 2. A presumed common bile duct stent projects over the right upper quadrant. Electronically signed by: Tio Stapleton M.D. 05/05/2020 5:49 PM
--- NOTE | 2020-05-05 20:21 | History & Physical Report ---
Date of Service May 05, 2020 Assessment & Plan (1) Abdominal pain: With nausea emesis symptoms hx ovarian cancer with peritoneal carcinomatosis ongoing chemotherapy, Rule out obstruction, UTI ARF, hypomagnesemia secondary to illness history NSVT as per records History chronic anemia, hemoglobin better than baseline likely secondary to hemoconcentration ongoing tobacco abuse. OBS GMF CT abdomen pelvis Further management pending CT results Baseline UA, monitor creatinine response to IVF replace electrolytes Nicotine patch DVT prophylaxis. Heparin subcu if no bleed on CT DNR Text document was generated using [employer] voice recognition software. It may contain grammatical or spelling errors. Kindly contact undersigned for clarification of any documentation item in question. History of Present Illness Chief Complaint: Nausea, emesis Primary Care Provider: Doug Sifuentes DO History obtained from patient and records. Medical history significant for ovarian cancer with peritoneal carcinomatosis ongoing chemotherapy, history NSVT as per records, chronic anemia (baseline hemoglobin 9), ongoing tobacco abuse. Last confinement February 2020 for abdominal pain and vomiting symptoms. ERCP done for CBD stone followed by stent placement. Cholecystectomy not pursued due to peritoneal carcinomatosis as per records. Subsequent ERCP with biliary stent removal and exchange done at [facility] last March 2020. Last night, patient noted mildly achy upper abdominal pain with emesis, no fever, no chills. Not a lot of abdominal pain today but lots of vomiting as per patient. No bowel movement. Denies chest pain, S OB. Patient seen at [facility] oncology office. Outpatient lab results today as follows : Hemoglobin 11.3, hematocrit 34, WBC 8, platelets 430 Serum sodium 141, potassium 4.2, chloride 101, CO2 27, BUN 25, creatinine 1.5, glucose 132, AST 71, ALT 68, alk phos 167, magnesium 1.2 Patient directed to ER for further evaluation. 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 Allergies Allergy/AdvReac Type Severity Reaction Status Date / Time castor oil Allergy Severe ANAPHYLAXIS Verified 05/05/20 16:06 paclitaxel Allergy Severe ANAPHYLAXIS Verified 05/05/20 16:06 Ethanol Allergy Severe ANAPHYLAXIS Uncoded 05/05/20 16:06 Home Medications Medication Instructions Recorded Confirmed Type aspirin 81 mg PO DAILY 02/14/20 05/05/20 History atenolol 50 mg PO DAILY 02/14/20 05/05/20 History esomeprazole magnesium 20 mg PO DAILY 02/14/20 05/05/20 History furosemide [Lasix] 80 mg PO DAILY 02/14/20 05/05/20 History ondansetron 8 mg PO Q8H PRN 02/14/20 05/05/20 History prochlorperazine maleate 10 mg PO Q6H PRN 02/14/20 05/05/20 History [Compazine] potassium chloride 20 meq PO BID #60 tab 02/19/20 05/05/20 Rx levocetirizine [Xyzal] 5 mg PO DAILY 05/05/20 05/05/20 History magnesium chloride 64 mg PO QID 05/05/20 05/05/20 History Past Med/Surg History Medical History Anemia Choledocholithiasis CKD (chronic kidney disease), stage III HTN (hypertension) Hypocalcemia Hypokalemia Hypomagnesemia 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 Ovarian cancer Surgical History History of colonoscopy History of exploratory laparotomy History of total abdominal hysterectomy and bilateral salpingo-oophorectomy Family History Grandmother Cancer Father Hypertension Mother Stroke Social History Smoking Status: Current every day smoker Tobacco Type: Cigarettes Cigarettes Per Day: 20; Second Hand Exposure: No; Do You Dip or Chew Tobacco: No; Tobacco Cessation Education Requested by Patient: No Hx Alcohol Use: No Hx Substance Use: No Preferred Language: Guamanian Communication Ability: Effective Medical Staff Coordinator Required: No Beliefs That Will Affect Care: None Current Living Situation: Spouse Other Information That Helps Us Care for You: No Feels Safe at Home: Yes Safety Concerns: Feels Safe At This Time Assistive Devices: None Review of Systems Review of Systems: As per HPI, all 10 systems reviewed, all other ROS negative Physical Exam Physical Exam: GENERAL: Comfortable, pleasant, no respiratory distress SKIN: Pallor , warm HEENT: Bespectacled, pale palpebral conjunctivae, no ptosis, dry buccal mucosa NECK : Supple, no tenderness CHEST : CTA, no tenderness HEART : RRR, no obvious murmurs ABDOMEN: Some distention, no overt tenderness EXTREMITIES : Minimal LE swelling, no LE tenderness, no other conspicuous deformities noted NEUROLOGIC : Coherent, no facial asymmetry, no other gross focality Results & Data Results & Data ([facility]) Vital Signs (Past 12 Hours) Vital Signs Temp Pulse Pulse Resp BP BP Pulse Ox 05/05/20 20:00 78 20 108/72 91 05/05/20 19:30 76 17 126/75 93 05/05/20 19:00 81 19 128/73 97 05/05/20 18:31 76 13 95 05/05/20 18:30 75 13 127/81 97 05/05/20 18:20 69 15 91 05/05/20 18:10 78 17 96 05/05/20 18:01 81 20 95 05/05/20 18:00 79 18 116/63 91 05/05/20 17:50 79 18 91 05/05/20 17:40 78 19 94 05/05/20 17:31 78 19 96 05/05/20 17:30 77 20 134/78 95 05/05/20 17:20 78 19 95 05/05/20 17:10 76 17 94 05/05/20 17:08 119 H 17 129/86 95 05/05/20 17:00 75 22 95 05/05/20 16:50 77 17 95 05/05/20 16:40 74 17 94 05/05/20 16:30 24 94 05/05/20 16:20 74 17 93 05/05/20 16:10 75 27 H 92 05/05/20 16:06 78 22 113/56 L 97 05/05/20 16:04 74 23 113/56 L 95 05/05/20 16:00 75 18 96 05/05/20 15:50 107 H 29 H 05/05/20 15:47 76 19 05/05/20 15:37 72 20 98 05/05/20 14:13 36.7 C 91 H 16 108/69 97 Laboratory Results Laboratory Results Sodium 141 mmol/L (136-145) 05/05/20 15:45 Potassium 4.1 mmol/L (3.5-5.1) 05/05/20 15:45 Chloride 103 mmol/L (98-107) 05/05/20 15:45 Carbon Dioxide 27 mmol/L (21-32) 05/05/20 15:45 Anion Gap 10.0 (3-11) 05/05/20 15:45 BUN 27 mg/dl (7-18) H 05/05/20 15:45 Creatinine 1.67 mg/dl (0.6-1.2) H 05/05/20 15:45 Est Cr Clr Drug Dosing 36.6 ml/min 05/05/20 15:45 Est GFR ( Amer) 36.8 05/05/20 15:45 Est GFR (Non-Af Amer) 31.8 05/05/20 15:45 BUN/Creatinine Ratio 15.9 (10-20) 05/05/20 15:45 Glucose 96 mg/dl (70-99) 05/05/20 15:45 Lactate 1.5 mmol/L (0.4-2.0) 05/05/20 15:45 Calcium 9.2 mg/dl (8.5-10.1) 05/05/20 15:45 Magnesium 1.3 mg/dl (1.8-2.4) L 05/05/20 15:45 Total Bilirubin 0.4 mg/dl (0.2-1) 05/05/20 15:45 AST 65 U/L (15-37) H 05/05/20 15:45 ALT 73 U/L (12-78) 05/05/20 15:45 Alkaline Phosphatase 152 U/L (45-117) H 05/05/20 15:45 Troponin I < 0.015 ng/ml (0-0.045) 05/05/20 15:45 Total Protein 7.4 gm/dl (6.4-8.2) 05/05/20 15:45 Albumin 2.5 gm/dl (3.4-5.0) L 05/05/20 15:45 Globulin 4.9 gm/dl (2.5-4.0) H 05/05/20 15:45 Albumin/Globulin Ratio 0.5 (0.9-2) L 05/05/20 15:45 Lipase 87 U/L (73-393) 05/05/20 15:45 COVID-19 Eval Order Covid19 IDNow [facility] 05/05/20 19:11 SARS-CoV-2, RNA, NAAT NEGATIVE (NEGATIVE) 05/05/20 19:11 Diagnostic Findings Chest x-ray : Mild cardiomegaly with no active disease in the chest. KUB x-ray: 1. Nonobstructed bowel gas pattern. 2. A presumed common bile duct stent projects over the right upper quadrant. EKG as per my interpretation : Rate 75, NSR, normal axis, no ischemia, low voltage
[2020-05-05] MEDS ORDERED: LACTATED RINGER'S 1,000 ML IV ONE (20:28)
--- NOTE | 2020-05-05 20:44 | XRay Report ---
SINGLE VIEW CHEST CLINICAL HISTORY: Renal failure. FINDINGS: An AP, portable, upright chest radiograph is compared to chest x-ray and chest CT dated 12/2019. A right internal jugular central venous infusion port is unchanged in position. The heart is enlarged. The pulmonary vasculature is noncongested. Chronic residual thickening is similar to previ ous. There is mild bibasilar atelectasis. The lungs and pleural spaces are otherwise clear. No pneumo thorax is seen. The skeletal structures are osteopenic. The bony thorax is grossly intact. IMPRESSION: Mild cardiomegaly with no active disease in the chest. ACT 112: Negative or not required by law. Electronically signed by: Tio Stapleton M.D. 05/05/2020 8:42 PM
[2020-05-05] MEDS ORDERED: traMADol HCL 50 MG TABLET PO PRN (22:37)
[2020-05-05] MEDS ORDERED: ACETAMINOPHEN 325 MG TAB PO PRN (22:37)
[2020-05-05] MEDS ORDERED: POLYETHYLENE (MIRALAX) 17 GM PACK PO STA (22:37)
[2020-05-05] MEDS ORDERED: PROMETHAZINE HCL 12.5 MG in SODIUM CHLORIDE 0.9% 50 ML IV PRN (22:37)
[2020-05-05] MEDS: MAGNESIUM SULFATE / D5W 1 GM/100 ML BAG IV SCH (23:29)
[2020-05-05] MEDS: DOCUSATE SODIUM/SENNA 50/8.6MG TAB PO SCH (23:29)
[2020-05-05] MEDS: HEPARIN SOD 5,000 UNIT/0.5 ML VIAL SQ SCH (23:31)
[2020-05-06] MEDS: MAGNESIUM SULFATE / D5W 1 GM/100 ML BAG IV SCH (01:13)
[2020-05-06] MEDS: HEPARIN SOD 5,000 UNIT/0.5 ML VIAL SQ SCH ×3 (05:39→20:35)
[2020-05-06 06:36] LABS: Basophils # (auto) 0.01 K/uL (0-0.2); Basophils % (auto) 0.2 %; Eosinophils # (auto) 0.09 K/uL (0-0.5); Eosinophils % (auto) 1.4 %; Hematocrit (blood only) 26.4 % (37-47); Hemoglobin 8.6 g/dL (12.0-16.0); Immature Granulocytes # (auto) 0.01 K/uL (0.00-0.02); Immature Granulocytes % (auto) 0.2 %; Lymphocytes # (auto) 1.26 K/uL (1.2-3.4); Lymphocytes % (auto) 19.1 %; Mean Corpuscular Hemoglobin 33.9 pg (25-34); Mean Corpuscular Hgb Conc 32.6 g/dL (32-36); Mean Corpuscular Volume 103.9 fL (80-100); Mean Platelet Volume 10.7 fL (7.4-10.4); Monocytes # (auto) 1.34 K/uL (0.11-0.59); Monocytes % (auto) 20.4 %; Neutrophils # (auto) 3.87 K/uL (1.4-6.5); Neutrophils % (auto) 58.7 %; Platelet Count 417 K/uL (130-400); RDW Coefficient of Variation 22.9 % (11.5-14.5); RDW Standard Deviation 75.7 fL (36.4-46.3); Red Blood Count 2.54 M/uL (4.2-5.4); White Blood Count 6.58 K/uL (4.8-10.8)
[2020-05-06 07:10] LABS: Albumin Level 2.1 gm/dl (3.4-5.0); BUN Creatinine Ratio 14.8 (10-20); Calcium 8.2 mg/dl (8.5-10.1); Creatinine Clr Calc Pharmacy 36.7 ml/min; Est GFR (African American) 37.4; Est GFR (Non-African American) 32.2; Magnesium 2.2 mg/dl (1.8-2.4); Potassium 3.9 mmol/L (3.5-5.1)
[2020-05-06 07:16] LABS: Albumin Globulin Ratio 0.5 (0.9-2); Bilirubin,Total 0.4 mg/dl (0.2-1); Globulin 3.9 gm/dl (2.5-4.0)
[2020-05-06 07:17] LABS: Anisocytosis Present
[2020-05-06] MEDS: ASPIRIN 81 MG ECTAB PO SCH (08:19)
[2020-05-06] MEDS: DOCUSATE SODIUM/SENNA 50/8.6MG TAB PO SCH ×2 (08:19→20:35)
[2020-05-06] MEDS: PANTOprazole 40 MG TAB PO SCH (08:20)
[2020-05-06] MEDS: NICOTINE 14 MG/24 HR PATCH TD SCH (08:20)
[2020-05-06] MEDS: ATENOLOL 25 MG TABLET PO SCH (08:20)
--- NOTE | 2020-05-06 08:30 | CT Scan Report ---
CT OF THE ABDOMEN AND PELVIS WITHOUT CONTRAST CLINICAL HISTORY: Abdominal pain and vomiting. Ovarian cancer. COMPARISON STUDY: CT of the abdomen and pelvis February 14, 2020. MRCP February 15, 2020. TECHNIQUE: Axial images of the abdomen and pelvis were obtained without IV contrast. Images were revi ewed in the axial, sagittal, and coronal planes. Automated exposure control was utilized for the richard dy. A dose lowering technique was utilized adhering to the principles of ALARA. FINDINGS: Visualized portions of the lower chest demonstrate a small right pleural effusion with asso ciated atelectasis. No pneumatosis, free air or portal venous gas is present. Evaluation of the abdom en and pelvis is suboptimal on this unenhanced examination. Pneumobilia is noted. The gallbladder is mildly distended. A small amount of gas within the gallbladder lumen is noted. A common bile duct fran nt is in place. A few hepatic lesions are unchanged. These are likely benign. Calcified peritoneal le sions appear similar to prior CT. Moderate ascites has increased. Note is again made of moderate wall thickening of multiple small bowel loops which was shown on several prior examinations. Small bowel dilatation is noted. This was not present on prior exam. Water attenuation bilateral renal lesions we re shown to reflect cysts on prior contrast enhanced CT. There is no hydronephrosis. No acute fractur e or suspicious lesion is identified within the visualized skeletal structures. IMPRESSION: 1. Increase in moderate abdominal and pelvic ascites since prior exam. Redemonstration of numerous pe ritoneal and omental calcifications which suggest treated disease. 2. Moderate wall thickening of multiple small bowel loops with mesenteric infiltration which has been shown on prior exams. This represents a nonspecific enteritis. Mild small bowel dilatation. A partia l small bowel obstruction cannot be excluded. 3. Suboptimal evaluation of the abdomen and pelvis on this unenhanced examination. 4. Common bile stent in place. Pneumobilia. Small amount gas within the gallbladder. ACT 112: Negative or not required by law. Electronically signed by: Eric Parks M.D. 05/06/2020 8:29 AM
[2020-05-06 09:20] LABS: Appearance Urine Clear (Clear); Bacteria Urine Automated Negative (Negative); Blood Urine Negative (Negative); Color Urine Dark Yellow; Epithelial Cell Urine Auto >30 /lpf (0-5); Glucose Urine UA Negative (Negative); Ketones Urine Negative (Negative); Leukocyte Esterase Urine Negative (Negative); Nitrite Urine Negative (Negative); Protein Urine 1+ (Negative); RBC Urine Automated 0-4 /hpf (0-4); Specific Gravity Urine 1.018 (1.000-1.030); Urobilinogen Urine Negative (Negative)
[2020-05-06 09:31] LABS: Bilirubin Urine 1+ (Negative)
--- NOTE | 2020-05-06 10:22 | Gastrointestinal Consultation ---
Date of Consultation May 06, 2020 Assessment & Plan (1) Abdominal pain: 64 year old female w/ metastatic ovarian CA w/ malignant ascites admitted w/ pain, nausea/vomiting CT w/ enteritis (likely chemo induced), ascites Check stool studies if diarrhea returns Therapeutic paracentesis, known malignant ascites but send cell count No albumin replacement needed No GI contraindication to D/C after paracentesis Thank you for allowing us to participate in the care of this patient. Please call with any acute changes, questions or concerns. Please see addendum below with additional recommendation from my supervising physician. Supervising Physician Co-Signing Physician Notes I performed a history and physical examination of the patient today, including specifically on physical exam - soft abdomen. I have discussed the patient's management with the advanced practitioner. Please refer to the nurse practitioner's note for the documented findings and plan of care. CT scan consistent with chemotherapy related enteritis. Already improved. Please do therapeutic tap. Recall GI if needed. History of Present Illness Reason for Consultation: ascites Requesting Physician: Frandy Attending Physician: Cristopher Wise MD History of Present Illness 64 year old female with metastatic ovarian CA recent ERCP with sphincterotomy and sweeping of the bile duct for removal of stones, sludge in the setting of metastatic ovarian/omental cancer admitted through the ED w/ nausea/vomiting - GI asked to evaluate abnormal imaging concerning for ascites/enteritis. Suggest diarrhea a few days after chemo last week. No black or bloody stools. Has had nausea/vomiting but is hungry. Abd fullness but no pain. Paracentesis 03/25/20: 2.9 L ascitic fluid Paracentesis 02/13/20: 6L off. Positive for malignant cells, metastatic adenocarcinoma CTA/04/27: . Increase in moderate abdominal and pelvic ascites since prior exam. Redemonstration of numerous peritoneal and omental calcifications which suggest treated disease. Moderate wall thickening of multiple small bowel loops with mesenteric infiltration which has been shown on prior exams. This represents a nonspecific enteritis. Mild small bowel dilatation. A partial small bowel obstruction cannot be excluded.Suboptimal evaluation of the abdomen and pelvis on this unenhanced examination. Common bile stent in place. Pneumobilia. Small amount gas within the gallbladder. Allergies Allergy/AdvReac Type Severity Reaction Status Date / Time castor oil Allergy Severe ANAPHYLAXIS Verified 05/05/20 16:06 paclitaxel Allergy Severe ANAPHYLAXIS Verified 05/05/20 16:06 Ethanol Allergy Severe ANAPHYLAXIS Uncoded 05/05/20 16:06 Home Medications Medication Instructions Recorded Confirmed Type aspirin 81 mg PO DAILY 02/14/20 05/05/20 History atenolol 50 mg PO DAILY 02/14/20 05/05/20 History esomeprazole magnesium 20 mg PO DAILY 02/14/20 05/05/20 History furosemide [Lasix] 80 mg PO DAILY 02/14/20 05/05/20 History ondansetron 8 mg PO Q8H PRN 02/14/20 05/05/20 History prochlorperazine maleate 10 mg PO Q6H PRN 02/14/20 05/05/20 History [Compazine] potassium chloride 20 meq PO BID #60 tab 02/19/20 05/05/20 Rx levocetirizine [Xyzal] 5 mg PO DAILY 05/05/20 05/05/20 History magnesium chloride 64 mg PO QID 05/05/20 05/05/20 History Patient History Medical History Anemia Choledocholithiasis CKD (chronic kidney disease), stage III HTN (hypertension) Hypocalcemia Hypokalemia Hypomagnesemia 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 Ovarian cancer Surgical History History of colonoscopy History of exploratory laparotomy History of total abdominal hysterectomy and bilateral salpingo-oophorectomy Family History Grandmother Cancer Father Hypertension Mother Stroke Social History Smoking Status: Current every day smoker Tobacco Type: Cigarettes Cigarettes Per Day: 20; Second Hand Exposure: No; Do You Dip or Chew Tobacco: No; Tobacco Cessation Education Requested by Patient: No Hx Alcohol Use: No Hx Substance Use: No Preferred Language: Greek Communication Ability: Effective Machine Pack Assembler Required: No Beliefs That Will Affect Care: None Current Living Situation: Spouse Other Information That Helps Us Care for You: No Feels Safe at Home: Yes Safety Concerns: Feels Safe At This Time Assistive Devices: None Review of Systems Constitutional: + weakness; no fever and no chills Respiratory: no cough, no change in sputum and no dyspnea on exertion Cardiovascular: no chest pain, no dyspnea and no orthopnea Gastrointestinal: + nausea and + vomiting; no abdominal pain, no hematemesis, no constipation, no blood in stools and no melena Physical Exam Constitutional: well developed, well nourished and + ill appearing (chronically ill); no acute distress Neck: trachea midline Respiratory: normal respiratory effort, lungs clear to auscultation Cardiovascular: RRR, no murmur, no edema Gastrointestinal (Abdomen): Percussion/Palpation: abdomen soft and + ascites; abdomen nontender, no guarding and abdomen not rigid Skin: no rashes, warm and dry Results & Data ([facility]) Vital Signs (Past 12 Hours) Vital Signs Temp Pulse Resp BP Pulse Ox 05/06/20 07:13 36.6 C 81 16 93/51 L 93 05/06/20 04:00 36.7 C 79 20 95/58 L 92 05/05/20 23:08 36.7 C 82 16 123/73 93 Laboratory Results 05/06/20 05/06/20 05/06/20 Range/Units 08:54 06:10 06:10 WBC 6.58 (4.8-10.8) K/uL RBC 2.54 L (4.2-5.4) M/uL Hgb 8.6 L (12.0-16.0) g/dL Hct 26.4 L (37-47) % MCV 103.9 H (80-100) fL MCH 33.9 (25-34) pg MCHC 32.6 (32-36) g/dL RDW Std Deviation 75.7 H (36.4-46.3) fL RDW Coeff of Ross 22.9 H (11.5-14.5) % Plt Count 417 H (130-400) K/uL MPV 10.7 H (7.4-10.4) fL Immature Gran % (Auto) 0.2 % Neut % (Auto) 58.7 % Lymph % (Auto) 19.1 % Sac % (Auto) 20.4 % Eos % (Auto) 1.4 % Baso % (Auto) 0.2 % Neut # (Auto) 3.87 (1.4-6.5) K/uL Lymph # (Auto) 1.26 (1.2-3.4) K/uL Sac # (Auto) 1.34 H (0.11-0.59) K/uL Eos # (Auto) 0.09 (0-0.5) K/uL Baso # (Auto) 0.01 (0-0.2) K/uL Immature Gran # (Auto) 0.01 (0.00-0.02) K/uL Hypersegmented Neuts 1+ Anisocytosis Present Sodium 143 (136-145) mmol/L Potassium 3.9 (3.5-5.1) mmol/L Chloride 107 (98-107) mmol/L Carbon Dioxide 27 (21-32) mmol/L Anion Gap 9.0 (3-11) BUN 25 H (7-18) mg/dl Creatinine 1.65 H (0.6-1.2) mg/dl Est Cr Clr Drug Dosing 36.7 ml/min Est GFR ( Amer) 37.4 Est GFR (Non-Af Amer) 32.2 BUN/Creatinine Ratio 14.8 (10-20) Glucose 82 (70-99) mg/dl Lactate (0.4-2.0) mmol/L Calcium 8.2 L (8.5-10.1) mg/dl Magnesium 2.2 (1.8-2.4) mg/dl Total Bilirubin 0.4 (0.2-1) mg/dl AST 48 H (15-37) U/L ALT 54 (12-78) U/L Alkaline Phosphatase 118 H (45-117) U/L Troponin I (0-0.045) ng/ml Total Protein 6.0 L (6.4-8.2) gm/dl Albumin 2.1 L (3.4-5.0) gm/dl Globulin 3.9 (2.5-4.0) gm/dl Albumin/Globulin Ratio 0.5 L (0.9-2) Lipase (73-393) U/L Urine Color Dark Yellow Urine Appearance Clear (Clear) Urine pH 5.0 (4.5-7.5) Ur Specific [place] 1.018 (1.000-1.030) Urine Protein 1+ H (Negative) Urine Glucose (UA) Negative (Negative) Urine Ketones Negative (Negative) Urine Blood Negative (Negative) Urine Nitrite Negative (Negative) Urine Bilirubin 1+ H (Negative) Urine Urobilinogen Negative (Negative) Ur Leukocyte Esterase Negative (Negative) Urine WBC (Auto) 1-5 (0-5) /hpf Urine RBC (Auto) 0-4 (0-4) /hpf U Hyaline Cast (Auto) 5-10 H (0-5) /lpf U Epithel Cells (Auto) >30 H (0-5) /lpf Urine Bacteria (Auto) Negative (Negative) COVID-19 Eval Order SARS-CoV-2, RNA, NAAT (NEGATIVE) 05/05/20 05/05/20 05/05/20 Range/Units 19:11 19:11 15:45 WBC (4.8-10.8) K/uL RBC (4.2-5.4) M/uL Hgb (12.0-16.0) g/dL Hct (37-47) % MCV (80-100) fL MCH (25-34) pg MCHC (32-36) g/dL RDW Std Deviation (36.4-46.3) fL RDW Coeff of Ross (11.5-14.5) % Plt Count (130-400) K/uL MPV (7.4-10.4) fL Immature Gran % (Auto) % Neut % (Auto) % Lymph % (Auto) % Sac % (Auto) % Eos % (Auto) % Baso % (Auto) % Neut # (Auto) (1.4-6.5) K/uL Lymph # (Auto) (1.2-3.4) K/uL Sac # (Auto) (0.11-0.59) K/uL Eos # (Auto) (0-0.5) K/uL Baso # (Auto) (0-0.2) K/uL Immature Gran # (Auto) (0.00-0.02) K/uL Hypersegmented Neuts Anisocytosis Sodium (136-145) mmol/L Potassium (3.5-5.1) mmol/L Chloride (98-107) mmol/L Carbon Dioxide (21-32) mmol/L Anion Gap (3-11) BUN (7-18) mg/dl Creatinine (0.6-1.2) mg/dl Est Cr Clr Drug Dosing ml/min Est GFR ( Amer) Est GFR (Non-Af Amer) BUN/Creatinine Ratio (10-20) Glucose (70-99) mg/dl Lactate (0.4-2.0) mmol/L Calcium (8.5-10.1) mg/dl Magnesium 1.3 L (1.8-2.4) mg/dl Total Bilirubin (0.2-1) mg/dl AST (15-37) U/L ALT (12-78) U/L Alkaline Phosphatase (45-117) U/L Troponin I (0-0.045) ng/ml Total Protein (6.4-8.2) gm/dl Albumin (3.4-5.0) gm/dl Globulin (2.5-4.0) gm/dl Albumin/Globulin Ratio (0.9-2) Lipase (73-393) U/L Urine Color Urine Appearance (Clear) Urine pH (4.5-7.5) Ur Specific [place] (1.000-1.030) Urine Protein (Negative) Urine Glucose (UA) (Negative) Urine Ketones (Negative) Urine Blood (Negative) Urine Nitrite (Negative) Urine Bilirubin (Negative) Urine Urobilinogen (Negative) Ur Leukocyte Esterase (Negative) Urine WBC (Auto) (0-5) /hpf Urine RBC (Auto) (0-4) /hpf U Hyaline Cast (Auto) (0-5) /lpf U Epithel Cells (Auto) (0-5) /lpf Urine Bacteria (Auto) (Negative) COVID-19 Eval Order Covid19 IDNow [facility] SARS-CoV-2, RNA, NAAT NEGATIVE (NEGATIVE) 05/05/20 05/05/20 05/05/20 Range/Units 15:45 15:45 15:45 WBC (4.8-10.8) K/uL RBC (4.2-5.4) M/uL Hgb (12.0-16.0) g/dL Hct (37-47) % MCV (80-100) fL MCH (25-34) pg MCHC (32-36) g/dL RDW Std Deviation (36.4-46.3) fL RDW Coeff of Ross (11.5-14.5) % Plt Count (130-400) K/uL MPV (7.4-10.4) fL Immature Gran % (Auto) % Neut % (Auto) % Lymph % (Auto) % Sac % (Auto) % Eos % (Auto) % Baso % (Auto) % Neut # (Auto) (1.4-6.5) K/uL Lymph # (Auto) (1.2-3.4) K/uL Sac # (Auto) (0.11-0.59) K/uL Eos # (Auto) (0-0.5) K/uL Baso # (Auto) (0-0.2) K/uL Immature Gran # (Auto) (0.00-0.02) K/uL Hypersegmented Neuts Anisocytosis Sodium 141 (136-145) mmol/L Potassium 4.1 (3.5-5.1) mmol/L Chloride 103 (98-107) mmol/L Carbon Dioxide 27 (21-32) mmol/L Anion Gap 10.0 (3-11) BUN 27 H (7-18) mg/dl Creatinine 1.67 H (0.6-1.2) mg/dl Est Cr Clr Drug Dosing 36.6 ml/min Est GFR ( Amer) 36.8 Est GFR (Non-Af Amer) 31.8 BUN/Creatinine Ratio 15.9 (10-20) Glucose 96 (70-99) mg/dl Lactate 1.5 (0.4-2.0) mmol/L Calcium 9.2 (8.5-10.1) mg/dl Magnesium (1.8-2.4) mg/dl Total Bilirubin 0.4 (0.2-1) mg/dl AST 65 H (15-37) U/L ALT 73 (12-78) U/L Alkaline Phosphatase 152 H (45-117) U/L Troponin I < 0.015 (0-0.045) ng/ml Total Protein 7.4 (6.4-8.2) gm/dl Albumin 2.5 L (3.4-5.0) gm/dl Globulin 4.9 H (2.5-4.0) gm/dl Albumin/Globulin Ratio 0.5 L (0.9-2) Lipase 87 (73-393) U/L Urine Color Urine Appearance (Clear) Urine pH (4.5-7.5) Ur Specific [place] (1.000-1.030) Urine Protein (Negative) Urine Glucose (UA) (Negative) Urine Ketones (Negative) Urine Blood (Negative) Urine Nitrite (Negative) Urine Bilirubin (Negative) Urine Urobilinogen (Negative) Ur Leukocyte Esterase (Negative) Urine WBC (Auto) (0-5) /hpf Urine RBC (Auto) (0-4) /hpf U Hyaline Cast (Auto) (0-5) /lpf U Epithel Cells (Auto) (0-5) /lpf Urine Bacteria (Auto) (Negative) COVID-19 Eval Order SARS-CoV-2, RNA, NAAT (NEGATIVE)
--- NOTE | 2020-05-06 13:43 | Hospitalist Progress Note ---
Date of Service May 06, 2020 Assessment & Plan (1) Abdominal pain: Nausea/vomiting on admission Recurrent ascites Nonspecific enteritis LUI on CKD stage III Covid 19 ruled out History of ovarian cancer with peritoneal carcinomatosis with ongoing chemotherapy History of nonsustained ventricular tachycardia History of chronic anemia History of hypertension Ongoing tobacco use Given findings on the CT abdomen/pelvis will consult gastroenterology. Patient currently on diet and tolerating well. Denies any further nausea or vomiting. However, have not had any bowel movement for the past 2 days but is passing flatus. LUI on CKD likely secondary to decreased p.o. intake and persistent vomiting, prerenal in nature. Continue with maintenance IV fluids. Blood and urine cultures are pending. Continue SALES ANALYTICS MANAGER aspirin, atenolol, omeprazole. Hold SALES ANALYTICS MANAGER furosemide 80 mg daily. Admission and Anticipated Discharge Date Admission Date: May 05, 2020 Subjective Doing okay this morning. Reports she feels okay nausea and vomiting is improved. Have not had bowel movement for the past 2 days passing flatus. Denies any chest pain or shortness of breath. Denies any abdominal pain. Denies any dysuria. Review of Systems Review of Systems: All systems reviewed & are unremarkable except as noted in HPI & below Physical Exam Physical Exam: General: A&Ox3 HENT: NCAT, MMM, EOMI Eyes: PERRLA Neck: Supple, normal range of motion CVS: normal rate and rhythm Resp: b/l good breath sounds Abdomen: Soft, distended nontender Extremities: No c/c/e Neuro: No gross focal deficits appreciated Skin: warm and dry MSK: nno joint swelling/erythema Results & Data Results & Data ([facility]) Vital Signs (Past 12 Hours) Vital Signs Temp Pulse Resp BP Pulse Ox 05/06/20 11:15 36.9 C 67 16 99/62 L 91 05/06/20 07:13 36.6 C 81 16 93/51 L 93 05/06/20 04:00 36.7 C 79 20 95/58 L 92
[2020-05-06] MEDS ORDERED: ONDANSETRON INJ 2 MG/ML 2 ML VIAL IV PRN (14:01)
[2020-05-06] MEDS: HEPARIN 100 UNIT/ML 5ML FLUSH FLUSH PRN (14:11)
--- NOTE | 2020-05-06 15:46 | Ultrasound Report ---
US abdomen ltd ascites CLINICAL HISTORY: Malignant ascites COMPARISON STUDY: CT scan dated 05/05/2020 FINDINGS: The patient was referred for therapeutic paracentesis. Only low volume ascites was present. There is unlikely that the patient would benefit from a therapeutic paracentesis. Findings were discussed with the patient. The findings were discussed with the attending physician. The patient returned to the [facility] and the paracentesis was not performed. IMPRESSION: 1. Low volume ascites, insufficient for planned therapeutic paracentesis ACT 112: Negative or not required by law. Electronically signed by: Hunter Lacy M.D. 05/06/2020 3:45 PM
[2020-05-06] MEDS: SODIUM CHLORIDE 0.9% 1000ML 1,000 ML IV SCH (16:06)
[2020-05-07] MEDS: SODIUM CHLORIDE 0.9% 1000ML 1,000 ML IV SCH (03:24)
[2020-05-07] MEDS: HEPARIN SOD 5,000 UNIT/0.5 ML VIAL SQ SCH ×2 (04:29→13:59)
[2020-05-07] MEDS: ASPIRIN 81 MG ECTAB PO SCH (08:15)
[2020-05-07] MEDS: DOCUSATE SODIUM/SENNA 50/8.6MG TAB PO SCH (08:15)
[2020-05-07] MEDS: ATENOLOL 25 MG TABLET PO SCH (08:15)
[2020-05-07] MEDS: NICOTINE 14 MG/24 HR PATCH TD SCH (08:15)
[2020-05-07] MEDS: PANTOprazole 40 MG TAB PO SCH (08:15)
--- NOTE | 2020-05-07 09:14 | Gastroenterology Progress Note ---
Date of Service May 07, 2020 Assessment & Plan (1) Abdominal pain: 64 year old female w/ metastatic ovarian CA w/ malignant ascites admitted w/ pain, nausea/vomiting CT w/ enteritis (likely chemo induced), ascites. Paracentesis not performed due to not enough fluid to tap safely Antiemetics PRN Check stool studies if diarrhea develops Therapeutic paracentesis, known malignant ascites but send cell count No albumin replacement needed No GI contraindication to D/C Thank you for allowing us to participate in the care of this patient. Please call with any acute changes, questions or concerns. Please see addendum below with additional recommendation from my supervising physician. Admission and Anticipated Discharge Date Admission Date: May 05, 2020 Supervising Physician Co-Signing Physician Notes I performed a history and physical examination of the patient today, including specifically on physical exam - soft abdomen. I have discussed the patient's management with the advanced practitioner. Please refer to the nurse practitioner's note for the documented findings and plan of care. Subjective Paracentesis cancelled No enough fluid to tap This AM still some nausea/vomiting Bowels unchanged No fever, chills, CP, SOB Review of Systems Constitutional: no fever, no chills and no fatigue Respiratory: no cough and no dyspnea Cardiovascular: no chest pain and no dyspnea Gastrointestinal: + nausea; no abdominal pain Physical Exam Constitutional: + ill appearing Neck: trachea midline Gastrointestinal (Abdomen): normal bowel sounds, soft, nontender, no hep atosplenomegaly Results & Data ([facility]) Vital Signs (Past 12 Hours) Vital Signs Temp Pulse Resp BP BP Pulse Ox 05/07/20 07:47 36.6 C 78 16 115/68 91 05/07/20 00:35 36.7 C 77 16 129/76 95 05/06/20 23:24 36.7 C 75 18 108/63 91 Laboratory Results 05/06/20 Range/Units 08:54 Urine Color Dark Yellow Urine Appearance Clear (Clear) Urine pH 5.0 (4.5-7.5) Ur Specific [place] 1.018 (1.000-1.030) Urine Protein 1+ H (Negative) Urine Glucose (UA) Negative (Negative) Urine Ketones Negative (Negative) Urine Blood Negative (Negative) Urine Nitrite Negative (Negative) Urine Bilirubin 1+ H (Negative) Urine Urobilinogen Negative (Negative) Ur Leukocyte Esterase Negative (Negative) Urine WBC (Auto) 1-5 (0-5) /hpf Urine RBC (Auto) 0-4 (0-4) /hpf U Hyaline Cast (Auto) 5-10 H (0-5) /lpf U Epithel Cells (Auto) >30 H (0-5) /lpf Urine Bacteria (Auto) Negative (Negative)
[2020-05-07] MEDS ORDERED: PROCHLORPERAZINE 10 MG in SYRINGE 8 ML IV PRN (11:12)
[2020-05-07] MEDS ORDERED: PROMETHAZINE HCL 12.5 MG in SODIUM CHLORIDE 0.9% 50 ML IV PRN (11:13)
--- NOTE | 2020-05-07 15:09 | Discharge Summary ---
Date of Service May 07, 2020 Admission HPI Per Admitting Provider History obtained from patient and records. Medical history significant for ovarian cancer with peritoneal carcinomatosis ongoing chemotherapy, history NSVT as per records, chronic anemia (baseline hemoglobin 9), ongoing tobacco abuse. Last confinement February 2020 for abdominal pain and vomiting symptoms. ERCP done for CBD stone followed by stent placement. Cholecystectomy not pursued due to peritoneal carcinomatosis as per records. Subsequent ERCP with biliary stent removal and exchange done at [facility] last March 2020. Last night, patient noted mildly achy upper abdominal pain with emesis, no fever, no chills. Not a lot of abdominal pain today but lots of vomiting as per patient. No bowel movement. Denies chest pain, S OB. Patient seen at [facility] oncology office. Outpatient lab results today as follows : Hemoglobin 11.3, hematocrit 34, WBC 8, platelets 430 Serum sodium 141, potassium 4.2, chloride 101, CO2 27, BUN 25, creatinine 1.5, glucose 132, AST 71, ALT 68, alk phos 167, magnesium 1.2 Patient directed to ER for further evaluation. 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 Admission Exam Per Admitting Provider GENERAL: Comfortable, pleasant, no respiratory distress SKIN: Pallor , warm HEENT: Bespectacled, pale palpebral conjunctivae, no ptosis, dry buccal mucosa NECK : Supple, no tenderness CHEST : CTA, no tenderness HEART : RRR, no obvious murmurs ABDOMEN: Some distention, no overt tenderness EXTREMITIES : Minimal LE swelling, no LE tenderness, no other conspicuous deformities noted NEUROLOGIC : Coherent, no facial asymmetry, no other gross focality Principal Diagnosis Abdominal pain: Nausea/vomiting Recurrent ascites Nonspecific enteritis LUI on CKD stage III Covid 19 ruled out History of ovarian cancer with peritoneal carcinomatosis with ongoing chemotherapy History of nonsustained ventricular tachycardia History of chronic anemia History of hypertension Ongoing tobacco use Discharge Exam ROS-No Headache, No Visual Changes, No Nausea, No Vomiting, No Fever, No Chills, No Neck Pain or Stiffness, No Chest Pain, No Palpitations, No SOB, No HARRISON, No Cough, No Sputum, No Wheezing, No Abdominal Pain, No Diarrhea, No Hematemesis, No Hemoptysis, No Unexpected Weight Loss, No Flank pain, No Melena, No Hematochezia, No Frequency, No Urgency, No Burning, No Hematuria, No Rashes, No Diaphoresis. Appetite is Normal Physical Exam Gen-AAO x 3, NAD, Afebrile Head-NCAT, EOMI, PERRLA, Anicteric Sclera, No Posterior Pharyngeal Erythema Neck-Supple, No JVD, No Thyromegaly, No Masses, No LAD, No Bruits Lungs-Clear to Auscultation Bilaterally, No Rales, No Rhonchi, No Wheezing, No Crepitus Chest-No S4, +S1, +S2, No S3, No Murmurs, No Rubs, No Gallops, No Ectopy Abdomen-Soft, Bowel Sounds Present, Non Tender, Non Distended, No Hepatomegaly, No Splenomegaly, No Palpable Masses, No Rebound, No Rigidity, No Guarding Musculoskeletal-Full Range of Motion Bilaterally, No CVAT Extremities-No Cyanosis, No Clubbing, No Edema Nuero-Cranial Nerves II-XII grossly intact, Motor WNL, DTRs WNL, Strength WNL, Non Focal Psych-Normal Mood Discharge Data Allergies Allergy/AdvReac Type Severity Reaction Status Date / Time castor oil Allergy Severe ANAPHYLAXIS Verified 05/05/20 16:06 paclitaxel Allergy Severe ANAPHYLAXIS Verified 05/05/20 16:06 Ethanol Allergy Severe ANAPHYLAXIS Uncoded 05/05/20 16:06 Consultations 05/05/20 19:04 ED Decision to Admit Stat 05/06/20 08:54 Consult Gastroenterology Routine Ordered Studies 05/05/20 20:21 CT abd pelvis wo con Stat 05/06/20 15:00 US abdomen ltd ascites Routine Current Diagnoses Unspecified abdominal pain (05/05/20) Allergies castor oil Allergy (Severe, Verified 05/05/20 16:06) ANAPHYLAXIS paclitaxel Allergy (Severe, Verified 05/05/20 16:06) ANAPHYLAXIS Ethanol Allergy (Severe, Uncoded 05/05/20 16:06) ANAPHYLAXIS Height/Weight/Isolation Height 5 ft 7 in Weight 78.4 kg Chemistry 05/05/20 05/06/20 15:45 06:10 Sodium 141 143 Potassium 4.1 3.9 Chloride 103 107 Carbon Dioxide 27 27 Anion Gap 10.0 9.0 BUN 27 H 25 H Creatinine 1.67 H 1.65 H Glucose 96 82 Urinalysis 05/06/20 08:54 Urine Color Dark Yellow Urine Appearance Clear Urine pH 5.0 Ur Specific [place] 1.018 Urine Protein 1+ H Urine Glucose (UA) Negative Urine Ketones Negative Urine Blood Negative Urine Nitrite Negative Urine Bilirubin 1+ H Microbiology 05/05/20 16:25 Blood Aerobic Blood Culture - Preliminary No growth in Aerobic bottle after 24 hours. 05/05/20 16:25 Blood Anaerobic Blood Culture - Preliminary No growth in Anaerobic bottle after 24 hours. 05/05/20 15:45 Blood Aerobic Blood Culture - Preliminary No growth in Aerobic bottle after 24 hours. 05/05/20 15:45 Blood Anaerobic Blood Culture - Preliminary No growth in Anaerobic bottle after 24 hours. Hospital Course (1) Abdominal pain: Nausea/vomiting on admission-Resolved and tolerating diet Recurrent ascites-IR found no ascitic fluid to tap Nonspecific enteritis LUI on CKD stage III Covid 19 ruled out History of ovarian cancer with peritoneal carcinomatosis with ongoing chemotherapy History of nonsustained ventricular tachycardia History of chronic anemia History of hypertension Ongoing tobacco use GI cleared her for DC from their standpoint. Patient currently on diet and tolerating well. Denies any further nausea or vomiting. LUI on CKD resolved DC home and f/u c Dr Sifuentes Total Time Total Time Spent Total Time Spent (In Minutes): 45 min Total Time Includes: Examination of the Patient, Discharge Planning, Medication Reconciliation and Communication With Other Providers Discharge Plan Discharge Items Patient Disposition: Home - Self-Care Reason For Visit: ARF Discharge Diagnosis: Abdominal pain: Nausea/vomiting Recurrent ascites Nonspecific enteritis LUI on CKD stage III Covid 19 ruled out History of ovarian cancer with peritoneal carcinomatosis with ongoing chemotherapy History of nonsustained ventricular tachycardia History of chronic anemia History of hypertension Ongoing tobacco use Condition on Discharge: Good Activity: Resume your previous activity Lifting: Gradually increase as tolerated Bathing: No limitations Sexual Activity: When tolerated Exercise/Sports: Gradually increase as tolerated Driving/Machine Use: No limitations Weightbearing: Full weightbearing Non-emergency contact: Primary Care Provider Call non-emergency contact if: you have any medication questions Follow-up/Referrals: Doug Sifuentes DO [Primary Care Provider] - (Date & Time 05/13/2020 11:20 AM Provider Doug Sifuentes DO Department General Internal Medicine [facility] ) Diet: Heart Healthy Addtl Attending Provider Instructions: none Pending Studies at Discharge: Yes Stand-Alone Forms: My [facility], Smoking Cessation Medications and DC Order Prescriptions: New prochlorperazine maleate [Compazine] 10 mg tablet 10 mg PO Q8H PRN (Reason: nausea and vomiting) Qty: 30 RF: 0 Continued furosemide [Lasix] 40 mg Tablet 80 mg PO DAILY RF: 0 atenolol 25 mg Tablet 50 mg PO DAILY RF: 0 prochlorperazine maleate [Compazine] 10 mg Tablet 10 mg PO Q6H PRN (Reason: Nausea) RF: 0 aspirin 81 mg Tablet,Delayed Release (Dr/Ec) 81 mg PO DAILY RF: 0 ondansetron 8 mg Tablet,Disintegrating 8 mg PO Q8H PRN (Reason: Nausea) RF: 0 esomeprazole magnesium 20 mg Tablet,Delayed Release (Dr/Ec) 20 mg PO DAILY RF: 0 potassium chloride 20 mEq tablet extended release 20 meq PO BID Qty: 60 RF: 1 levocetirizine [Xyzal] 5 mg Tablet 5 mg PO DAILY RF: 0 magnesium chloride 64 mg tablet,delayed release (DR/EC) 64 mg PO QID RF: 0 Discharge Orders: Discharge Order (Routine); Ordered 05/07/20 Ordered By: Ja Sargent Admission Data Admit Date/Time: 05/05/20 20:23 Attending Provider: Ja Sargent Admit Provider: Chad Davis Primary Care Provider: Doug Sifuentes Other Providers: Chad Davis ; Gale Coates ; Yessenia Sepulveda ; Esteban Lobo ; Loulou Mcbride ; Garo Esparza ; Karishma Carballo ; Lindsay Eaton ; Zacarias Guardado ; Johnny Montelongo ; Sera Dent ; Ana Laura Sim ; Latoya Bernal ; Sammi Sandy ; Belle Mcdonald
[2020-05-07] MEDS: HEPARIN 100 UNIT/ML 5ML FLUSH FLUSH PRN (15:51)
== END 2020-05-07 16:55 | disposition home or self-care (01) ==
LOC: ED 14:09 → SUATTDRO 20:23 → 2W 20:23 → 3N 05-07 00:44